=== PATIENT | female | born 1930 | race Caucasian/White ===

== ENCOUNTER 2017-09-22 14:09 | Inpatient (IN) | payer OTHER ==
[2017-09-22 15:11] LABS: Absolute Lymphocytes (CBC) 1.4 K/uL (0.7-4.9); Absolute Monocytes 0.8 K/uL (0.1-1.3); Absolute Neutrophil 6.7 K/uL (1.8-8.0); Basophils % 0.6 % (0-1.3); Hematocrit 28.8 % (36.0-45.0); Lymphocytes % 15.3 % (15.3-44.8); MCH 27.1 pg (27.0-35.0); MCV 87.8 fL (80-100); MPV 9.3 fL (7.6-11.3); Monocytes % 9.1 % (3.3-12.3); RBC Red Blood Cell Count 3.28 M/uL (3.86-4.86)
--- NOTE | 2017-09-22 15:12 | RAD REPORT ---
EXAM DESCRIPTION: [place] Single View4 2:46 pm CLINICAL HISTORY: Chest pain COMPARISON: August 31, 2017 FINDINGS: The lungs appear clear of acute infiltrate. The heart is mildly enlarged. Postsurgical changes involve the chest. IMPRESSION: No acute abnormalities displayed
[2017-09-22 15:35] LABS: Albumin 3.2 g/dL (3.2-5.5); Bilirubin Direct 0.1 mg/dL (0-0.2); Bilirubin Total 0.5 mg/dL (0.3-1.2); Magnesium 2.4 mg/dL (1.8-2.5); Protein, Total 6.3 g/dL (6.0-8.3)
[2017-09-22 15:41] LABS: Potassium 5.7 mEq/L (3.6-5.0)
--- NOTE | 2017-09-22 16:05 | EDPHYS ---
Physician Documentation [facility] Name: Lainey Johnson Age: 87 yrs Sex: Female : 1930 Arrival Date: 09/22/2017 Time: 14:12 Bed 3 Private MD: ED Physician Sergio Johnson HPI: 09/22 14:39 This 87 yrs old Female presents to ER via EMS with complaints of Fall Injury kdr \T\ near syncope. 14:39 The patient has experienced near-syncope, felt dizzy, felt faint, felt generally weak. kdr Onset: The symptoms/episode began/occurred suddenly, just prior to arrival. Duration: This was a single episode, that lasted an unknown period of time. Context: the episode(s) was witnessed, by family, son, occurred on a street or driveway, While walking, occurred while the patient was walking, Just prior to the episode the patient experienced dizziness, weakness. Associated injury: Other: There is blood around her mouth but no obvious injury to her lips or mouth. Associated signs and symptoms: Pertinent positives: dizziness, lightheadedness, weakness. Current symptoms: Still feels generally weak but no other c/o at this time. The patient has experienced similar episodes in the past, today's symptoms are similar, to previous The patient states that she has had similar problems before. The patient has been recently seen by a physician: The patient was recently discharged from [facility] for cellulitis of both feet. She spent a few days in [place] [facility] and was then discharged. Historical: - Allergies: 14:36 CHLORINE; jl7 14:36 Lyrica; jl7 14:36 metformin; jl7 14:36 Morphine; jl7 14:36 Sulfa (Sulfonamide Antibiotics); jl7 14:36 Tetanus Vaccines \T\ Toxoid; jl7 - Home Meds: 14:36 gabapentin 600 mg oral tab [Active]; Lasix 40 mg Oral tab 1 tab once daily [Active]; jl7 atorvastatin 10 mg Oral tab 1 tab nightly [Active]; tizanidine 4 mg oral cap [Active]; ropinirole 2 mg oral tab 1 tab [Active]; losartan 100 mg Oral tab 1 tab once daily [Active]; mirtazapine 15 mg Oral tab 1 tab once daily [Active]; Januvia 50 mg oral tab [Active]; metoprolol succinate 100 mg Oral Tb24 1 tab once daily [Active]; meclizine 25 mg Oral tab 1 tab 3 times per day [Active]; omeprazole 40 mg Oral cpDR once daily [Active]; Plavix 75 mg Oral tab 1 tab once daily [Active]; acetaminophen-codeine 300-15 mg Oral tab 1 tab every 6 hours [Active]; tramadol 50 mg Oral tab [Active]; promethazine 12.5 mg Oral tab [Active]; Flomax 0.4 mg Oral cp24 1 cap once daily [Active]; duloxetine 20 mg Oral cpDR 2 times per day [Active]; allopurinol 100 mg Oral tab 1 tab once daily [Active]; aspirin 81 mg Oral TbEC 1 tab once daily [Active]; Levemir 100 unit/mL subcutaneous soln [Active]; Novolin R Sub-Q per sliding scale [Active]; - PMHx: 14:36 Anemia; CAD; Depression; Diabetes - IDDM; GERD; Gout; High Cholesterol; Hypertension; jl7 Myocardial infarction; restless leg syndrome; - PSHx: 14:36 double bypass; Hysterectomy; jl7 15:35 leg surgery; Lumpectomy; throat expansion surgery; hiatal hernia; Hernia repair; back ae1 surgery; liver bypass; - Immunization history: Last tetanus immunization: unknown. - Social history:: Smoking status: Patient/guardian denies using tobacco. ROS: 14:39 Constitutional: Negative for fever, chills, and weight loss, Eyes: Negative for injury, kdr pain, redness, and discharge, Neck: Negative for injury, pain, and swelling, Cardiovascular: Negative for chest pain, palpitations, and edema, Respiratory: Negative for shortness of breath, cough, wheezing, and pleuritic chest pain, Abdomen/GI: Negative for abdominal pain, nausea, vomiting, diarrhea, and constipation, Back: Negative for injury and pain, : Negative for injury, bleeding, discharge, and swelling, MS/Extremity: Negative for injury and deformity, Skin: Negative for injury, rash, and discoloration, Psych: Negative for depression, anxiety, suicide ideation, homicidal ideation, and hallucinations, Allergy/Immunology: Negative for hives, rash, and allergies, Endocrine: Negative for neck swelling, polydipsia, polyuria, polyphagia, and marked weight changes, Hematologic/Lymphatic: Negative for swollen nodes, abnormal bleeding, and unusual bruising. 14:39 Neuro: Positive for dizziness, near syncope, tremor, weakness, Negative for altered mental status, headache, hearing loss, loss of consciousness, numbness, seizure activity, speech changes, syncope, tingling, tinnitus, visual changes. Exam: 15:41 Constitutional: This is a well developed, well nourished patient who is awake, alert, kdr and in no acute distress. Head/Face: Normocephalic, atraumatic. Eyes: Pupils equal round and reactive to light, extra-ocular motions intact. Lids and lashes normal. Conjunctiva and sclera are non-icteric and not injected. Cornea within normal limits. Periorbital areas with no swelling, redness, or edema. Neck: Trachea midline, no thyromegaly or masses palpated, and no cervical lymphadenopathy. Supple, full range of motion without nuchal rigidity, or vertebral point tenderness. No Meningismus. Chest/axilla: Normal chest wall appearance and motion. Nontender with no deformity. No lesions are appreciated. Respiratory: Lungs have equal breath sounds bilaterally, clear to auscultation and percussion. No rales, rhonchi or wheezes noted. No increased work of breathing, no retractions or nasal flaring. Abdomen/GI: Soft, non-tender, with normal bowel sounds. No distension or tympany. No guarding or rebound. No evidence of tenderness throughout. Back: No spinal tenderness. No costovertebral tenderness. Full range of motion. Skin: Warm, dry with normal turgor. Normal color with no rashes, no lesions, and no evidence of cellulitis. MS/ Extremity: Pulses equal, no cyanosis. Neurovascular intact. Full, normal range of motion. Psych: Awake, alert, with orientation to person, place and time. Behavior, mood, and affect are within normal limits. 15:41 Chest/axilla: Inspection: normal, Palpation: is normal, Axilla: are normal, Breasts: 15:41 Cardiovascular: Rate: bradycardic, Rhythm: irregular, Pulses: no pulse deficits are appreciated, Heart sounds: normal, Edema: is not appreciated, JVD: is not appreciated. Vital Signs: 14:12 BP 109 / 42; Pulse 48; Resp 14 S; Temp 97.6(O); Pulse Ox 93% on R/A; Weight 77.56 kg jl7 (R); Height 5 ft. 4 in. (162.56 cm) (R); Pain 6/10; 15:08 BP 106 / 48; Pulse 47; Resp 16 S; Pulse Ox 99% on 2 lpm NC; jl7 15:53 BP 105 / 46; Pulse 49; Resp 14 S; Pulse Ox 99% on 2 lpm NC; jl7 14:12 Body Mass Index 29.35 (77.56 kg, 162.56 cm) jl7 Moffat Coma Score: 14:12 Eye Response: spontaneous(4). Verbal Response: oriented(5). Motor Response: obeys jl7 commands(6). Total: 15. Trauma Score (Adult): 14:12 Eye Response: spontaneous(1); Verbal Response: oriented(1); Motor Response: obeys jl7 commands(2); Systolic BP: > 89 mm Hg(4); Respiratory Rate: 10 to 29 per min(4); Edward Score: 15; Trauma Score: 12 MDM: 14:13 Patient medically screened. [facility] 09/22 14:17 Order name: Basic Metabolic Panel; Complete Time: 15:57 kdr 09/22 14:17 Order name: BNP; Complete Time: 15:38 kdr 09/22 14:17 Order name: CBC with Diff; Complete Time: 15:38 kdr 09/22 14:17 Order name: LFT's; Complete Time: 15:57 kdr 09/22 14:17 Order name: Magnesium; Complete Time: 15:57 kdr 09/22 14:17 Order name: PT-INR; Complete Time: 15:38 kdr 09/22 14:17 Order name: Ptt, Activated; Complete Time: 15:38 kdr 09/22 14:17 Order name: Troponin (emerg Dept Use Only); Complete Time: 15:38 kdr 09/22 14:17 Order name: XRAY Chest (1 view); Complete Time: 15:38 kdr 09/22 14:17 Order name: EKG; Complete Time: 14:18 kdr 09/22 14:17 Order name: Cardiac monitoring; Complete Time: 14:27 kdr 09/22 14:17 Order name: EKG - Nurse/Tech; Complete Time: 14:27 kdr 09/22 14:17 Order name: IV Saline Lock; Complete Time: 15:00 kdr 09/22 14:17 Order name: Labs collected and sent; Complete Time: 15: kdr 09/22 14:17 Order name: O2 Per Protocol; Complete Time: kdr 09/22 14:17 Order name: O2 Sat Monitoring; Complete Time: : kdr Administered Medications: 16:05 Drug: Albuterol 2.5 mg Route: Inhalation; jl7 16:08 Drug: D50W 50 ml Route: IVP; Site: left upper arm; [facility] 16:52 Follow up: Response: No adverse reaction [facility] 16:11 Drug: Insulin Regular Human 10 units {Co-Signature: ae1 (Brad Kwok RN).} Route: jl7 IVP; Site: left upper arm; 16:52 Follow up: Response: No adverse reaction [facility] 16:22 Drug: Calcium Gluconate 1 grams Route: IVPB; Infused Over: 60 mins; Site: left upper [facility] arm; 17:22 Follow up: Response: No adverse reaction; IV Status: Completed infusion [facility] 16:23 Drug: Albuterol 2.5 mg Route: Inhalation; [facility] 16:52 Drug: Albuterol 2.5 mg Route: Inhalation; [facility] Disposition: 09/22/17 16:05 Hospitalization ordered by Kenton Olmedo for Inpatient Admission. Preliminary diagnosis is Acute renal failure, hyperkalemia, altered mental status. - Bed requested for Telemetry/MedSurg (Inpatient). - Status is Inpatient Admission. jl7 - Condition is Fair. - Problem is new. - Symptoms are unchanged. UTI on Admission? No Signatures: Dispatcher [employer] EDSergio Walter MD MD kdr Williams, Irene, RN RN iw Elliott, Andrea, RN RN ae1 Holger Luna RN RN jl7 Brad Kwok RN ae1
--- NOTE | 2017-09-22 16:05 | ER ---
Nurse's Notes [facility] Name: Lainey Johnson Age: 87 yrs Sex: Female : 1930 Arrival Date: 09/22/2017 Time: 14:12 Bed 3 Private MD: Diagnosis: Acute renal failure, hyperkalemia, altered mental status Presentation: 09/22 14:12 Presenting complaint: EMS states: Pt got dizzy and fell to the ground, denies LOC. Son tavo eased her to the ground. Her HR was 45 upon arrival, BP was 100 systolic. Care prior to arrival: Medication(s) given: Atropine .5 mg, IVP IV initiated. 22 GA, in the left antecubital area. Mechanism of Injury: Fall from standing position. Trauma event details: Injury occurred in the [facility]. 14:12 Acuity: BRIANA 3 jl7 14:12 Method Of Arrival: EMS: [facility] jl7 15:10 Transition of care: patient was not received from another setting of care. Onset of tavo symptoms was September 22, 2017. Trauma Activation: Not Applicable Physician: ED Physician; Name: ; Notified At: ; Arrived At: Physician: General Surgeon; Name: ; Notified At: ; Arrived At: Physician: Radiology; Name: ; Notified At: ; Arrived At: Physician: Respiratory; Name: ; Notified At: ; Arrived At: Physician: Lab; Name: ; Notified At: ; Arrived At: Historical: - Allergies: 14:36 CHLORINE; jl7 14:36 Lyrica; jl7 14:36 metformin; jl7 14:36 Morphine; jl7 14:36 Sulfa (Sulfonamide Antibiotics); jl7 14:36 Tetanus Vaccines \T\ Toxoid; jl7 - Home Meds: 14:36 gabapentin 600 mg oral tab [Active]; Lasix 40 mg Oral tab 1 tab once daily [Active]; jl7 atorvastatin 10 mg Oral tab 1 tab nightly [Active]; tizanidine 4 mg oral cap [Active]; ropinirole 2 mg oral tab 1 tab [Active]; losartan 100 mg Oral tab 1 tab once daily [Active]; mirtazapine 15 mg Oral tab 1 tab once daily [Active]; Januvia 50 mg oral tab [Active]; metoprolol succinate 100 mg Oral Tb24 1 tab once daily [Active]; meclizine 25 mg Oral tab 1 tab 3 times per day [Active]; omeprazole 40 mg Oral cpDR once daily [Active]; Plavix 75 mg Oral tab 1 tab once daily [Active]; acetaminophen-codeine 300-15 mg Oral tab 1 tab every 6 hours [Active]; tramadol 50 mg Oral tab [Active]; promethazine 12.5 mg Oral tab [Active]; Flomax 0.4 mg Oral cp24 1 cap once daily [Active]; duloxetine 20 mg Oral cpDR 2 times per day [Active]; allopurinol 100 mg Oral tab 1 tab once daily [Active]; aspirin 81 mg Oral TbEC 1 tab once daily [Active]; Levemir 100 unit/mL subcutaneous soln [Active]; Novolin R Sub-Q per sliding scale [Active]; - PMHx: 14:36 Anemia; CAD; Depression; Diabetes - IDDM; GERD; Gout; High Cholesterol; Hypertension; jl7 Myocardial infarction; restless leg syndrome; - PSHx: 14:36 double bypass; Hysterectomy; jl7 15:35 leg surgery; Lumpectomy; throat expansion surgery; hiatal hernia; Hernia repair; back ae1 surgery; liver bypass; - Immunization history: Last tetanus immunization: unknown. - Social history:: Smoking status: Patient/guardian denies using tobacco. Screenin:12 Abuse screen: Denies threats or abuse. Denies injuries from another. Nutritional jl7 screening: No deficits noted. Tuberculosis screening: No symptoms or risk factors identified. 15:09 Fall Risk Fall in past 12 months (25 points). IV access (20 points). Gait- Weak (10 jl7 pts.). Total Marrero Fall Scale indicates High Risk Score (45 or more points). Fall prevention measures have been instituted. Side Rails Up X 2 Placed Close to Nursing Station Frequent Obs/Assessments Occuring Family Present and informed to notify staff if the need to leave the bedside As available patient and family educated on Fall Prevention Program and Strategies. Primary Survey: 14:12 A: Airway: patent. Breathing/Chest: Respiratory pattern: regular, Respiratory effort: jl7 spontaneous, Chest inspection: symmetrical rise and fall of the chest. Circulation: Skin color: pink. Disability Alert. 15:10 Reassessment Breathing/Chest Respiratory pattern Regular Respiratory effort Spontaneous jl7 Unlabored Breath sounds Clear Chest inspection Symmetrical. Assessment: 14:30 General: Appears in no apparent distress. uncomfortable, Behavior is calm, cooperative, jl7 appropriate for age. Pain: Complains of pain in headache Pain currently is 6 out of 10 on a pain scale. Neuro: Level of Consciousness is awake, alert, obeys commands, Oriented to person, place, time, situation. EENT: Dentures present. dried blood noted around lips. Small abrasion noted to middle of bottom lip.. Cardiovascular: Patient's skin is warm and dry. Respiratory: Airway is patent Respiratory effort is even, unlabored, Respiratory pattern is regular, symmetrical, Breath sounds are clear bilaterally. GI: No signs and/or symptoms were reported involving the gastrointestinal system. : No signs and/or symptoms were reported regarding the genitourinary system. Derm: Skin is pink, warm \T\ dry. Musculoskeletal: No signs and/or symptoms reported regarding the musculoskeletal system. 15:55 Reassessment: Patient and/or family updated on plan of care and expected duration. Pain jl7 level reassessed. Patient is alert, oriented x 3, equal unlabored respirations, skin warm/dry/pink. family remains at the bedside. 16:45 Reassessment: Dr. Olmedo at bedside discussing plan of care. jl7 Vital Signs: 14:12 BP 109 / 42; Pulse 48; Resp 14 S; Temp 97.6(O); Pulse Ox 93% on R/A; Weight 77.56 kg jl7 (R); Height 5 ft. 4 in. (162.56 cm) (R); Pain 6/10; 15:08 BP 106 / 48; Pulse 47; Resp 16 S; Pulse Ox 99% on 2 lpm NC; jl7 15:53 BP 105 / 46; Pulse 49; Resp 14 S; Pulse Ox 99% on 2 lpm NC; jl7 14:12 Body Mass Index 29.35 (77.56 kg, 162.56 cm) jl7 Kinsman Coma Score: 14:12 Eye Response: spontaneous(4). Verbal Response: oriented(5). Motor Response: obeys jl7 commands(6). Total: 15. Trauma Score (Adult): 14:12 Eye Response: spontaneous(1); Verbal Response: oriented(1); Motor Response: obeys jl7 commands(2); Systolic BP: > 89 mm Hg(4); Respiratory Rate: 10 to 29 per min(4); Kinsman Score: 15; Trauma Score: 12 ED Course: 14:12 Patient arrived in ED. jl7 14:12 Sergio Johnson MD is Attending Physician. kdr 14:12 Patient has correct armband on for positive identification. Placed in gown. Bed in low jl7 position. Call light in reach. Side rails up X2. 14:12 Oxygen administration via nasal cannula \T\ 2L/min. Thermoregulation: warm blanket given jl7 to patient. 14:15 Triage completed. jl7 14:26 EKG done, by ED staff, reviewed by Sergio Johnson MD. jb1 14:41 X-ray completed. Portable x-ray completed in exam room. Patient tolerated procedure la2 well. 14:44 XRAY Chest (1 view) In Process Unspecified. EDMS 14:59 Accessed peripheral vein via ultrasound, utilizing dynamic ultrasound technique using la1 18G Nexia IV Catheter Clean \T\ dry. Good blood return. Flushes easily. 15:08 Arm band placed on right wrist. jl7 15:30 Holger Luna, IRIS is Primary Nurse. jl7 15:41 Notified ED physician of a critical lab result(s). K-5.7. la1 16:03 Kenton Olmedo MD is Hospitalizing Provider. kdr 17:24 No provider procedures requiring assistance completed. Patient admitted, IV remains in jl7 place. intact, No redness/swelling at site. Administered Medications: 16:05 Drug: Albuterol 2.5 mg Route: Inhalation; jl7 16:08 Drug: D50W 50 ml Route: IVP; Site: left upper arm; jl7 16:52 Follow up: Response: No adverse reaction jl7 16:11 Drug: Insulin Regular Human 10 units {Co-Signature: ae1 (Brad Kwok RN).} Route: jl7 IVP; Site: left upper arm; 16:52 Follow up: Response: No adverse reaction jl7 16:22 Drug: Calcium Gluconate 1 grams Route: IVPB; Infused Over: 60 mins; Site: left upper jl7 arm; 17:22 Follow up: Response: No adverse reaction; IV Status: Completed infusion jl7 16:23 Drug: Albuterol 2.5 mg Route: Inhalation; jl7 16:52 Drug: Albuterol 2.5 mg Route: Inhalation; jl7 Outcome: 16:05 Decision to Hospitalize by Provider. kdr 17:24 Admitted to Med/surg accompanied by tech, family with patient, via stretcher, room 408, jl7 Report called to Nurse Charity 17:24 Condition: stable 17:24 Discharge instructions given to patient, Instructed on the need for admit, Demonstrated understanding of instructions. 17:25 Patient left the ED. jl7 Signatures: Dispatcher [employer] EDPranav Mohamud jbSergio Parekh MD MD kdr Flaco Espitia RN RN la1 Brad Kwok RN RN ae1 Holger Luna RN RN jl7 Kavita Cleary2 Brad Kwok RN ae1
[2017-09-22] MEDS ORDERED: ONDANSETRON 4 MG/2 ML VIAL IV PRN (16:20)
[2017-09-22] MEDS ORDERED: INSULIN -REGULAR HUMAN 50 UNIT/0.5 ML ML ONE (16:22)
[2017-09-22] MEDS ORDERED: ALBUTEROL 2.5 MG/3 ML NEB SOL ONE (16:22)
[2017-09-22] MEDS ORDERED: D50W 25 GM/50 ML SYRINGE IV ONE (16:22)
[2017-09-22] MEDS: INSULIN -REGULAR HUMAN 50 UNIT/0.5 ML ML SQ SCH ×2 (16:30→21:00)
[2017-09-22] MEDS ORDERED: CALCIUM GLUCONATE 1gm/100 ML NS (4.65 mEq/100mL) IV ONE ×2 (17:00)
[2017-09-22] MEDS: ENOXAPARIN 30 MG/0.3 ML SQ SCH ×2 (17:00→20:53)
[2017-09-22] MEDS: NA CHLORIDE 0.9% 1,000 ML IV SCH ×2 (17:00→20:51)
[2017-09-22] MEDS: ACETAMINOPHEN 500 MG TAB PO PRN (20:54)
--- NOTE | 2017-09-23 02:05 | HP ---
Date of Admission: 09/22/2017 Code Status: DNR. Chief Complaint: Near syncopal episode. History Of Present Illness: The patient is an 87-year-old female with past medical history of diabetes, heart disease, hyperlipidemia, hypertension, restless legs syndrome, coronary artery disease, anemia, who was recently discharged from the hospital with urinary tract infection. The patient had been discharged to rehab where she received 2 weeks of IV antibiotics and was then discharged home. Since being home, the patient has noticed some difficulty keeping her posture and reports some pain in her back and neck, which is chronic. The patient does use a walker and was walking with her son. When she had a near syncopal episode, the patient states that she was unable to keep herself upright. She did not lose consciousness. She fell towards the wall, but her son was able to catch her. She did hit and ended up hiting her lip with some bleeding. No head trauma or fall. No seizure-type activity. The patient's symptoms are constant, moderate, and progressively worsening. The patient denies any urinary or fecal incontinence. No fevers or chills. The patient was then brought into the ER. Upon arrival, her workup revealed a potassium of 5.7. Creatinine was 2.96 upon discharge. Previous admission was normal. Troponin level was 0.05. WBC was normal. Of note, the patient was recently started on gabapentin 600 mg 2 pills at bedtime. The patient did take her medications today. Chest x-ray was done, which did not show any acute changes. The patient was then referred for admission. The patient was also given some treatment for her hyperkalemia. When seen in the ER, the patient was awake, alert, oriented x3, in some mild distress. Past Medical History: Diabetes, anemia, coronary artery disease status post CABG, depression, GERD, gout, hyperlipidemia, hypertension, history of MA, and restless legs syndrome. Surgical History: Hysterectomy, hiatal hernia repair, CABG, cardiac stents, right leg surgery. Allergies: SULFA, WHICH CAUSES ITCHING, HIVES AND RASH. METFORMIN, MORPHINE WHICH CAUSES RASH. PREGABALIN ALSO CAUSES RASH. CHLORINE CAUSES ANAPHYLAXIS. TETANUS VACCINE ALSO CAUSES RASH. Medications: Reviewed. Social History: The patient denies any illicit drug use, alcohol use, or tobacco use. She uses a walker for ambulation. The patient was recently to be discharged from rehab, has good social support. Family History: Both parents had heart disease. Review of Systems: An 11-point system reviewed, negative except as per HPI. Physical Examination: VITAL SIGNS: Blood pressure 109/42, pulse 48, respirations 14, temperature 97.6 , pulse ox 93% on room air. General: Awake, alert, oriented x3. Some mild distress. Elderly female, somewhat ill-appearing. HEENT: Normocephalic, atraumatic. PERRLA. EOMI. Dry mucous membranes. Some dried blood in the mouth around the lips. Oropharynx is clear. No exudate. Poor dentition. Conjunctivae anicteric. Neck: Supple. No JVD. Trachea midline. CV: S1 and S2. Sinus bradycardia. Peripheral pulses are weak bilaterally. Respiratory: Clear to auscultation bilaterally. No wheezing. No stridor. No use of accessory muscles. Gastrointestinal: Abdomen is soft, nontender, nondistended. Positive bowel sounds. No guarding or rigidity. Extremities: No clubbing, cyanosis. The patient does have chronic venous stasis edema. No calf tenderness. Skin: Chronic venous stasis changes of the bilateral lower extremities. Neuro: Cranial nerves 2 through 12 intact grossly. No focal neurological deficit. Strength is 5/5 bilateral upper and lower extremities. Sensation is decreased to light touch in the lower extremities. Speech is normal. Psych: Mood is okay. Affect is full. Insight and judgment are fair. Laboratory Data: WBCs 9.1, H and H 8.9 and 28.8, platelets 212, neutrophils 74% . INR 1. Sodium 139, potassium 5.7, chloride 104, CO2 27, BUN 75, creatinine 2.96, glucose 151, calcium 8, magnesium 2.4. Troponin 0.05. BNP 837. Chest x- ray shows no acute abnormality. Assessment And Plan: An 87-year-old female with. 1. Acute dehydration. We will continue with IV fluids. 2. Near syncopal episode. Unclear etiology may be related to medication side effect. Recently started on gabapentin 1200 mg versus dehydration or neurocardiac etiology. We will place on cardiac telemetry and monitor. The patient is slightly bradycardic. We will place on fall precautions and obtain PT evaluation. 3. Hyperkalemia. The patient has received treatment including calcium, albuterol, insulin, and dextrose. We will repeat potassium level. 4. Diabetes mellitus type 2 with hyperglycemia with long-term use of insulin. We will continue sliding scale insulin and resume home medications. 5. Anemia of chronic disease. Monitor H and H. 6. Coronary artery disease status post coronary artery bypass graft, [place] artery, [place] heart without angina. 7. Mildly elevated troponin level. 8. Major depressive disorder. 9. Gastroesophageal reflux disease. Continue PPI. 10. Gout. 11. Hyperlipidemia mixed. 12. Essential hypertension. 13. Restless legs syndrome. The patient's Requip dose has been doubled. 14. Gastrointestinal and deep venous thrombosis prophylaxis with PPI and Lovenox. Plan: Admit the patient to med surgical inpatient. Reconcile home medications once available. Patient does have medical power of practice consultant and living will MATTHEW Voice ID: [id number] BRENDA
[2017-09-23] MEDS: NA CHLORIDE 0.9% 1,000 ML IV SCH ×2 (03:00→13:38)
[2017-09-23 04:32] LABS: Absolute Lymphocytes (CBC) 1.7 K/uL (0.7-4.9); Absolute Monocytes 1.2 K/uL (0.1-1.3); Absolute Neutrophil 6.4 K/uL (1.8-8.0); Basophils % 0.8 % (0-1.3); Eosinophils % 1.2 % (0-4.4); Hematocrit 29.7 % (36.0-45.0); Lymphocytes % 18.2 % (15.3-44.8); MCH 27.1 pg (27.0-35.0); MPV 9.9 fL (7.6-11.3); Monocytes % 12.4 % (3.3-12.3); RBC Red Blood Cell Count 3.38 M/uL (3.86-4.86)
[2017-09-23 04:33] LABS: Albumin 3.2 g/dL (3.2-5.5); Bilirubin Total 0.6 mg/dL (0.3-1.2); Protein, Total 6.5 g/dL (6.0-8.3)
[2017-09-23 04:52] LABS: Potassium 5.5 mEq/L (3.6-5.0)
--- NOTE | 2017-09-23 07:10 | EKG ---
Test Date: 2017-09-22 Test Time: 14:20:24 [employer]ber Roller [employer]inder: FORREST MEASUREMENT RESULTS: Intervals: Rate: 54 SC: 170 QRSD: 94 QT: 524 QTc: 496 [place]: P: 27 SC: 170 QRS: 61 T: 83 INTERPRETIVE STATEMENTS: Sinus bradycardia with premature atrial complexes in bigeminy T wave abnormality, consider anterior ischemia Prolonged QT Abnormal ECG Compared to ECG 08/29/2017 16:27:23 Premature atrial complexes are now present Prolonged QT interval now present Sinus rhythm no longer present T-wave abnormality still present Electronically Signed On 09-23-17 07:09:31 CDT by Damion Ramsey
[2017-09-23] MEDS: INSULIN -REGULAR HUMAN 50 UNIT/0.5 ML ML SQ SCH ×4 (07:30→21:00)
[2017-09-23] MEDS ORDERED: TRAMADOL HCL 50 MG TAB PO SCH (09:00)
[2017-09-23] MEDS ORDERED: METOPROLOL XL 100 MG TAB PO SCH (09:00)
[2017-09-23] MEDS: INSULIN DETEMIR 100 UNIT/1 ML INSULIN SQ SCH ×2 (09:00→21:00)
[2017-09-23] MEDS: ASPIRIN 81 MG CHEWABLE TABLET PO SCH (09:37)
[2017-09-23] MEDS: TAMSULOSIN 0.4 MG SR CAP PO SCH (09:37)
[2017-09-23] MEDS: DULOXETINE 20 MG CAP PO SCH (09:37)
[2017-09-23] MEDS: ROPINIROLE HCL 1 MG TAB PO SCH ×2 (09:38→22:38)
[2017-09-23] MEDS: CLOPIDOGREL 75 MG TABLET PO SCH (09:38)
[2017-09-23] MEDS: CODEINE 30MG/APAP 300MG TAB PO SCH ×3 (09:39→21:00)
[2017-09-23] MEDS ORDERED: SOD POLYSTYREN SUL 15 GM/60 ML UCUP PO ONE (13:04)
--- NOTE | 2017-09-23 14:26 | P.CNS ---
Date of Consult: 09/23/17 Reason for Consult: Hyperkalemia. AUNG Requesting Physician: Kenton Olmedo Chief Complaint: Near-syncope History of Present Illness: 87 yo WF presented to the ER following an episode of near-syncope. Limited HPI / ROS due to confusion. The patient is an 87-year-old female with past medical history of diabetes, heart disease, hyperlipidemia, hypertension, restless legs syndrome, coronary artery disease, anemia, who was recently discharged from the hospital with urinary tract infection. The patient had been discharged to rehab where she received 2 weeks of IV antibiotics and was then discharged home. Since being home, the patient has noticed some difficulty keeping her posture and reports some pain in her back and neck, which is chronic. The patient does use a walker and was walking with her son. When she had a near syncopal episode, the patient states that she was unable to keep herself upright. She did not lose consciousness. She fell towards the wall, but her son was able to catch her. She did hit and ended up biting her lip with some bleeding. No head trauma or fall. No seizure-type activity. The patient's symptoms are constant, moderate , and progressively worsening. The patient denies any urinary or fecal incontinence. No fevers or chills. The patient was then brought into the ER. Upon arrival, her workup revealed a potassium of 5.7. Creatinine was 2.96 upon discharge. Previous admission was normal. Troponin level was 0.05. WBC was normal. Of note, the patient was recently started on gabapentin 600 mg 2 pills at bedtime. The patient did take her medications today. Chest x-ray was done, which did not show any acute changes. The patient was then referred for admission. The patient was also given some treatment for her hyperkalemia. When seen in the ER, the patient was awake, alert, oriented x3, in some mild distress. 14:39 This 87 yrs old Female presents to ER via EMS with complaints of Fall Injury kdr \T\ near syncope. 14:39 The patient has experienced near-syncope, felt dizzy, felt faint, felt generally weak. kdr Onset: The symptoms/episode began/occurred suddenly, just prior to arrival. Duration: This was a single episode, that lasted an unknown period of time. Context : the episode(s) was witnessed, by family, son, occurred on a street or driveway , While walking, occurred while the patient was walking, Just prior to the episode the patient experienced dizziness, weakness. Associated injury: Other: There is blood around her mouth but no obvious injury to her lips or mouth. Associated signs and symptoms: Pertinent positives: dizziness, lightheadedness, weakness. Current symptoms: Still feels generally weak but no other c/o at this time. The patient has experienced similar episodes in the past, today's symptoms are similar, to previous The patient states that she has had similar problems before. The patient has been recently seen by a physician: The patient was recently discharged from [facility] for cellulitis of both feet. She spent a few days in rehab/[facility]ci and was then discharged. Allergies Sulfa (Sulfonamide Antibiotics) Allergy (Mild, Verified 08/29/17 21:12) Itching/Hives/Rash metformin Allergy (Verified 08/29/17 21:12) Itching/Hives/Rash morphine Allergy (Verified 08/29/17 21:12) Rash pregabalin [From Lyrica] Allergy (Verified 08/29/17 21:12) Rash Tetanus Vaccines and Toxoid Allergy (Verified 08/29/17 21:12) Itching/Hives/Rash CHLORINE Allergy (Severe, Uncoded 08/29/17 21:12) Anaphylaxis Home Medications: Allopurinol [Zyloprim*] 100 mg PO DAILY 10/03/16 Atorvastatin Calcium [Lipitor*] 10 mg PO BEDTIME 10/03/16 Furosemide [Lasix*] 40 mg PO DAILY 10/03/16 Gabapentin 1,200 mg PO BEDTIME 10/03/16 Insulin -Regular Human [Novolin -R*] 0 unit SQ SEECOM 10/03/16 Insulin Detemir [Levemir*] 18 unit SQ BEDTIME 10/03/16 Insulin Detemir [Levemir*] 25 unit SQ DAILY 10/03/16 Ropinirole HCl [Requip*] 2 mg PO BID 10/03/16 Acetaminophen with Codeine [Acetaminophen-Cod #3 Tablet] 1 tab PO Q6H 08/29/17 Aspirin 81 mg PO DAILY 08/29/17 Clopidogrel Bisulfate [Plavix*] 75 mg PO DAILY 08/29/17 Duloxetine HCl 40 mg PO DAILY 08/29/17 Losartan Potassium 100 mg PO DAILY 08/29/17 Meclizine HCl [Antivert*] 12.5 mg PO TID PRN 08/29/17 Metoprolol Succinate [Toprol Xl] 100 mg PO DAILY 08/29/17 Mirtazapine [Remeron*] 15 mg PO DAILY 08/29/17 Omeprazole [Prilosec] 40 mg PO DAILY 08/29/17 Promethazine HCl 12.5 mg PO Q6H PRN 08/29/17 Tamsulosin [Flomax] 0.4 mg PO DAILY #30 cap 09/03/17 Mirtazapine [Remeron] 15 mg PO BEDTIME 09/22/17 Nitrofurantoin Monohyd/M-Cryst [Nitrofurantoin [place]-Mcr 100 mg] 1 tab PO Q12H Sitagliptin Phosphate [Januvia] 50 mg PO DAILY 09/22/17 Tramadol HCl [Ultram] 1 tab PO Q8H 09/22/17 - Past Medical/Surgical History Diabetic: Yes -: Anemia -: CAD -: Depression -: IDDM -: GERD -: Gout -: HLD -: HTN -: DE -: Restless leg syndrome -: Hysterectomy -: Hernia repair -: CABG -: Cardiac stents -: Right leg sx -: Appendectomy -: Cholecystectomy - Family History Mother Medical History: Heart disease Father Medical History: Heart disease Brother Medical History: Heart disease Sister History Unknown: Yes Medical History: Heart disease - Social History Alcohol use: No CD- Drugs: No Caffeine use: Yes Place of Residence: Home Review of Systems 10-point ROS is otherwise unremarkable General: Weakness, Malaise Respiratory: Cough Neurological: Weakness, Confusion Physical Examination Temp Pulse Resp BP Pulse Ox 97.8 F 53 18 114/61 94 09/23/17 08:00 09/23/17 09:00 09/23/17 08:00 09/23/17 09:00 09/23/17 08:00 General: Cooperative, Confused HEENT: Atraumatic, Mucous membr. moist/pink Neck: Supple Respiratory: Clear to auscultation bilaterally Cardiovascular: Regular rate/rhythm, Edema Gastrointestinal: Soft and benign, Non-distended, No guarding Musculoskeletal: No clubbing, No contractures Integumentary: No rashes, No cyanosis Neurological: Abnormal speech Laboratory Data (last 24 hrs) 09/22/17 15:00: PT 11.8, INR 1.00, APTT 26.5 09/22/17 15:00: WBC 9.1 D, Hgb 8.9 L, Hct 28.8 L, Plt Count 212 09/22/17 15:00: B-Natriuretic Peptide 837 H 09/22/17 15:00: Sodium 139, Potassium 5.7 H*, BUN 75 H D, Creatinine 2.96 H D, Glucose 151 H, Magnesium 2.4 D, Total Bilirubin 0.5, AST 33, ALT 25, Alkaline Phosphatase 160 H Imagings Data: EXAM DESCRIPTION: [place]anga Single View09/22/2017 2:46 pm CLINICAL HISTORY: Chest pain COMPARISON: August 31, 2017 FINDINGS: The lungs appear clear of acute infiltrate. The heart is mildly enlarged. Postsurgical changes involve the chest. IMPRESSION: No acute abnormalities displayed Conclusions/Impression: A/ AUNG in the setting of hypotension/ bradycardia. Hyperkalemia DM II, controlled. Anemia in chronic illness. Iron Deficiency. Diastolic CHF, chronic. P. HTN with moderate TR. Hypocalcemia. Gout. Near-syncope complicated by hypotension/ bradycardia & gabapentin. Delirium. P/ Continue current POC and Medications. Agree with kayexalte. Adjust IVF. Reduce Metoprolol XL 50mg daily. Start Vitamin D. Send for a renal ultrasound. Place a wong catheter. Send UA. No NSAIDs. AM labs. Daily weight. Thank you kindly for the consultation. Case discussed with Dr. Olmedo.
--- NOTE | 2017-09-23 14:33 | PN ---
Date of Progress Note: 09/23/2017 Subjective: The patient is seen and examined. Chart reviewed and case discussed with RN. The patie nt is slightly more confused this morning. States she feels tired. Review of Systems: Negative except as above. Medications: Reviewed. Physical Examination: Vital Signs: Temperature 97.8, heart rate 53, blood pressure 114/61, respirations 18, O2 94% on 1 L via nasal cannula. General: Awake, alert, oriented x2, in some mild distress. Somewhat confused. CV: S1, S2. No murmurs. Regular rate and rhythm. Peripheral pulses present. Respiratory: Diminished breath sounds at the bases. Otherwise, no wheezing or stridor. Gastrointestinal: Abdomen is soft, nontender, nondistended. Positive bowel sounds. Extremities: No clubbing or cyanosis. The patient does have lower extremity edema. Skin: Chronic venous stasis changes, bilateral lower extremities. Neurologic: Nonfocal. Laboratory Data: Sodium 139, potassium 5.5, chloride 104, CO2 24, BUN 79, creatinine 3.14, glucose 1 38, calcium 8.2. WBC 9.5, H and H 9.2 and 29.7, platelets 207. Assessment And Plan: An 87-year-old female with: 1.Acute dehydration. The patient is on IV fluids. 2.Near syncopal episode, may be related to medication side effect. The patient was recently started on gabapentin. We will hold sedative medications for now. Fall precautions. PT eval. 3.Hyperkalemia. We will repeat Kayexalate secondary to acute kidney injury. 4.Acute kidney injury. Creatinine trending up. We will continue IV fluids. Follow up with Nephrol ogy recommendations. Avoid NSAIDs and nephrotoxins. 5.Diabetes mellitus type 2 with hyperglycemia with long-term use of insulin. Continue sliding scale insulin and resume home dose. 6.Anemia of chronic disease. We will monitor H and H. 7.Coronary artery disease status post coronary artery bypass graft, three affiliated artery and three affiliated heart w ithout angina. 8.Mildly elevated troponin level, likely secondary to acute kidney injury. No chest pain. 9.Major depressive disorder. Continue SSRI. 10.Gastroesophageal reflux disease. Continue PPI. 11.Gout. We will hold allopurinol given elevated creatinine. 12.Mixed hyperlipidemia, on statin. 13.Essential hypertension. Resume home medications. We will hold beta-boaz if the patient tereza nues to be bradycardic. 14.Restless legs syndrome. Continue Requip. 15.Gastrointestinal and deep venous thrombosis prophylaxis. 16.with PPI and Lovenox. Plan: Reconcile home medications. We will repeat potassium level. /MARYJO Voice ID: [id number] Report ID: [id number]
[2017-09-23] MEDS: NACHLORIDE 0.45% 1,000 ML IV SCH (18:14)
[2017-09-23] MEDS: METOPROLOL XL 50 MG TAB PO SCH (18:18)
[2017-09-23] MEDS: ENOXAPARIN 30 MG/0.3 ML SQ SCH (18:20)
--- NOTE | 2017-09-23 18:36 | RAD REPORT ---
EXAM DESCRIPTION: US - Renal Ultrasound-Complete - 09/23/2017 6:07 pm CLINICAL HISTORY: Acute renal insufficiency. AUNG. COMPARISON: None. FINDINGS: Both kidneys are normal in size, shape and echotexture. The right kidney measures 9.0 x 4.7 x 3.9 cm. No hydronephrosis, focal mass or perinephric fluid. The left kidney measures 9.5 x 5.3 x 5.1 cm. No hydronephrosis, focal mass or perinephric fluid. IMPRESSION: Unremarkable renal sonogram.
[2017-09-23] MEDS ORDERED: MIRTAZAPINE 15 MG TAB PO SCH (21:00)
[2017-09-23] MEDS: ACETAMINOPHEN 500 MG TAB PO PRN (22:36)
[2017-09-23] MEDS: ATORVASTATIN 10 MG TAB PO SCH (22:38)
[2017-09-24] MEDS: NACHLORIDE 0.45% 1,000 ML IV SCH ×4 (01:00→16:13)
[2017-09-24] MEDS: CODEINE 30MG/APAP 300MG TAB PO SCH ×5 (04:09→21:00)
[2017-09-24] MEDS: PANTOPRAZOLE 40MG TABLET PO SCH (05:44)
[2017-09-24 05:53] LABS: Absolute Monocytes 0.9 K/uL (0.1-1.3); Absolute Neutrophil 5.8 K/uL (1.8-8.0); Basophils % 0.3 % (0-1.3); Eosinophils % 1.1 % (0-4.4); Hematocrit 28.5 % (36.0-45.0); Lymphocytes % 13.2 % (15.3-44.8); MCH 27.5 pg (27.0-35.0); MCV 86.6 fL (80-100); MPV 9.2 fL (7.6-11.3); Monocytes % 11.3 % (3.3-12.3); RBC Red Blood Cell Count 3.29 M/uL (3.86-4.86)
[2017-09-24 06:42] LABS: Bilirubin Total 0.5 mg/dL (0.3-1.2); Phosphorus 5.3 mg/dL (2.5-4.3); Potassium 4.4 mEq/L (3.6-5.0); Protein, Total 5.9 g/dL (6.0-8.3); Uric Acid 6.7 mg/dL (2.6-8.0)
[2017-09-24] MEDS: INSULIN -REGULAR HUMAN 50 UNIT/0.5 ML ML SQ SCH ×4 (07:30→21:00)
[2017-09-24] MEDS: INSULIN DETEMIR 100 UNIT/1 ML INSULIN SQ SCH ×2 (08:49→21:00)
[2017-09-24] MEDS: VITAMIN D 5,000 UNIT CAP PO SCH (08:51)
[2017-09-24] MEDS: ROPINIROLE HCL 1 MG TAB PO SCH ×2 (08:51→19:53)
[2017-09-24] MEDS: ASPIRIN 81 MG CHEWABLE TABLET PO SCH (08:51)
[2017-09-24] MEDS: TAMSULOSIN 0.4 MG SR CAP PO SCH (08:51)
[2017-09-24] MEDS: METOPROLOL XL 50 MG TAB PO SCH (08:51)
[2017-09-24] MEDS: DULOXETINE 20 MG CAP PO SCH (08:51)
[2017-09-24] MEDS: CLOPIDOGREL 75 MG TABLET PO SCH (08:51)
[2017-09-24] MEDS: ENOXAPARIN 30 MG/0.3 ML SQ SCH (16:13)
--- NOTE | 2017-09-24 16:43 | PN ---
Date of Progress Note: 09/24/2017 Subjective: The patient seen and examined. Chart reviewed and case discussed with RN. The patient is much more alert and oriented, however, still feels very weak and appears lethargic. Review of Systems: Negative except as above. Medications: Reviewed. Physical Examination: Vital Signs: Temperature 97.6, heart rate 52, blood pressure 164/60, respirations 20, and O2 94% on 3 L via nasal cannula. General: Awake, alert, and oriented x3, in mild distress. Elderly female, obese, BMI 31.8. CV: S1, S2. No murmurs. Regular rate and rhythm. Peripheral pulses present. Respiratory: Moving air well bilaterally. No wheezing. Abdomen: Soft, nontender, nondistended. Positive bowel sounds. Extremities: No clubbing, cyanosis. The patient does have peripheral edema. Skin: Chronic venous stasis changes of the lower extremities. Neurologic: Nonfocal. Laboratory Data: Sodium 143, potassium 4.4, chloride 109, CO2 of 27, BUN 74, creatinine 1.86, glucos e 59, calcium 8.1, phosphorus 9.3. WBC 7.8, H and H 9.1 and 28.5, neutrophils 74%. Renal ultrasound shows unremarkable renal sonogram. Assessment And Plan: An 87-year-old female with; 1.Acute dehydration. Continue IV fluids, improving. 2.Near syncopal episode, may be related to medication side effect. Gabapentin has been held now orly ng with her other sedating medication. The patient refused to work with physical therapist today. W e will continue fall precautions. 3.Hyperkalemia, treated with Kayexalate, improved, secondary to acute kidney injury. 4.Acute kidney injury. Creatinine improving. Avoidance of nephrotoxins. Continue IV fluids. 5.Diabetes mellitus type 2 with hyperglycemia with long-term use of insulin. Continue sliding scale and long-acting insulin. 6.Anemia of chronic disease. Monitor H and H, stable. 7.Coronary artery disease, status post coronary artery bypass graft, eyak artery and eyak heart without angina. 8.Mildly elevated troponin level, likely secondary to acute kidney injury. No chest pain. 9.Major depressive disorder. SSRI. 10.Gastroesophageal reflux disease, PPI. 11.Gout. Hold allopurinol given elevated creatinine. Uric acid level is normal. 12.Hyperlipidemia, statin. 13.Essential hypertension. Beta boaz held due to bradycardia. 14.Restless legs syndrome. Continue Requip. 15.Gastrointestinal and deep venous thrombosis prophylaxis with PPI and Lovenox. Plan: The patient may need SNF placement or outpatient PT. The patient has a poor appetite and gene rally feels lethargic. /MARYJO Voice ID: [id number] Report ID: [id number]
[2017-09-24] MEDS: TRAMADOL HCL 50 MG TAB PO PRN (19:53)
[2017-09-24] MEDS: ATORVASTATIN 10 MG TAB PO SCH (19:53)
--- NOTE | 2017-09-24 20:19 | P.PN ---
Date of Service: 09/24/17 Vital Signs Temp Pulse Resp BP Pulse Ox 97.9 F 53 20 168/50 H 96 09/24/17 16:00 09/24/17 16:00 09/24/17 16:00 09/24/17 16:00 09/24/17 16:00 Medications Acetaminophen (Tylenol -Extra Strength) 500 mg PO Q4HP PRN PRN Reason: [id number] Stop: 10/22/17 16:21 Last Admin: 09/23/17 22:36 Dose: 500 mg Acetaminophen/Codeine Phosphate (Tylenol W/Codeine #3 Tab) 1 tab PO Q6H BAUDILIO Stop: 10/23/17 09:01 Last Admin: 09/24/17 17:57 Dose: 1 tab Aspirin (Aspirin Chewable) 81 mg PO DAILY BAUDILIO Stop: 10/23/17 09:01 Last Admin: 09/24/17 08:51 Dose: 81 mg Atorvastatin Calcium (Lipitor) 10 mg PO BEDTIME BAUDILIO Stop: 10/23/17 21:01 Last Admin: 09/24/17 19:53 Dose: 10 mg Cholecalciferol (Vitamin D 5,000 Iu Cap) 5,000 unit PO DAILY BAUDILIO Stop: 10/24/17 09:01 Last Admin: 09/24/17 08:51 Dose: 5,000 unit Clopidogrel Bisulfate (Plavix) 75 mg PO DAILY BAUDILIO Stop: 10/23/17 09:01 Last Admin: 09/24/17 08:51 Dose: 75 mg Duloxetine HCl (Cymbalta Delayed Release Pellets) 40 mg PO DAILY BAUDILIO Stop: 10/23/17 09:01 Last Admin: 09/24/17 08:51 Dose: 40 mg Enoxaparin Sodium (Lovenox 30 Mg Inj) 30 mg SQ DAILY 5 PM BAUDILIO Stop: 10/22/17 17:01 Last Admin: 09/24/17 16:13 Dose: 30 mg Home Med (Gabapentin [Gabapentin]) 1,200 mg PO BEDTIME BAUDILIO Stop: 10/24/17 21:01 Sodium Chloride (Sodium Chloride 0.45%) 1,000 mls @ 75 mls/hr IV .[id number] BAUDILIO Stop: 10/24/17 07:45 Last Admin: 09/24/17 16:13 Dose: 1,000 mls Insulin Detemir (Levemir) 18 units SQ BEDTIME BAUDILIO Stop: 10/23/17 21:01 Last Admin: 09/23/17 21:00 Dose: Not Given Insulin Detemir (Levemir) 25 units SQ DAILY BAUDILIO Stop: 10/23/17 09:01 Last Admin: 09/24/17 08:49 Dose: Not Given Insulin Human Regular (Novolin -R) 0 unit SQ ACHS BAUDILIO PRN Reason: Protocol Stop: 10/22/17 16:31 Last Admin: 09/24/17 16:11 Dose: Not Given Metoprolol Succinate (Toprol Xl) 50 mg PO DAILY BAUDILIO Stop: 10/23/17 15:01 Last Admin: 09/24/17 08:51 Dose: 50 mg Ondansetron HCl (Zofran) 4 mg IV Q4H PRN PRN Reason: NAUSEA / VOMITING Stop: 10/22/17 16:21 Pantoprazole Sodium (Protonix Tab) 40 mg PO DAILYAC BAUDILIO Stop: 10/24/17 06:31 Last Admin: 09/24/17 05:44 Dose: 40 mg Ropinirole HCl (Requip) 2 mg PO BID BAUDILIO Stop: 10/23/17 09:01 Last Admin: 09/24/17 19:53 Dose: 2 mg Tamsulosin HCl (Flomax) 0.4 mg PO DAILY BAUDILIO Stop: 10/23/17 09:01 Last Admin: 09/24/17 08:51 Dose: 0.4 mg Tramadol HCl (Ultram) 50 mg PO Q8H PRN PRN Reason: PAIN Stop: 10/23/17 09:01 Last Admin: 09/24/17 19:53 Dose: 50 mg Assessment/ Plan: Nephrology. Poor historian. "I don't know" CPS stable without CP or SOB. No acute events overnight. Vitals, medications, blood work and imaging reviewed in the chart. General: Cooperative, Confused HEENT: Atraumatic, Mucous membr. moist/pink Neck: Supple Respiratory: Clear to auscultation bilaterally Cardiovascular: Regular rate/rhythm, Edema Gastrointestinal: Soft and benign, Non-distended, No guarding Musculoskeletal: No clubbing, No contractures Integumentary: No rashes, No cyanosis Neurological: Abnormal speech Laboratory Data (last 24 hrs) 09/22/17 15:00: PT 11.8, INR 1.00, APTT 26.5 09/22/17 15:00: WBC 9.1 D, Hgb 8.9 L, Hct 28.8 L, Plt Count 212 09/22/17 15:00: B-Natriuretic Peptide 837 H 09/22/17 15:00: Sodium 139, Potassium 5.7 H*, BUN 75 H D, Creatinine 2.96 H D, Glucose 151 H, Magnesium 2.4 D, Total Bilirubin 0.5, AST 33, ALT 25, Alkaline Phosphatase 160 H Imagings Data: EXAM DESCRIPTION: [place] Single View09/22/2017 2:46 pm CLINICAL HISTORY: Chest pain COMPARISON: August 31, 2017 FINDINGS: The lungs appear clear of acute infiltrate. The heart is mildly enlarged. Postsurgical changes involve the chest. IMPRESSION: No acute abnormalities displayed Conclusions/Impression: A/ AUNG in the setting of hypotension/ bradycardia. Hyperkalemia DM II, controlled. Anemia in chronic illness. Iron Deficiency. Diastolic CHF, chronic. P. HTN with moderate TR. Hypocalcemia. Gout. Near-syncope complicated by hypotension/ bradycardia & gabapentin. Delirium. P/ Continue current POC and Medications. Reduce IVF. No NSAIDs. AM labs. Daily weight. Case discussed with Dr. Olmedo.
[2017-09-24] MEDS ORDERED: GABAPENTIN 1200 MG PO SCH (21:00)
[2017-09-24] MEDS ORDERED: GABAPENTIN 300 MG CAP PO SCH (21:00)
[2017-09-25 02:12] LABS: Urine Appearance CLOUDY; Urine Bilirubin NEGATIVE (NEG); Urine Blood 2+ (NEG); Urine Color YELLOW; Urine Glucose NEGATIVE (NEG); Urine Protein TRACE (NEG); Urine Urobilinogen 0.2 mg/dL (0.2-1.0)
[2017-09-25 02:24] LABS: Urine Bacteria >50 /HPF (<20); Urine Culture Reflex Order REFLEXED; Urine RBC >50 /HPF (NONE SEEN)
[2017-09-25] MEDS: CODEINE 30MG/APAP 300MG TAB PO SCH ×4 (04:08→20:31)
[2017-09-25] MEDS: NACHLORIDE 0.45% 1,000 ML IV SCH ×3 (05:08→23:44)
[2017-09-25] MEDS: PANTOPRAZOLE 40MG TABLET PO SCH (05:09)
[2017-09-25 05:27] LABS: Absolute Lymphocytes (CBC) 1.1 K/uL (0.7-4.9); Absolute Monocytes 0.7 K/uL (0.1-1.3); Basophils % 0.5 % (0-1.3); Eosinophils % 0.3 % (0-4.4); Lymphocytes % 14.1 % (15.3-44.8); MCH 26.6 pg (27.0-35.0); MCV 87.3 fL (80-100); MPV 9.6 fL (7.6-11.3); Monocytes % 8.7 % (3.3-12.3); RBC Red Blood Cell Count 3.56 M/uL (3.86-4.86)
[2017-09-25 05:30] LABS: Albumin 3.2 g/dL (3.2-5.5); Bilirubin Total 0.8 mg/dL (0.3-1.2); Potassium 4.9 mEq/L (3.6-5.0); Protein, Total 6.5 g/dL (6.0-8.3); Uric Acid 6.3 mg/dL (2.6-8.0)
[2017-09-25] MEDS: INSULIN -REGULAR HUMAN 50 UNIT/0.5 ML ML SQ SCH ×4 (07:30→20:31)
[2017-09-25] MEDS: INSULIN DETEMIR 100 UNIT/1 ML INSULIN SQ SCH ×2 (09:00→20:32)
[2017-09-25] MEDS: CLOPIDOGREL 75 MG TABLET PO SCH (09:19)
[2017-09-25] MEDS: TAMSULOSIN 0.4 MG SR CAP PO SCH (09:19)
[2017-09-25] MEDS: ASPIRIN 81 MG CHEWABLE TABLET PO SCH (09:19)
[2017-09-25] MEDS: DULOXETINE 20 MG CAP PO SCH (09:19)
[2017-09-25] MEDS: METOPROLOL XL 50 MG TAB PO SCH (09:19)
[2017-09-25] MEDS: VITAMIN D 5,000 UNIT CAP PO SCH (09:19)
[2017-09-25] MEDS: ROPINIROLE HCL 1 MG TAB PO SCH ×2 (09:19→20:30)
[2017-09-25] MEDS: CEFTRIAXONE/SWI 1gm 1 GM/10 ML SYR IV SCH (10:32)
[2017-09-25] MEDS: ENOXAPARIN 30 MG/0.3 ML SQ SCH (17:33)
--- NOTE | 2017-09-25 18:10 | PN ---
Date of Progress Note: 09/25/2017 Subjective: The patient is seen, examined, chart reviewed, and case discussed with RN. The patient feels significantly better. More awake and alert, willing to work with PT. Case also discuss with Teja Baron. Review of Systems: Negative except as above. Medications: Reviewed. Physical Examination: Vital Signs: Temperature 97, heart rate 56, blood pressure 132/58, respirations 16, and O2 saturatio n 93% on 2 L via nasal cannula. General: Awake, alert, oriented x3. No acute distress. Elderly female, obese, BMI 31.8. CV: S1 and S2. Regular rate and rhythm. No murmurs. Peripheral pulses present. Respiratory: Moving air well bilaterally. No wheezing. Gastrointestinal: Abdomen is soft, nontend er, nondistended. Positive bowel sounds. Extremities: No clubbing, cyanosis, or edema. Neurologic: Nonfocal. Laboratory Data: Sodium 143, potassium 4.9, chloride 109, CO2 24, BUN 51, creatinine 1.3, glucose 15 2, uric acid 6.3, and calcium 8.7. WBC 7.8, H and H 9.4, 31, and platelets 194. UA shows negative n itrite, 2+ leukocyte esterase, greater than 50 rbc's, greater than 50 wbc's, greater than 50 urine ba cteria. Urine culture pending. Assessment: An 87-year-old female with; 1.Acute dehydration, improved with IV fluids. 2.Acute kidney injury, creatinine improving, avoid NSAIDs and nephrotoxins. 3.Hyperkalemia, improved. We will continue to monitor. 4.Near syncopal episode, likely related to medication side effect. No further episodes. We will co ntinue physical therapy. 5.Anemia of chronic disease. Monitor H and H. 6.Diabetes mellitus type 2 with hyperglycemia with long-term use of insulin. Continue sliding scale . 7.Mildly elevated troponin level secondary to acute kidney injury. No chest pain. 8.Major depressive disorder. SSRI. 9.Gastroesophageal reflux disease. PPI. 10.Gout. Uric acid level is normal. We will hold allopurinol due to acute kidney injury. 11.Hyperlipidemia, statin. 12.Essential hypertension, stable. The patient is still bradycardic. 13.Restless legs syndrome. Continue Requip. 14.Hypoxia, improved with supplemental oxygenation. 15.Gastrointestinal and deep venous thrombosis prophylaxis with PPI and Lovenox. 16.Acute cystitis, urinary tract infection with hematuria. We will start on IV antibiotics. Follow up on cultures. Plan: Refer to SNF. Discharge once accepted. /MARYJO Voice ID: [id number] Report ID: [id number]
[2017-09-25] MEDS: ATORVASTATIN 10 MG TAB PO SCH (20:30)
[2017-09-25] MEDS ORDERED: GABAPENTIN 400 MG CAP PO SCH (21:00)
--- NOTE | 2017-09-25 21:31 | P.PN ---
Date of Service: 09/25/17 Vital Signs Temp Pulse Resp BP Pulse Ox 97.8 F 62 16 149/66 H 93 09/25/17 16:00 09/25/17 16:00 09/25/17 16:00 09/25/17 16:00 09/25/17 16:00 Medications Acetaminophen (Tylenol -Extra Strength) 500 mg PO Q4HP PRN PRN Reason: [id number] Stop: 10/22/17 16:21 Last Admin: 09/23/17 22:36 Dose: 500 mg Acetaminophen/Codeine Phosphate (Tylenol W/Codeine #3 Tab) 1 tab PO Q6H BAUDILIO Stop: 10/23/17 09:01 Last Admin: 09/25/17 20:31 Dose: 1 tab Aspirin (Aspirin Chewable) 81 mg PO DAILY BAUDILIO Stop: 10/23/17 09:01 Last Admin: 09/25/17 09:19 Dose: 81 mg Atorvastatin Calcium (Lipitor) 10 mg PO BEDTIME BAUDILIO Stop: 10/23/17 21:01 Last Admin: 09/25/17 20:30 Dose: 10 mg Cholecalciferol (Vitamin D 5,000 Iu Cap) 5,000 unit PO DAILY BAUDILIO Stop: 10/24/17 09:01 Last Admin: 09/25/17 09:19 Dose: 5,000 unit Clopidogrel Bisulfate (Plavix) 75 mg PO DAILY BAUDILIO Stop: 10/23/17 09:01 Last Admin: 09/25/17 09:19 Dose: 75 mg Duloxetine HCl (Cymbalta Delayed Release Pellets) 40 mg PO DAILY BAUDILIO Stop: 10/23/17 09:01 Last Admin: 09/25/17 09:19 Dose: 40 mg Enoxaparin Sodium (Lovenox 30 Mg Inj) 30 mg SQ DAILY 5 PM BAUDILIO Stop: 10/22/17 17:01 Last Admin: 09/25/17 17:33 Dose: 30 mg Gabapentin (Neurontin) 1,200 mg PO BEDTIME BAUDILIO Stop: 10/25/17 21:01 Last Admin: 09/25/17 20:30 Dose: 1,200 mg Sodium Chloride (Sodium Chloride 0.45%) 1,000 mls @ 75 mls/hr IV .[id number] BAUDILIO Stop: 10/24/17 07:45 Last Admin: 09/25/17 09:22 Dose: 1,000 mls Ceftriaxone Sodium/Sodium Chloride (Rocephin 1 Gm/10 Ml Swi Ivp) 1 gm in 10 mls @ 600 mls/hr IV DAILY BAUDILIO Stop: 10/25/17 10:01 Last Admin: 09/25/17 10:32 Dose: 10 mls Insulin Detemir (Levemir) 18 units SQ BEDTIME BAUDILIO Stop: 10/23/17 21:01 Last Admin: 09/25/17 20:32 Dose: 18 units Insulin Detemir (Levemir) 25 units SQ DAILY BAUDILIO Stop: 10/23/17 09:01 Last Admin: 09/25/17 09:00 Dose: Not Given Insulin Human Regular (Novolin -R) 0 unit SQ ACHS BAUDILIO PRN Reason: Protocol Stop: 10/22/17 16:31 Last Admin: 09/25/17 20:31 Dose: 2 unit Metoprolol Succinate (Toprol Xl) 50 mg PO DAILY BAUDILIO Stop: 10/23/17 15:01 Last Admin: 09/25/17 09:19 Dose: 50 mg Ondansetron HCl (Zofran) 4 mg IV Q4H PRN PRN Reason: NAUSEA / VOMITING Stop: 10/22/17 16:21 Pantoprazole Sodium (Protonix Tab) 40 mg PO DAILYAC BAUDILIO Stop: 10/24/17 06:31 Last Admin: 09/25/17 05:09 Dose: 40 mg Ropinirole HCl (Requip) 2 mg PO BID BAUDILIO Stop: 10/23/17 09:01 Last Admin: 09/25/17 20:30 Dose: 2 mg Tamsulosin HCl (Flomax) 0.4 mg PO DAILY BAUDILIO Stop: 10/23/17 09:01 Last Admin: 09/25/17 09:19 Dose: 0.4 mg Tramadol HCl (Ultram) 50 mg PO Q8H PRN PRN Reason: PAIN Stop: 10/23/17 09:01 Last Admin: 09/24/17 19:53 Dose: 50 mg Assessment/ Plan: Nephrology. CPS stable without CP or SOB. No acute events overnight. Fatigue and weakness. Vitals, medications, blood work and imaging reviewed in the chart. General: Obesity. NAD. HEENT: Atraumatic, Mucous membr. moist/pink Neck: Supple Respiratory: Clear to auscultation bilaterally Cardiovascular: Regular rate/rhythm, Edema Gastrointestinal: Soft and benign, Non-distended, No guarding Musculoskeletal: No clubbing, No contractures Integumentary: No rashes, No cyanosis Neurological: Abnormal speech Laboratory Data (last 24 hrs) 09/22/17 15:00: PT 11.8, INR 1.00, APTT 26.5 09/22/17 15:00: WBC 9.1 D, Hgb 8.9 L, Hct 28.8 L, Plt Count 212 09/22/17 15:00: B-Natriuretic Peptide 837 H 09/22/17 15:00: Sodium 139, Potassium 5.7 H*, BUN 75 H D, Creatinine 2.96 H D, Glucose 151 H, Magnesium 2.4 D, Total Bilirubin 0.5, AST 33, ALT 25, Alkaline Phosphatase 160 H Imagings Data: EXAM DESCRIPTION: [place] Single View09/22/2017 2:46 pm CLINICAL HISTORY: Chest pain COMPARISON: August 31, 2017 FINDINGS: The lungs appear clear of acute infiltrate. The heart is mildly enlarged. Postsurgical changes involve the chest. IMPRESSION: No acute abnormalities displayed Conclusions/Impression: A/ AUNG in the setting of hypotension/ bradycardia. Hyperkalemia DM II, controlled. Anemia in chronic illness. Iron Deficiency. Diastolic CHF, chronic. P. HTN with moderate TR. Hypocalcemia. Gout. Near-syncope complicated by hypotension/ bradycardia & gabapentin. Delirium. P/ Continue current POC and Medications. Follow up UA due to possible cystitis. No NSAIDs. AM labs. Daily weight. Case discussed with Dr. Olmedo.
[2017-09-26] MEDS: CODEINE 30MG/APAP 300MG TAB PO SCH ×4 (02:03→20:25)
[2017-09-26] MEDS: PANTOPRAZOLE 40MG TABLET PO SCH (05:49)
[2017-09-26] MEDS: INSULIN -REGULAR HUMAN 50 UNIT/0.5 ML ML SQ SCH ×4 (07:30→20:13)
[2017-09-26 07:31] LABS: Potassium 4.6 mEq/L (3.6-5.0)
[2017-09-26] MEDS: VITAMIN D 5,000 UNIT CAP PO SCH (08:56)
[2017-09-26] MEDS: METOPROLOL XL 50 MG TAB PO SCH (08:56)
[2017-09-26] MEDS: CLOPIDOGREL 75 MG TABLET PO SCH (08:57)
[2017-09-26] MEDS: ASPIRIN 81 MG CHEWABLE TABLET PO SCH (08:57)
[2017-09-26] MEDS: ROPINIROLE HCL 1 MG TAB PO SCH ×2 (08:57→20:25)
[2017-09-26] MEDS: TAMSULOSIN 0.4 MG SR CAP PO SCH (08:57)
[2017-09-26] MEDS: DULOXETINE 20 MG CAP PO SCH (08:57)
[2017-09-26] MEDS: CEFTRIAXONE/SWI 1gm 1 GM/10 ML SYR IV SCH (08:58)
[2017-09-26] MEDS: INSULIN DETEMIR 100 UNIT/1 ML INSULIN SQ SCH ×2 (08:59→20:24)
[2017-09-26] MEDS: CRANBERRY FRUIT EXTRACT 200 MG CAP PO SCH ×3 (10:35→20:25)
[2017-09-26] MEDS: NACHLORIDE 0.45% 1,000 ML IV SCH (10:37)
[2017-09-26] MEDS: TRAMADOL HCL 50 MG TAB PO PRN (11:37)
--- NOTE | 2017-09-26 14:03 | PN ---
Subjective: The patient seen, examined, chart reviewed, and case discussed with RN. The patient is doing better with physical therapy. She walked approximately 10 feet yesterday. The patient is much more awake and alert. Pain is controlled. Review of Systems: Negative except as above. Medications: Reviewed. Physical Examination: Vital Signs: Temperature 97, heart rate 62, blood pressure 157/68, respirations 18, and O2 98% on 2 L via nasal cannula. General: Awake, alert, oriented x3, in no acute distress. Elderly female, obese, BMI 31.8. CV: S1, S2. No murmurs. Peripheral pulses present. Respiratory: Moving air well bilaterally. No wheezing. Gastrointestinal: Soft abdomen, nontender, nondistended. Positive bowel sounds. Extremities: No clubbing, cyanosis, or edema. Neurologic: Nonfocal. Laboratory Data: Sodium 137, potassium 4.6, chloride 108, CO2 26, BUN 49, creatinine 1.23, glucose 1 43, and calcium 8.8. WBC 7.8, H and H 9.4, 31, platelets 194, and neutrophils 76.4%. Urine culture shows mixed pio. Assessment: An 87-year-old female with; 1.Acute dehydration, improved with IV fluids. 2.Acute kidney injury. Creatinine has improved. 3.Hyperkalemia, corrected. We will continue to monitor. 4.Near syncopal episode related to medication side effect, stable. Continue physical therapy. No n ew episodes. 5.Anemia of chronic disease. Continue to monitor H and H, stable. 6.Diabetes mellitus type 2 with hyperglycemia with long-term use of insulin. Continue sliding scale . 7.Elevated troponin level secondary to acute kidney injury. No chest pain. 8.Major depressive disorder. Continue SSRI. 9.Gastroesophageal reflux disease without esophagitis. PPI. 10.Gout. Allopurinol on hold due to acute kidney injury. 11.Hyperlipidemia. 12.Continue statin. 13.Essential hypertension, stable. Beta-boaz held due to bradycardia. Heart rate in the low 60s to 50s. 14.Restless legs syndrome. Continue Requip. 15.Hypoxia. The patient requiring 2 L via nasal cannula. Continue to wean as tolerated. 16.Acute cystitis with hematuria. Continue IV antibiotics. Urine culture shows mixed pio. 17.Gastrointestinal and deep venous thrombosis prophylaxis with PPI and Lovenox. Plan: Discharge once accepted to SNF. SA/MODL Voice ID: [id number] Report ID: [id number]
[2017-09-26] MEDS: ENOXAPARIN 30 MG/0.3 ML SQ SCH (16:41)
[2017-09-26] MEDS: GABAPENTIN 300 MG CAP PO SCH (20:25)
[2017-09-26] MEDS: ATORVASTATIN 10 MG TAB PO SCH (20:25)
--- NOTE | 2017-09-26 21:33 | P.PN ---
Date of Service: 09/26/17 Vital Signs Temp Pulse Resp BP Pulse Ox 98.5 F 18 L 18 153/67 H 91 09/26/17 20:00 09/26/17 20:00 09/26/17 20:00 09/26/17 20:00 09/26/17 20:00 Medications Acetaminophen (Tylenol -Extra Strength) 500 mg PO Q4HP PRN PRN Reason: HTFT-dy-SBOP Stop: 10/22/17 16:21 Last Admin: 09/23/17 22:36 Dose: 500 mg Acetaminophen/Codeine Phosphate (Tylenol W/Codeine #3 Tab) 1 tab PO Q6H BAUDILIO Stop: 10/23/17 09:01 Last Admin: 09/26/17 20:25 Dose: 1 tab Aspirin (Aspirin Chewable) 81 mg PO DAILY BAUDILIO Stop: 10/23/17 09:01 Last Admin: 09/26/17 08:57 Dose: 81 mg Atorvastatin Calcium (Lipitor) 10 mg PO BEDTIME BAUDILIO Stop: 10/23/17 21:01 Last Admin: 09/26/17 20:25 Dose: 10 mg Cholecalciferol (Vitamin D 5,000 Iu Cap) 5,000 unit PO DAILY BAUDILIO Stop: 10/24/17 09:01 Last Admin: 09/26/17 08:56 Dose: 5,000 unit Clopidogrel Bisulfate (Plavix) 75 mg PO DAILY BAUDILIO Stop: 10/23/17 09:01 Last Admin: 09/26/17 08:57 Dose: 75 mg Duloxetine HCl (Cymbalta Delayed Release Pellets) 40 mg PO DAILY BAUDILIO Stop: 10/23/17 09:01 Last Admin: 09/26/17 08:57 Dose: 40 mg Enoxaparin Sodium (Lovenox 30 Mg Inj) 30 mg SQ DAILY 5 PM BAUDILIO Stop: 10/22/17 17:01 Last Admin: 09/26/17 16:41 Dose: 30 mg Gabapentin (Neurontin) 300 mg PO TID BAUDILIO Stop: 10/26/17 21:01 Last Admin: 09/26/17 20:25 Dose: 300 mg Sodium Chloride (Sodium Chloride 0.45%) 1,000 mls @ 75 mls/hr IV .[id number] BAUDILIO Stop: 10/24/17 07:45 Last Admin: 09/26/17 10:37 Dose: 1,000 mls Ceftriaxone Sodium/Sodium Chloride (Rocephin 1 Gm/10 Ml Swi Ivp) 1 gm in 10 mls @ 600 mls/hr IV DAILY BAUDILIO Stop: 10/25/17 10:01 Last Admin: 09/26/17 08:58 Dose: 10 mls Insulin Detemir (Levemir) 18 units SQ BEDTIME BAUDILIO Stop: 10/23/17 21:01 Last Admin: 09/26/17 20:24 Dose: 18 units Insulin Detemir (Levemir) 25 units SQ DAILY BAUDILIO Stop: 10/23/17 09:01 Last Admin: 09/26/17 08:59 Dose: 25 units Insulin Human Regular (Novolin -R) 0 unit SQ ACHS BAUDILIO PRN Reason: Protocol Stop: 10/22/17 16:31 Last Admin: 09/26/17 20:13 Dose: Not Given Metoprolol Succinate (Toprol Xl) 50 mg PO DAILY BAUDILIO Stop: 10/23/17 15:01 Last Admin: 09/26/17 08:56 Dose: 50 mg Ondansetron HCl (Zofran) 4 mg IV Q4H PRN PRN Reason: NAUSEA / VOMITING Stop: 10/22/17 16:21 Pantoprazole Sodium (Protonix Tab) 40 mg PO DAILYAC BAUDILIO Stop: 10/24/17 06:31 Last Admin: 09/26/17 05:49 Dose: 40 mg Ropinirole HCl (Requip) 2 mg PO BID BAUDILIO Stop: 10/23/17 09:01 Last Admin: 09/26/17 20:25 Dose: 2 mg Tamsulosin HCl (Flomax) 0.4 mg PO DAILY BAUDILIO Stop: 10/23/17 09:01 Last Admin: 09/26/17 08:57 Dose: 0.4 mg Tramadol HCl (Ultram) 50 mg PO Q8H PRN PRN Reason: PAIN Stop: 10/23/17 09:01 Last Admin: 09/26/17 11:37 Dose: 50 mg Assessment/ Plan: Nephrology. CPS stable without CP or SOB. No acute events overnight. Feeling much better today. Vitals, medications, blood work and imaging reviewed in the chart. General: Obesity. NAD. HEENT: Atraumatic, Mucous membr. moist/pink Neck: Supple Respiratory: Clear to auscultation bilaterally Cardiovascular: Regular rate/rhythm, Edema Gastrointestinal: Soft and benign, Non-distended, No guarding Musculoskeletal: No clubbing, No contractures Integumentary: No rashes, No cyanosis Neurological: Abnormal speech Laboratory Data (last 24 hrs) 09/22/17 15:00: PT 11.8, INR 1.00, APTT 26.5 09/22/17 15:00: WBC 9.1 D, Hgb 8.9 L, Hct 28.8 L, Plt Count 212 09/22/17 15:00: B-Natriuretic Peptide 837 H 09/22/17 15:00: Sodium 139, Potassium 5.7 H*, BUN 75 H D, Creatinine 2.96 H D, Glucose 151 H, Magnesium 2.4 D, Total Bilirubin 0.5, AST 33, ALT 25, Alkaline Phosphatase 160 H Imagings Data: EXAM DESCRIPTION: [place] Single View09/22/2017 2:46 pm CLINICAL HISTORY: Chest pain COMPARISON: August 31, 2017 FINDINGS: The lungs appear clear of acute infiltrate. The heart is mildly enlarged. Postsurgical changes involve the chest. IMPRESSION: No acute abnormalities displayed Conclusions/Impression: A/ AUNG in the setting of hypotension/ bradycardia. Hyperkalemia DM II, controlled. Anemia in chronic illness. Iron Deficiency. Diastolic CHF, chronic. P. HTN with moderate TR. Hypocalcemia. Gout. Near-syncope complicated by hypotension/ bradycardia & gabapentin. Delirium. P/ Continue current POC and Medications. Follow up UA due to possible cystitis. Start Cranberry tabs for chronic cystitis. No NSAIDs. AM labs. Daily weight. Case discussed with Dr. Olmedo.
[2017-09-27] MEDS: CODEINE 30MG/APAP 300MG TAB PO SCH ×3 (03:52→15:25)
[2017-09-27] MEDS: NACHLORIDE 0.45% 1,000 ML IV SCH (03:54)
[2017-09-27] MEDS: PANTOPRAZOLE 40MG TABLET PO SCH (05:33)
[2017-09-27 06:03] VITALS: BMI 31.8
[2017-09-27 06:05] LABS: Absolute Lymphocytes (CBC) 1.1 K/uL (0.7-4.9); Absolute Monocytes 0.7 K/uL (0.1-1.3); Absolute Neutrophil 3.1 K/uL (1.8-8.0); Basophils % 0.5 % (0-1.3); Hematocrit 30.1 % (36.0-45.0); Lymphocytes % 21.4 % (15.3-44.8); MCH 27.3 pg (27.0-35.0); MCV 86.2 fL (80-100); MPV 8.9 fL (7.6-11.3); Monocytes % 13.9 % (3.3-12.3)
[2017-09-27 06:12] LABS: Potassium 4.3 mEq/L (3.6-5.0)
[2017-09-27] MEDS: INSULIN -REGULAR HUMAN 50 UNIT/0.5 ML ML SQ SCH ×3 (07:30→17:12)
[2017-09-27] MEDS: CRANBERRY FRUIT EXTRACT 200 MG CAP PO SCH ×2 (08:49→13:48)
[2017-09-27] MEDS: ROPINIROLE HCL 1 MG TAB PO SCH (08:50)
[2017-09-27] MEDS: GABAPENTIN 300 MG CAP PO SCH ×2 (08:51→13:48)
[2017-09-27] MEDS: METOPROLOL XL 50 MG TAB PO SCH (08:52)
[2017-09-27] MEDS: TAMSULOSIN 0.4 MG SR CAP PO SCH (08:53)
[2017-09-27] MEDS: CLOPIDOGREL 75 MG TABLET PO SCH (08:53)
[2017-09-27] MEDS: VITAMIN D 5,000 UNIT CAP PO SCH (08:53)
[2017-09-27] MEDS: CEFTRIAXONE/SWI 1gm 1 GM/10 ML SYR IV SCH (08:54)
[2017-09-27] MEDS: ASPIRIN 81 MG CHEWABLE TABLET PO SCH (08:54)
[2017-09-27] MEDS ORDERED: FLUCONAZOLE 100 MG TAB PO ONE (10:06)
[2017-09-27] MEDS ORDERED: Meropenem 500 MG VIAL IV SCH (10:06)
[2017-09-27] MEDS: DULOXETINE 20 MG CAP PO SCH (10:50)
[2017-09-27] MEDS: INSULIN DETEMIR 100 UNIT/1 ML INSULIN SQ SCH (10:51)
--- NOTE | 2017-09-27 12:59 | RAD REPORT ---
EXAM DESCRIPTION: RAD - Chest Single View - 09/27/2017 12:44 pm CLINICAL HISTORY: Device placement PICC line placement COMPARISON: September 22, 2017 FINDINGS: A PICC line has been inserted with its tip at the junction of the superior vena cava and right atrium. Mild interstitial opacities are present within the lungs. Small pleural effusions are suspected. The heart is mildly enlarged. IMPRESSION: PICC line with its tip at the junction of the superior vena cava and right atrium
[2017-09-27] MEDS: Meropenem 500 MG in NA CHLORIDE 0.9% 100 ML IV SCH ×2 (13:46→14:53)
[2017-09-27 15:48] VITALS: BP 176/62; TEMP 98.4
[2017-09-27] MEDS: ENOXAPARIN 30 MG/0.3 ML SQ SCH (17:12)
[2017-09-27 18:02] VITALS: O2SAT 91
--- NOTE | 2017-09-27 20:21 | P.PN ---
Date of Service: 09/27/17 Vital Signs Temp Pulse Resp BP Pulse Ox 98.4 F 66 18 176/62 H 97 09/27/17 15:47 09/27/17 15:47 09/27/17 15:47 09/27/17 15:47 09/27/17 15:47 Assessment/ Plan: Nephrology. CPS stable without CP or SOB. No acute events overnight. Doing well. Vitals, medications, blood work and imaging reviewed in the chart. General: Obesity. NAD. HEENT: Atraumatic, Mucous membr. moist/pink Neck: Supple Respiratory: Clear to auscultation bilaterally Cardiovascular: Regular rate/rhythm, Edema Gastrointestinal: Soft and benign, Non-distended, No guarding Musculoskeletal: No clubbing, No contractures Integumentary: No rashes, No cyanosis Neurological: Abnormal speech Laboratory Data (last 24 hrs) 09/22/17 15:00: PT 11.8, INR 1.00, APTT 26.5 09/22/17 15:00: WBC 9.1 D, Hgb 8.9 L, Hct 28.8 L, Plt Count 212 09/22/17 15:00: B-Natriuretic Peptide 837 H 09/22/17 15:00: Sodium 139, Potassium 5.7 H*, BUN 75 H D, Creatinine 2.96 H D, Glucose 151 H, Magnesium 2.4 D, Total Bilirubin 0.5, AST 33, ALT 25, Alkaline Phosphatase 160 H Imagings Data: EXAM DESCRIPTION: [place] Single View09/22/2017 2:46 pm CLINICAL HISTORY: Chest pain COMPARISON: August 31, 2017 FINDINGS: The lungs appear clear of acute infiltrate. The heart is mildly enlarged. Postsurgical changes involve the chest. IMPRESSION: No acute abnormalities displayed Conclusions/Impression: A/ AUNG in the setting of hypotension/ bradycardia. Hyperkalemia DM II, controlled. Anemia in chronic illness. Iron Deficiency. Diastolic CHF, chronic. P. HTN with moderate TR. Hypocalcemia. Gout. Near-syncope complicated by hypotension/ bradycardia & gabapentin. Delirium. E.coli Cystitis. P/ Continue current POC and Medications. Follow up with attending for abx. No NSAIDs. AM labs. Daily weight. Case discussed with Dr. Olmedo. Plan for discharge to SNF.
--- NOTE | 2017-09-28 00:55 | DS ---
Date of Discharge: 09/27/2017 Admitting Diagnoses: 1.Acute dehydration. 2.Near syncopal episode. 3.Hyperkalemia. 4.Diabetes mellitus type 2 with hyperglycemia with long-term use of insulin. 5.Diabetes mellitus type 2 with anemia of chronic disease. 6.Coronary artery disease, status post coronary artery bypass graft. [place] artery and [place] heart without angina. 7.Mildly elevated troponin level. 8.Major depressive disorder. 9.Gastroesophageal reflux disease. 10.Gout. 11.Hyperlipidemia. 12.Essential hypertension. 13.Restless legs syndrome. Discharge Diagnoses: 1.Acute dehydration, improved. 2.Acute kidney injury, creatinine normalized. 3.Hyperkalemia, corrected. 4.Near syncopal episode, likely related to medication effect. 5.Anemia of chronic disease. H and H stable. 6.Diabetes mellitus type 2 with hyperglycemia with long-term use of insulin. 7.Elevated troponin level. 8.Major depressive disorder. SSRI. 9.Gastroesophageal reflux disease without esophagitis. 10.Gout. 11.Mixed hyperlipidemia. 12.Essential hypertension. 13.Restless legs syndrome. 14.Hypoxia, resolved. 15.Acute cystitis with hematuria secondary to Escherichia coli with multi-drug resistant strain. Hospital Course: The patient is an 87-year-old female who comes in with near syncopal episode. The patient was recently started on a high dose of gabapentin 600 mg 2 pills at bedtime. The patient had a near syncopal episode, was caught by her son, did not have a fall but did hit part of her face aga inst a wall. No loss of consciousness. The patient was found to be dehydrated. She was started on IV fluids. Her gabapentin was held. The patient did improve initially. She also had some electroly te abnormalities including hypokalemia which was corrected. She did have some elevated creatinine, w hich improved significantly with IV fluid hydration. Nephrology was also consulted. Overall, the pa cresencio did well. She was found to have a UTI and has a history of multi-drug resistant and ESBL produ cing strains. Urine culture showed E. coli, which was sensitive to meropenem. IV antibiotics were a djusted. The patient did require a PICC line for long-term IV antibiotics with meropenem. The patie nt was then debilitated and not able to get up and move around on her own. Physical therapy evaluati on was completed, and the patient was recommended to go to a long term facility for round the c lock rehab. The patient was then referred to [facility]. The patient overall did well. Her sy mptoms improved. Her condition improved, and she was then cleared for discharge from [facility]. The patient was then discharged home in a stable condition. Activity: Fall precautions as per rehab. Followup: Follow up with PCP in 1 week. Follow up with glassware maker demonstrator, Dr. Covarrubias, in 2 weeks. Retu rn to ER for worsening condition. Discharge Medications: As per medication reconciliation list. Time Spent: Total time spent discharging the patient was 37 minutes. Discharge Physical Examination: General: Awake, alert, oriented, in no acute distress. Elderly fem marta, obese. CV: S1, S2. No murmurs. Peripheral pulses present. Respiratory: Moving air well bilaterally. Abdomen: Soft, nontender, nondistended. Positive bowel sounds. Extremities: No clubbing, cyanosis, or edema. Neurologic: Nonfocal. SA/MODL Voice ID: [id number] Report ID: [id number]
== END 2017-09-27 18:10 | DRG 683 ==
LOC: ER 14:09 → ERHOLD 15:52 → 4TH 17:04
PROVIDERS: ADMIT Family Medicine; ATTEND Family Medicine
PROC: 02HV33Z Insertion of Infusion Device into Superior Vena Cava, Percutaneous Approach (ICD-10-PCS; principal; 2017-09-27)
DX: N17.9 Acute kidney failure, unspecified (principal); I50.32 Chronic diastolic (congestive) heart failure; N30.01 Acute cystitis with hematuria; E87.5 Hyperkalemia; E86.0 Dehydration; I10 Essential (primary) hypertension; R55 Syncope and collapse; R00.1 Bradycardia, unspecified; E11.65 Type 2 diabetes mellitus with hyperglycemia; E78.2 Mixed hyperlipidemia; R41.0 Disorientation, unspecified; R09.02 Hypoxemia; B96.20 Unspecified Escherichia coli [E. coli] as the cause of diseases classified elsewhere; D63.8 Anemia in other chronic diseases classified elsewhere; E78.5 Hyperlipidemia, unspecified; I25.10 Atherosclerotic heart disease of native coronary artery without angina pectoris; K21.9 Gastro-esophageal reflux disease without esophagitis; G25.81 Restless legs syndrome; M10.9 Gout, unspecified; F32.9 Major depressive disorder, single episode, unspecified; Z95.1 Presence of aortocoronary bypass graft
CPT/HCPCS: 36415; 71045; 76770; 80048; 80053; 80076; 81001; 82962; 83735; 83880; 84100; 84132; 84484; 84550; 85025; 85610; 85730; 87077; 87086; 87088; 87186; 93005; 94760; 96365; 96375; 97163; 99285; J0610; J0696; J1650; J7030

== ENCOUNTER 2017-10-28 02:17 | Inpatient (IN) | payer OTHER ==
[2017-10-28] MEDS ORDERED: NITROGLYCERIN 1 GM PKT TD ONE (02:49)
[2017-10-28] MEDS ORDERED: FUROSEMIDE 20 MG/ 2ML VIAL ONE ×2 (02:49→04:14)
[2017-10-28] MEDS ORDERED: predniSONE 20 MG TAB ONE (02:50)
[2017-10-28] MEDS ORDERED: METOPROLOL TARTRATE 5 MG/5 ML INJ IV ONE ×2 (02:50→03:35)
[2017-10-28] MEDS ORDERED: Levofloxacin 750mg IV 750 MG/150 ML BAG IV ONE (02:51)
[2017-10-28 03:44] LABS: Absolute Lymphocytes (CBC) 1.3 K/uL (0.7-4.9); Absolute Monocytes 0.8 K/uL (0.1-1.3); Absolute Neutrophil 7.9 K/uL (1.8-8.0); Basophils % 0.4 % (0-1.3); Eosinophils % 0.6 % (0-4.4); Hematocrit 36.3 % (36.0-45.0); Lymphocytes % 13.1 % (15.3-44.8); MCH 26.4 pg (27.0-35.0); MCV 86.1 fL (80-100); MPV 9.3 fL (7.6-11.3); Monocytes % 8.3 % (3.3-12.3); RBC Red Blood Cell Count 4.21 M/uL (3.86-4.86)
[2017-10-28 03:45] LABS: Protime INR 1.08
[2017-10-28 03:50] LABS: Bicarbonate 27 mEq/L (21-31); Glucose Level 295 mg/dL (65-120); Potassium 3.3 mEq/L (3.6-5.0); Sodium Level 142 mEq/L (135-145)
[2017-10-28 03:56] LABS: ALT/SGPT 18 IU/L (10-60); AST/SGOT 30 IU/L (10-42); Albumin 3.1 g/dL (3.2-5.5); Alkaline Phosphatase 118 IU/L (42-121); BUN Blood Urea Nitrogen 9 mg/dL (6-20); Bilirubin Direct < 0.1 mg/dL (0-0.2); Bilirubin Total 0.6 mg/dL (0.3-1.2); CKMB Creatine Kinase MB 3.6 ng/ml (0.3-4.0); Creatine Phosphokinase 70 IU/L (22-269); Magnesium 1.5 mg/dL (1.8-2.5); Protein, Total 6.8 g/dL (6.0-8.3)
[2017-10-28] MEDS ORDERED: ASPIRIN 325 MG TAB ONE (04:25)
[2017-10-28] MEDS ORDERED: ENOXAPARIN 60 MG/0.6 ML SQ ONE (04:26)
--- NOTE | 2017-10-28 04:50 | EDPHYS ---
Physician Documentation [facility] Name: Lainey Johnson Age: 87 yrs Sex: Female : 1930 Arrival Date: 10/28/2017 Time: 02:19 Bed 18 Private MD: ED Physician Sisi Villa HPI: 10/28 03:00 This 87 yrs old Female presents to ER via EMS with complaints of Shortness Of ma2 Breath. 03:00 The patient has shortness of breath at rest. Onset: The symptoms/episode began/occurred ma2 gradually, 2 hour(s) ago. Duration: The symptoms are continuous. Associated signs and symptoms: Pertinent positives: chest pain. Severity of symptoms: At their worst the symptoms were severe. The patient has not experienced similar symptoms in the past. hx of CABG here with chest pain and SOB x 2 hours that is substernal constant, she states she has had chest pain in past. however never associated with sob like this one, no LE edema never needed O2 has hx of CHF but no swelling or edema . Historical: - Allergies: 02:59 CHLORINE; aa1 02:59 metformin; aa1 02:59 Morphine; aa1 02:59 Lyrica; aa1 02:59 Sulfa (Sulfonamide Antibiotics); aa1 02:59 Tetanus Vaccines \T\ Toxoid; aa1 - Home Meds: 02:59 calcitriol 0.5 mcg oral cap 1 cap once daily [Active]; Flagyl 500 mg Oral tab 1 tab 3 aa1 times per day [Active]; metoprolol tartrate 50 mg Oral tab 1 tab 2 times per day [Active]; acetaminophen 325 mg Oral tab 2 tabs every 6 hours [Active]; - PMHx: 02:59 Anemia; CAD; Depression; Diabetes - IDDM; GERD; Gout; High Cholesterol; Hypertension; aa1 Myocardial infarction; restless leg syndrome; c-diff; - PSHx: 02:59 Hysterectomy; liver bypass; Hernia repair; back surgery; leg surgery; Lumpectomy; aa1 throat expansion surgery; CABG; - Immunization history:: Pneumococcal vaccine is up to date, Flu vaccine is up to date. - Social history:: Smoking status: Patient/guardian denies using tobacco. - Family history:: not pertinent. ROS: 03:00 Constitutional: Negative for fever, chills, and weight loss. ma2 03:00 Cardiovascular: Positive for chest pain. 03:00 Respiratory: Positive for shortness of breath. 03:00 All other systems are negative. Exam: 03:00 Eyes: Pupils equal round and reactive to light, extra-ocular motions intact. Lids and ma2 lashes normal. Conjunctiva and sclera are non-icteric and not injected. Cornea within normal limits. Periorbital areas with no swelling, redness, or edema. ENT: Nares patent. No nasal discharge, no septal abnormalities noted. Tympanic membranes are normal and external auditory canals are clear. Oropharynx with no redness, swelling, or masses, exudates, or evidence of obstruction, uvula midline. Mucous membranes moist. Abdomen/GI: Soft, non-tender, with normal bowel sounds. No distension or tympany. No guarding or rebound. No evidence of tenderness throughout. Back: No spinal tenderness. No costovertebral tenderness. Full range of motion. Skin: Warm, dry with normal turgor. Normal color with no rashes, no lesions, and no evidence of cellulitis. MS/ Extremity: Pulses equal, no cyanosis. Neurovascular intact. Full, normal range of motion. Neuro: Awake and alert, GCS 15, oriented to person, place, time, and situation. Cranial nerves II-XII grossly intact. Motor strength 5/5 in all extremities. Sensory grossly intact. Cerebellar exam normal. Normal gait. Psych: Awake, alert, with orientation to person, place and time. Behavior, mood, and affect are within normal limits. 03:00 Constitutional: The patient appears alert, awake, in obvious distress, moderately distressed. 03:00 ENT: TM's: are normal. 03:00 Chest/axilla: Inspection: 03:00 Cardiovascular: Rate: tachycardic, Rhythm: irregularly irregular, Pulses: no pulse deficits are appreciated, Edema: is not appreciated, JVD: is not appreciated. 03:00 Respiratory: moderate respiratory distress is noted, Respirations: Breath sounds: rales, that are moderate, wheezing: Vital Signs: 02:20 BP 174 / 94; Pulse 93; Resp 26; Temp 98.4; Pulse Ox 97% on R/A; Weight 83.46 kg; Height aa1 5 ft. 4 in. (162.56 cm); Pain 6/10; 03:17 BP 149 / 88; Pulse 97; Resp 24; Pulse Ox 95% on 2 lpm NC; aa1 03:32 BP 148 / 93; Pulse 114; Resp 20; Pulse Ox 98% on 2 lpm NC; Pain 4/10; mg2 04:18 BP 137 / 73; Pulse 108; Resp 22; Pulse Ox 97% on 2 lpm NC; aa1 05:48 BP 140 / 84; Pulse 117; Resp 20; Pulse Ox 98% on 2 lpm NC; Pain 0/10; mg2 08:06 BP 158 / 77; Pulse 106; Resp 20; Pulse Ox 99% on 2 lpm NC; ae1 02:20 Body Mass Index 31.58 (83.46 kg, 162.56 cm) aa1 MDM: 02:35 Patient medically screened. ma2 03:00 Differential diagnosis: Anxiety Reaction CHF exacerbation, Myocardial Infarction ma2 pneumonia, pulmonary edema, reactive airway disease, Unstable Angina Likely CHF exacerbation and Afib w RVR, likely d/t stopping her spironolactone and Lasix by her doctor 2 weeks ago. 04:46 Antibiotic administration: Data reviewed: vital signs, nurses notes, lab test ma2 result(s), EKG, radiologic studies. Data interpreted: conveyor monitor: Pulse oximetry:. Counseling: I had a detailed discussion with the patient and/or guardian regarding: the historical points, exam findings, and any diagnostic results supporting the discharge/admit diagnosis, the presence of at least one elevated blood pressure reading (>120/80) during this emergency department visit, the need for further work-up and treatment in the hospital. Response to treatment: the patient's symptoms have markedly improved after treatment. ED course: discussed with dr. Sarkar, accepted for admission elevated trop, to 0.07, CHF exacerbation. 10/28 02:38 Order name: Basic Metabolic Panel 10/28 02:38 Order name: BNP 10/28 02:38 Order name: CBC with Diff 10/28 02:38 Order name: Ckmb 10/28 02:38 Order name: CPK 10/28 02:38 Order name: LFT's; Complete Time: 04:08 10/28 02:38 Order name: Magnesium; Complete Time: 04:08 10/28 02:38 Order name: PT-INR; Complete Time: 04:08 10/28 02:38 Order name: Ptt, Activated; Complete Time: 04:08 ma2 10/28 02:38 Order name: Troponin (emerg Dept Use Only); Complete Time: 04:08 ma2 10/28 02:38 Order name: Basic Metabolic Panel; Complete Time: 04:08 EDMS 10/28 02:38 Order name: BNP B-Type Natriuretic Peptide; Complete Time: 04:08 EDMS 10/28 02:39 Order name: CKMB Creatine Kinase MB; Complete Time: 04:08 EDMS 10/28 02:39 Order name: Creatine Phosphokinase; Complete Time: 04:08 EDMS 10/28 02:38 Order name: EKG; Complete Time: 02:39 ma2 10/28 02:38 Order name: Cardiac monitoring; Complete Time: 03:16 ma2 10/28 03:24 Order name: CXR XRAY ma2 10/28 03:49 Order name: Manual Differential EDMS 10/28 06:22 Order name: Urine Dipstick--Ancillary (enter results) 1 10/28 06:29 Order name: Urine Dipstick-Ancillary [facility] 10/28 02:38 Order name: EKG - Nurse/Tech; Complete Time: 02:45 ma2 10/28 02:38 Order name: IV Saline Lock; Complete Time: 03:16 ma2 10/28 02:38 Order name: Labs collected and sent; Complete Time: 03:16 ma2 10/28 02:38 Order name: O2 Per Protocol; Complete Time: 03:16 ma2 10/28 02:38 Order name: O2 Sat Monitoring; Complete Time: 03:16 ma2 10/28 02:38 Order name: Urine Dipstick-Ancillary (obtain specimen); Complete Time: 06:19 ma2 Administered Medications: 03:16 Not Given (received BOX TRUCK OWNER OPERATOR): DuoNeb (3:1) (2.5 mg - 0.5 mg) 3 ml Nebulizer once aa1 03:21 Drug: predniSONE 60 mg Route: PO; mg2 05:02 Follow up: Response: No adverse reaction; Wheezing diminished mg2 03:22 Drug: Nitroglycerin Ointment 2 % 1 inches Route: Transdermal; Site: affected area; mg2 03:22 Drug: Lasix 40 mg Route: IVP; Site: right hand; mg2 05:02 Follow up: Response: No adverse reaction; Other; patient urinated mg2 03:22 Drug: LevaQUIN 750 mg Volume: 150 ml; Route: IVPB; Infused Over: 90 mins; Site: right mg2 hand; 05:01 Follow up: Response: No adverse reaction; IV Status: Completed infusion mg2 03:30 Drug: Metoprolol 5 mg Route: IVP; Site: right hand; mg2 03:51 Drug: Metoprolol 5 mg Route: IVP; Site: right wrist; mg2 04:21 Drug: Metoprolol 5 mg Route: IVP; Site: right wrist; mg2 05:00 Follow up: Response: No adverse reaction; Other; heart rate mildly controlled mg2 04:22 Drug: Lasix 40 mg Route: IVP; Site: right wrist; mg2 04:59 Follow up: Response: No adverse reaction; Other; congestion relieved, patient urinated mg2 04:22 CANCELLED (Duplicate Order): Lasix 40 mg IVP once mg2 04:37 Drug: Aspirin 325 mg Route: PO; mg2 04:59 Follow up: Response: No adverse reaction mg2 04:37 Drug: Lovenox 60 mg Route: Sub-Q; Site: right lower abdomen; mg2 04:59 Follow up: Response: No adverse reaction mg2 Disposition: 10/28/17 04:49 Hospitalization ordered by Andrew Sarkar for Inpatient Admission. Preliminary diagnosis are Acute systolic (congestive) heart failure, Non-ST elevation (NSTEMI) myocardial infarction. - Bed requested for Telemetry/MedSurg (Inpatient). - Status is Inpatient Admission. ae1 - Condition is Stable. - Problem is new. - Symptoms have improved. UTI on Admission? No Signatures: Dispatcher [employer] EDMS Milagros Manuel RN RN kl Tania Gonzalez RN RN aa1 Brad Kwok RN RN ae1 Sisi Villa MD MD ma2 Ortega Garrett RN RN mg2 Corrections: (The following items were deleted from the chart) 04:22 04:22 Lasix 40 mg IVP once ordered. mg2 mg2 06:22 04:49 Hospitalization Ordered by Andrew Sarkar MD for Inpatient Admission. Preliminary kl diagnosis is Acute systolic (congestive) heart failure; Non-ST elevation (NSTEMI) myocardial infarction. Bed requested for Telemetry/MedSurg (Inpatient). Status is Inpatient Admission. Condition is Stable. Problem is new. Symptoms have improved. UTI on Admission? No. ma2 08:27 06:22 10/28/2017 04:49 Hospitalization Ordered by Andrew Sarkar MD for Inpatient ae1 Admission. Preliminary diagnosis is Acute systolic (congestive) heart failure; Non-ST elevation (NSTEMI) myocardial infarction. Bed requested for Telemetry/MedSurg (Inpatient). Status is Inpatient Admission. Condition is Stable. Problem is new. Symptoms have improved. UTI on Admission? No. kl
--- NOTE | 2017-10-28 04:50 | ER ---
Nurse's Notes [facility] Name: Lainey Johnson Age: 87 yrs Sex: Female : 1930 Arrival Date: 10/28/2017 Time: 02:19 Bed 18 Private MD: Diagnosis: Acute systolic (congestive) heart failure;Non-ST elevation (NSTEMI) myocardial infarction Presentation: 10/28 02:20 Presenting complaint: EMS states: pt woke up around 0100 c/o SOB. NH staff gave 1 A\T\A aa1 tx with no improvement. EMS reports giving additional A\T\A tx en route with some relief. Upon arrival to ED pt A\T\Ox4, NAD noted. C/O tightness in chest which began after breathing tx. Transition of care: patient was received from another setting of care ([facility]. Onset of symptoms was October 28, 2017 at 01:00. Initial Sepsis Screen: Does the patient meet any 2 criteria? No. Patient's initial sepsis screen is negative. Does the patient have a suspected source of infection? No. Patient's initial sepsis screen is negative. Care prior to arrival: Medication(s) given: Albuterol Neb x 1, Atrovent Neb x 1, Oxygen administered. via nasal cannula. 02:20 Method Of Arrival: EMS: [facility] aa1 02:20 Acuity: BRIANA 3 aa1 Historical: - Allergies: 02:59 CHLORINE; aa1 02:59 metformin; aa1 02:59 Morphine; aa1 02:59 Lyrica; aa1 02:59 Sulfa (Sulfonamide Antibiotics); aa1 02:59 Tetanus Vaccines \T\ Toxoid; aa1 - Home Meds: 02:59 calcitriol 0.5 mcg oral cap 1 cap once daily [Active]; Flagyl 500 mg Oral tab 1 tab 3 aa1 times per day [Active]; metoprolol tartrate 50 mg Oral tab 1 tab 2 times per day [Active]; acetaminophen 325 mg Oral tab 2 tabs every 6 hours [Active]; - PMHx: 02:59 Anemia; CAD; Depression; Diabetes - IDDM; GERD; Gout; High Cholesterol; Hypertension; aa1 Myocardial infarction; restless leg syndrome; c-diff; - PSHx: 02:59 Hysterectomy; liver bypass; Hernia repair; back surgery; leg surgery; Lumpectomy; aa1 throat expansion surgery; CABG; - Immunization history:: Pneumococcal vaccine is up to date, Flu vaccine is up to date. - Social history:: Smoking status: Patient/guardian denies using tobacco. - Family history:: not pertinent. Screenin:25 Abuse screen: Denies threats or abuse. Denies injuries from another. Nutritional aa1 screening: No deficits noted. Tuberculosis screening: No symptoms or risk factors identified. Fall Risk None identified. Assessment: 02:25 General: Appears in no apparent distress. comfortable, Behavior is calm, cooperative, aa1 appropriate for age. Pain: Complains of pain in chest Pain currently is 6 out of 10 on a pain scale. Quality of pain is described as tightness Pain began 1 hour ago. Is continuous. Neuro: Level of Consciousness is awake, alert, obeys commands, Oriented to person, place, time, situation, Moves all extremities. Speech is normal. Cardiovascular: Reports chest pain, shortness of breath, Heart tones S1 S2 present Capillary refill < 3 seconds Clubbing of nail beds is absent JVD is absent Patient's skin is warm and dry. Rhythm is irregular. Respiratory: Reports shortness of breath at rest Airway is patent Respiratory effort is even, unlabored, Respiratory pattern is tachypnea Breath sounds with crackles bilaterally. the patient has moderate shortness of breath. GI: No signs and/or symptoms were reported involving the gastrointestinal system. : No signs and/or symptoms were reported regarding the genitourinary system. EENT: No signs and/or symptoms were reported regarding the EENT system. Derm: Skin is intact, is healthy with good turgor, Skin is pink, warm \T\ dry. Musculoskeletal: Circulation, motion, and sensation intact. Capillary refill < 3 seconds. 03:17 Reassessment: Patient appears in no apparent distress at this time. Patient and/or aa1 family updated on plan of care and expected duration. Pain level reassessed. Patient is alert, oriented x 3, equal unlabored respirations, skin warm/dry/pink. Awaiting lab results. 04:12 Reassessment: Patient appears in no apparent distress at this time. Patient and/or aa1 family updated on plan of care and expected duration. Pain level reassessed. Patient is alert, oriented x 3, equal unlabored respirations, skin warm/dry/pink. Awaiting lab results. Family at bedside. 05:15 Reassessment: Patient appears in no apparent distress at this time. Patient and/or aa1 family updated on plan of care and expected duration. Pain level reassessed. Patient is alert, oriented x 3, equal unlabored respirations, skin warm/dry/pink. Awaiting admission orders. 06:13 Reassessment: Patient appears in no apparent distress at this time. Patient and/or aa1 family updated on plan of care and expected duration. Pain level reassessed. Patient is alert, oriented x 3, equal unlabored respirations, skin warm/dry/pink. Awaiting bed assignment. 07:48 Reassessment: Called 2nd floor to give report, windows desktop engineer states receiving nurse will ae1 return call. 08:05 Reassessment: Report called to Vandana receiving nurse, via telephone. registration ae1 notified report has been called. Vital Signs: 02:20 BP 174 / 94; Pulse 93; Resp 26; Temp 98.4; Pulse Ox 97% on R/A; Weight 83.46 kg; Height aa1 5 ft. 4 in. (162.56 cm); Pain 6/10; 03:17 BP 149 / 88; Pulse 97; Resp 24; Pulse Ox 95% on 2 lpm NC; aa1 03:32 BP 148 / 93; Pulse 114; Resp 20; Pulse Ox 98% on 2 lpm NC; Pain 4/10; mg2 04:18 BP 137 / 73; Pulse 108; Resp 22; Pulse Ox 97% on 2 lpm NC; aa1 05:48 BP 140 / 84; Pulse 117; Resp 20; Pulse Ox 98% on 2 lpm NC; Pain 0/10; mg2 08:06 BP 158 / 77; Pulse 106; Resp 20; Pulse Ox 99% on 2 lpm NC; ae1 02:20 Body Mass Index 31.58 (83.46 kg, 162.56 cm) aa1 ED Course: 02:19 Patient arrived in ED. aa1 02:20 Arm band placed on right wrist. Patient placed in an exam room, on a stretcher, on aa1 oxygen. 02:25 Patient has correct armband on for positive identification. Placed in gown. Bed in low aa1 position. Call light in reach. athletic monitor on. Pulse ox on. NIBP on. Warm blanket given. 02:25 EKG done, by ED staff, reviewed by Sisi Villa MD. Oxygen administration via nasal aa1 cannula \T\ 2L/min O2 via Pt placed on O2 for comfort; RA O2 sat prior to O2 97%. 02:27 Triage completed. aa1 02:35 Sisi Villa MD is Attending Physician. ma2 02:46 Tania Gonzalez RN is Primary Nurse. aa1 03:23 Inserted saline lock: 22 gauge wrist, using aseptic technique. mg2 03:40 X-ray completed. Portable x-ray completed in exam room. Patient tolerated procedure kw well. 03:41 CXR XRAY In Process Unspecified. EDMS 04:47 Sisi Villa MD is Hospitalizing Provider. ma2 04:48 Hospitalizing Provider role handed off by Sisi Villa MD ma2 04:48 Andrew Sarkar MD is Hospitalizing Provider. ma2 04:58 Martinez cath inserted, using sterile technique, 18 Fr., by wy, balloon inflated, to mg2 gravity drainage. 05:06 No provider procedures requiring assistance completed. mg2 07:03 Report given to Dayna Kwok RN. aa1 07:04 Patient admitted, IV remains in place. aa1 Administered Medications: 03:16 Not Given (received TRAILER TRUCK DRIVER): DuoNeb (3:1) (2.5 mg - 0.5 mg) 3 ml Nebulizer once aa1 03:21 Drug: predniSONE 60 mg Route: PO; mg2 05:02 Follow up: Response: No adverse reaction; Wheezing diminished mg2 03:22 Drug: Nitroglycerin Ointment 2 % 1 inches Route: Transdermal; Site: affected area; mg2 03:22 Drug: Lasix 40 mg Route: IVP; Site: right hand; mg2 05:02 Follow up: Response: No adverse reaction; Other; patient urinated mg2 03:22 Drug: LevaQUIN 750 mg Volume: 150 ml; Route: IVPB; Infused Over: 90 mins; Site: right mg2 hand; 05:01 Follow up: Response: No adverse reaction; IV Status: Completed infusion mg2 03:30 Drug: Metoprolol 5 mg Route: IVP; Site: right hand; mg2 03:51 Drug: Metoprolol 5 mg Route: IVP; Site: right wrist; mg2 04:21 Drug: Metoprolol 5 mg Route: IVP; Site: right wrist; mg2 05:00 Follow up: Response: No adverse reaction; Other; heart rate mildly controlled mg2 04:22 Drug: Lasix 40 mg Route: IVP; Site: right wrist; mg2 04:59 Follow up: Response: No adverse reaction; Other; congestion relieved, patient urinated mg2 04:22 CANCELLED (Duplicate Order): Lasix 40 mg IVP once mg2 04:37 Drug: Aspirin 325 mg Route: PO; mg2 04:59 Follow up: Response: No adverse reaction mg2 04:37 Drug: Lovenox 60 mg Route: Sub-Q; Site: right lower abdomen; mg2 04:59 Follow up: Response: No adverse reaction mg2 Intake: Outcome: 04:49 Decision to Hospitalize by Provider. ma2 08:26 Admitted to Med/surg accompanied by tech, family with patient, via stretcher, room 222, ae1 with oxygen, with chart, Report called to Vandana, receiving nurse. 08:26 Condition: stable 08:26 Instructed on the need for admit, Demonstrated understanding of instructions. 08:27 Patient left the ED. ae1 Signatures: Dispatcher [employer] EDMS Tania Gonzalez RN RN aa1 Iwona Redd Andrea, RN RN ae1 Sisi Villa MD MD ma2 Ortega Garrett RN RN mg2 Corrections: (The following items were deleted from the chart) 05:05 03:23 Inserted saline lock: 22 gauge 24 gauge wrist, using aseptic technique. mg2 mg2
--- NOTE | 2017-10-28 05:05 | P.HP ---
Certification for Inpatient Patient admitted to: Inpatient With expected LOS: >2 Midnights Practitioner: I am a practitioner with admitting privileges, knowledge of patient current condition, hospital course, and medical plan of care. Services: Services provided to patient in accordance with Admission requirements found in Title 42 Section 412.3 of the Code of Federal Regulations Patient History Date of Service: 10/28/17 Reason for admission: pulmonary edema History of Present Illness: Ms Johnson is an 87 years old woman with multiple medical problems, including moderate pulmonary hypertension, DM II, HTN, CAD s/p CABG who started last night complaining of chest tightness associated with SOB. The chest tightness last for 2 hours, substernal, 4-5/10 of intensity. She denied nausea or vomiting, no diaphoresis. In ER the patient was found on A.Fib, no previous history on our records, HR about 120's, BP 174/94, O2 sat 94% or RA. EKG afib 140's without ST abnormalities. She was recently diagnosed with C.Diff and is on ongoing treatment with Flagyl PO. No history of cough or fever. Allergies Sulfa (Sulfonamide Antibiotics) Allergy (Mild, Verified 08/29/17 21:12) Itching/Hives/Rash metformin Allergy (Verified 08/29/17 21:12) Itching/Hives/Rash morphine Allergy (Verified 08/29/17 21:12) Rash pregabalin [From Lyrica] Allergy (Verified 08/29/17 21:12) Rash Tetanus Vaccines and Toxoid Allergy (Verified 08/29/17 21:12) Itching/Hives/Rash CHLORINE Allergy (Severe, Uncoded 08/29/17 21:12) Anaphylaxis Home Medications: Allopurinol [Zyloprim*] 100 mg PO DAILY 10/03/16 Atorvastatin Calcium [Lipitor*] 10 mg PO BEDTIME 10/03/16 Furosemide [Lasix*] 40 mg PO DAILY 10/03/16 Insulin -Regular Human [Novolin -R*] 0 unit SQ SEECOM 10/03/16 Insulin Detemir [Levemir*] 18 unit SQ BEDTIME 10/03/16 Insulin Detemir [Levemir*] 25 unit SQ DAILY 10/03/16 Ropinirole HCl [Requip*] 2 mg PO BID 10/03/16 Acetaminophen with Codeine [Acetaminophen-Cod #3 Tablet] 1 tab PO Q6H 08/29/17 Aspirin 81 mg PO DAILY 08/29/17 Clopidogrel Bisulfate [Plavix*] 75 mg PO DAILY 08/29/17 Duloxetine HCl 40 mg PO DAILY 08/29/17 Losartan Potassium 100 mg PO DAILY 08/29/17 Meclizine HCl [Antivert*] 12.5 mg PO TID PRN 08/29/17 Metoprolol Succinate [Toprol Xl] 100 mg PO DAILY 08/29/17 Omeprazole [Prilosec] 40 mg PO DAILY 08/29/17 Tamsulosin [Flomax*] 0.4 mg PO DAILY #30 cap 09/03/17 Mirtazapine [Remeron*] 15 mg PO BEDTIME 09/22/17 Nitrofurantoin Monohyd/M-Cryst [Nitrofurantoin Rock-Mcr 100 mg] 1 tab PO Q12H Sitagliptin Phosphate [Januvia*] 50 mg PO DAILY 09/22/17 Tramadol HCl [Ultram] 1 tab PO Q8H 09/22/17 Cranberry Fruit Extract 200 mg PO TID cap 09/27/17 Gabapentin [Gralise] 300 mg PO TID #90 tab.er.24h 09/27/17 Meropenem [Merrem 500 MG/100 ML NS IVPB] 500 mg IV Q8HR #1 bag 09/27/17 - Past Medical/Surgical History Diabetic: Yes -: Anemia -: CAD -: Depression -: IDDM -: GERD -: Gout -: HLD -: HTN -: MS -: Restless leg syndrome -: Hysterectomy -: Hernia repair -: CABG -: Cardiac stents -: Right leg sx -: Appendectomy -: Cholecystectomy - Family History Mother -: Heart disease Father -: Heart disease Brother -: Heart disease Sister -: Heart disease - Social History Alcohol use: No CD- Drugs: No Caffeine use: Yes Place of Residence: Residential Review of Systems 10-point ROS is otherwise unremarkable Physical Examination - Physical Exam General: Alert, In no apparent distress HEENT: Atraumatic, PERRLA, Mucous membr. moist/pink, EOMI, Sclerae nonicteric Neck: Supple, 2+ carotid pulse no bruit, No LAD, Without JVD or thyroid abnormality Respiratory: Normal air movement, Crackles/rales (bibasilar rales) Cardiovascular: Normal S1 S2, Irregular heart rate/rhythm Gastrointestinal: Normal bowel sounds, No tenderness Musculoskeletal: No tenderness Integumentary: No rashes Neurological: Normal speech, Normal strength at 5/5 x4 extr, Normal tone, Normal affect Lymphatics: No axilla or inguinal lymphadenopathy - Studies Laboratory Data (last 24 hrs) 10/28/17 03:11: PT 12.8 H, INR 1.08, APTT 26.1 10/28/17 03:11: WBC 10.2, Hgb 11.1 L, Hct 36.3, Plt Count 174 10/28/17 03:11: B-Natriuretic Peptide 3008 H 10/28/17 03:11: Sodium 142, Potassium 3.3 L, BUN 9, Creatinine 0.88, Glucose 295 H, Magnesium 1.5 L D, Total Bilirubin 0.6, AST 30, ALT 18, Alkaline Phosphatase 118 Assessment and Plan - Problems (Diagnosis) (1) Pulmonary edema Current Visit: Yes Status: Acute (2) C. difficile diarrhea Current Visit: Yes Status: Acute (3) Elevated troponin Onset Date: 09/27/17 Current Visit: No Status: Acute (4) Coronary artery disease Onset Date: 09/27/17 Current Visit: No Status: Chronic Qualifiers: Coronary Disease-Associated Artery/Lesion type: [place] artery [place] vs. transplanted heart: [place] heart Associated angina: without angina Qualified Code(s): I25.10 - Atherosclerotic heart disease of [place] coronary artery without angina pectoris (5) Diabetes Current Visit: No Status: Chronic Qualifiers: Diabetes mellitus type: type 2 Diabetes mellitus intermodal customer service insulin use: without [facility]ent[facility] use Diabetes mellitus complication status: without complication Qualified Code(s): E11.9 - Type 2 diabetes mellitus without complications (6) Atrial fibrillation with RVR Current Visit: Yes Status: Acute - Plan The patient will be admitted to the hospital due to pulmonary edema. She has also new onset of atrial fibrillation with RVR. Her rate is better after receive treatement with Lasix, Metoprolol and Nitro paste. Trop I is elevated 0.07, she has been coplaining of typical chest pain. Will order serial cardiac enzymes, consult cardiology, continue diuretic and nitro paste treatment. - Advance Directives Does patient have a Living Will: No Does patient have a Durable POA for Healthcare: No - Code Status/Comfort Care Code Status Assessed: Yes Code Status: Do Not Intubate
[2017-10-28 05:30] LABS: Anisocytosis 1+; Blood Morphology Comment NOTED (NOT SEEN); Platelet Estimate ADEQ
[2017-10-28 06:29] LABS: Urine Blood NEGATIVE (NEG); Urine Glucose 1+ (NEG); Urine Protein NEGATIVE (NEG); Urine pH 5.5 (5.0-7.0)
--- NOTE | 2017-10-28 06:54 | EKG ---
Test Date: 2017-10-28 Test Time: 02:22:13 Joint Setter: MEASUREMENT RESULTS: Intervals: Rate: 127 [place]: QRSD: 80 QT: 272 QTc: 395 [place]: P: [place]: QRS: 46 T: -57 INTERPRETIVE STATEMENTS: Atrial fibrillation with rapid ventricular response Nonspecific T wave abnormality, probably digitalis effect Abnormal ECG Compared to ECG 09/22/2017 14:20:24 Sinus bradycardia no longer present Atrial premature complex(es) no longer present Possible ischemia no longer present Prolonged QT interval no longer present T-wave abnormality still present Electronically Signed On 10-28-17 06:53:32 CDT by Ray See
--- NOTE | 2017-10-28 08:31 | RAD REPORT ---
EXAM DESCRIPTION: [place] Single View10/28/2017 3:41 am CLINICAL HISTORY: Shortness of breath COMPARISON: September 2017 FINDINGS: Moderate bilateral pulmonary opacities are present. The heart is mildly to moderately enl arged. Postsurgical changes involve the chest. IMPRESSION: Bilateral pulmonary opacities probably represent pulmonary edema. Pneumonia could also h ave this appearance
[2017-10-28] MEDS ORDERED: D50W 25 GM/50 ML SYRINGE IV PRN (08:42)
[2017-10-28] MEDS ORDERED: ONDANSETRON 4 MG/2 ML VIAL IV PRN (08:42)
[2017-10-28] MEDS ORDERED: ACETAMINOPHEN 500 MG TAB PO PRN (08:42)
[2017-10-28] MEDS ORDERED: GLUCAGON 1 MG/VIAL IM PRN (08:42)
[2017-10-28] MEDS ORDERED: ASPIRIN 81 MG CHEWABLE TABLET PO SCH (09:00)
[2017-10-28] MEDS: INSULIN -REGULAR HUMAN 50 UNIT/0.5 ML ML SQ SCH ×4 (09:05→21:43)
[2017-10-28] MEDS: NITROGLYCERIN 1 GM PKT TD SCH ×3 (09:06→17:02)
[2017-10-28] MEDS: metroNIDAZOLE 500 MG TABLET PO SCH ×3 (09:07→21:45)
[2017-10-28] MEDS: FUROSEMIDE 40 MG/4 ML VIAL IV SCH ×2 (09:08→17:01)
--- NOTE | 2017-10-28 11:06 | EKG ---
Test Date: 2017-10-28 Test Time: 02:23:28 Master Merchandiser: MEASUREMENT RESULTS: Intervals: Rate: 137 [place]: QRSD: 80 QT: 262 QTc: 395 [place]: P: [place]: QRS: 49 T: -57 INTERPRETIVE STATEMENTS: Atrial fibrillation with rapid ventricular response Nonspecific T wave abnormality, probably digitalis effect Abnormal ECG Compared to ECG 10/28/2017 02:22:53 no significant change from previous ECG Electronically Signed On 10-28-17 11:05:48 CDT by Damion Ramsey
--- NOTE | 2017-10-28 11:07 | EKG ---
Test Date: 2017-10-28 Test Time: 02:22:53 Ict Customer Support Officer: MEASUREMENT RESULTS: Intervals: Rate: 137 [place]: QRSD: 78 QT: 260 QTc: 392 [place]: P: [place]: QRS: 51 T: 266 INTERPRETIVE STATEMENTS: Atrial fibrillation with rapid ventricular response T wave abnormality, consider inferior ischemia or digitalis effect Abnormal ECG Compared to ECG 10/28/2017 02:22:13 ventricular response rate has increased Electronically Signed On 10-28-17 11:06:56 CDT by Damion Ramsey
[2017-10-28] MEDS ORDERED: MECLIZINE HCL 12.5 MG TAB PO PRN (11:35)
[2017-10-28] MEDS ORDERED: TRAMADOL HCL 50 MG TAB PO PRN (12:00)
[2017-10-28] MEDS: GABAPENTIN 300 MG CAP PO SCH ×2 (13:21→21:44)
[2017-10-28] MEDS ORDERED: Magnesium Sulfate 2gm IVPB 2 G/50 ML BAG IV ONE (13:28)
[2017-10-28] MEDS ORDERED: NA CHLORIDE 0.9% 0 ML ONE (13:39)
[2017-10-28 13:41] LABS: Urine Appearance CLEAR; Urine Bilirubin NEGATIVE (NEG); Urine Blood 1+ (NEG); Urine Color YELLOW; Urine Glucose 2+ (NEG); Urine Protein NEGATIVE (NEG); Urine Urobilinogen 0.2 mg/dL (0.2-1.0); Urine pH 5.5 (5.0-7.0)
[2017-10-28] MEDS ORDERED: NA CHLORIDE 0.9% 250 ML ONE (13:41)
[2017-10-28] MEDS: KCL 20 MEQ/100 mL IVPB 20 MEQ/100 ML BAG IV SCH ×2 (13:45→15:43)
[2017-10-28 13:57] LABS: Urine Bacteria NONE SEEN /HPF (<20); Urine Culture Reflex Order NOT NEEDED; Urine Microscopic Reflex ORDER UMIC; Urine RBC <5 /HPF (NONE SEEN)
[2017-10-28] MEDS ORDERED: ENOXAPARIN 80 MG/0.8 ML SQ SCH (18:00)
[2017-10-28] MEDS: ROPINIROLE HCL 1 MG TAB PO SCH (21:44)
[2017-10-28] MEDS: ATORVASTATIN 10 MG TAB PO SCH (21:44)
[2017-10-28] MEDS: MIRTAZAPINE 15 MG TAB PO SCH (21:44)
[2017-10-28 22:50] LABS: Magnesium 1.6 mg/dL (1.8-2.5)
[2017-10-29] MEDS: NITROGLYCERIN 1 GM PKT TD SCH ×4 (01:54→17:45)
[2017-10-29] MEDS ORDERED: MAGNESIUM SULFATE 1 gm IVPB 1 GM/100 ML BAG IV ONE ×2 (03:39→21:00)
[2017-10-29] MEDS ORDERED: NA CHLORIDE 0.9% 250 ML ONE (04:35)
[2017-10-29 06:15] VITALS: BMI 30.4
[2017-10-29 06:27] LABS: Potassium 3.7 mEq/L (3.6-5.0)
[2017-10-29 06:34] LABS: Absolute Monocytes 0.7 K/uL (0.1-1.3); Absolute Neutrophil 7.1 K/uL (1.8-8.0); Basophils % 0.2 % (0-1.3); Eosinophils % 0.1 % (0-4.4); Hematocrit 41.9 % (36.0-45.0); Lymphocytes % 11.5 % (15.3-44.8); MCH 25.8 pg (27.0-35.0); MCV 85.4 fL (80-100); MPV 10.2 fL (7.6-11.3); Monocytes % 7.8 % (3.3-12.3); RBC Red Blood Cell Count 4.91 M/uL (3.86-4.86)
[2017-10-29] MEDS ORDERED: POTASSIUM 25 MEQ EFFERV TAB PO ONE ×2 (06:35→21:00)
[2017-10-29] MEDS: INSULIN -REGULAR HUMAN 50 UNIT/0.5 ML ML SQ SCH ×4 (08:38→21:22)
[2017-10-29] MEDS: ROPINIROLE HCL 1 MG TAB PO SCH ×2 (08:40→21:22)
[2017-10-29] MEDS: DULOXETINE 20 MG CAP PO SCH (08:40)
[2017-10-29] MEDS: ASPIRIN 81 MG CHEWABLE TABLET PO SCH (08:41)
[2017-10-29] MEDS: GABAPENTIN 300 MG CAP PO SCH ×3 (08:41→21:23)
[2017-10-29] MEDS: METOPROLOL XL 100 MG TAB PO SCH (08:42)
[2017-10-29] MEDS: LOSARTAN POTASSIUM 50 MG TABLET PO SCH (08:42)
[2017-10-29] MEDS: CLOPIDOGREL 75 MG TABLET PO SCH (08:42)
[2017-10-29] MEDS: ALLOPURINOL 100 MG TAB PO SCH (08:42)
[2017-10-29] MEDS: metroNIDAZOLE 500 MG TABLET PO SCH (08:43)
[2017-10-29] MEDS: FUROSEMIDE 40 MG/4 ML VIAL IV SCH ×2 (08:43→16:24)
[2017-10-29] MEDS: TAMSULOSIN 0.4 MG SR CAP PO SCH (08:43)
[2017-10-29] MEDS ORDERED: VANCOMYCIN ORAL SOLN 250 MG/5 ML OSYR PO SCH (13:00)
--- NOTE | 2017-10-29 17:03 | P.PN ---
Subjective Date of Service: 10/29/17 Chief Complaint: pulmonary edema Patient seen and examined at bedside with RN. Case discussed with cardiology. Currently patient is doing well no complaints to offer. States that her shortness of breath is much better than before Review of Systems General: As per HPI Physical Examination - Vital Signs Temperature: 97.1 F Blood Pressure: 124/71 Pulse: 130 Respirations: 16 Pulse Ox (%): 97 - Physical Exam General: Alert, In no apparent distress, Oriented x3 HEENT: Atraumatic, PERRLA, EOMI Neck: Supple, JVD not distended Respiratory: Normal air movement, Crackles/rales Cardiovascular: Regular rate/rhythm, Normal S1 S2 Gastrointestinal: Normal bowel sounds, No tenderness Musculoskeletal: No tenderness Integumentary: No rashes Neurological: Normal speech, Normal tone, Normal affect Lymphatics: No axilla or inguinal lymphadenopathy - Studies Medications List Reviewed: Yes Assessment & Plan - Problems (Diagnosis) (1) Atrial fibrillation with RVR Onset Date: 10/28/17 Current Visit: Yes Status: Acute Plan: Now Rate controlled. -On Metoprolol and ASA for now -Cardiology Consulted. Awaiting Reccs (2) Pulmonary edema Onset Date: 10/28/17 Current Visit: Yes Status: Acute Plan: Acute Pulmonary Edema on Xray. -Lasix BID, now changed to Daily -Improved markedly -Echo in February 07 was WNL Qualifiers: Chronicity: acute Qualified Code(s): J81.0 - Acute pulmonary edema (3) Coronary artery disease Onset Date: 09/27/17 Current Visit: Yes Status: Chronic Qualifiers: Coronary Disease-Associated Artery/Lesion type: [place] artery [place] vs. transplanted heart: [place] heart Associated angina: without angina Qualified Code(s): I25.10 - Atherosclerotic heart disease of [place] coronary artery without angina pectoris (4) Diabetes Onset Date: 10/28/17 Current Visit: Yes Status: Chronic Qualifiers: Diabetes mellitus type: type 2 Diabetes mellitus exterminator insulin use: without [place] [facility] use Diabetes mellitus complication status: without complication Qualified Code(s): E11.9 - Type 2 diabetes mellitus without complications (5) Gastro-esophageal reflux disease without esophagitis Onset Date: 09/27/17 Current Visit: No Status: Chronic (6) Gout Onset Date: 09/27/17 Current Visit: No Status: Chronic Qualifiers: Gout site: unspecified site Gout etiology: unspecified cause Chronicity: unspecified Qualified Code(s): M10.9 - Gout, unspecified (7) Hyperlipidemia Onset Date: 09/27/17 Current Visit: No Status: Chronic Qualifiers: Hyperlipidemia type: mixed hyperlipidemia Qualified Code(s): E78.2 - Mixed hyperlipidemia (8) Type 2 diabetes mellitus without complications Onset Date: 09/27/17 Current Visit: No Status: Chronic Qualifiers: Diabetes mellitus exterminator insulin use: without [place] [facility] use Qualified Code(s): E11.9 - Type 2 diabetes mellitus without complications (9) HTN (hypertension) Onset Date: 02/21/17 Current Visit: No Status: Chronic Qualifiers: Hypertension type: essential hypertension Discharge Plan: Long Term Plan to discharge in: 24 Hours - Code Status/Comfort Care Code Status Assessed: Yes Critical Care: No
[2017-10-29 17:47] LABS: Magnesium 1.7 mg/dL (1.8-2.5); Potassium 3.2 mEq/L (3.6-5.0)
[2017-10-29] MEDS: MIRTAZAPINE 15 MG TAB PO SCH (21:23)
[2017-10-29] MEDS: ATORVASTATIN 10 MG TAB PO SCH (21:23)
[2017-10-30] MEDS: NITROGLYCERIN 1 GM PKT TD SCH ×2 (01:02→14:23)
[2017-10-30 06:29] LABS: Magnesium 1.8 mg/dL (1.8-2.5); Potassium 3.9 mEq/L (3.6-5.0)
[2017-10-30] MEDS ORDERED: MAGNESIUM SULFATE 1 gm IVPB 1 GM/100 ML BAG IV ONE (07:00)
[2017-10-30] MEDS ORDERED: POTASSIUM 25 MEQ EFFERV TAB PO ONE (07:00)
[2017-10-30 08:23] VITALS: O2SAT 95
[2017-10-30] MEDS: INSULIN -REGULAR HUMAN 50 UNIT/0.5 ML ML SQ SCH ×2 (08:39→12:46)
[2017-10-30] MEDS: LOSARTAN POTASSIUM 50 MG TABLET PO SCH (08:39)
[2017-10-30] MEDS: DULOXETINE 20 MG CAP PO SCH (08:39)
[2017-10-30] MEDS: METOPROLOL XL 100 MG TAB PO SCH (08:39)
[2017-10-30] MEDS: GABAPENTIN 300 MG CAP PO SCH ×2 (08:39→14:23)
[2017-10-30] MEDS: ALLOPURINOL 100 MG TAB PO SCH (08:40)
[2017-10-30] MEDS: TAMSULOSIN 0.4 MG SR CAP PO SCH (08:40)
[2017-10-30] MEDS: ASPIRIN 81 MG CHEWABLE TABLET PO SCH (08:40)
[2017-10-30] MEDS: CLOPIDOGREL 75 MG TABLET PO SCH (08:40)
[2017-10-30] MEDS: ROPINIROLE HCL 1 MG TAB PO SCH (08:40)
[2017-10-30] MEDS ORDERED: FUROSEMIDE 40 MG/4 ML VIAL IV SCH (09:00)
--- NOTE | 2017-10-30 12:07 | CON ---
Date of Consultation: 10/29/[address] Jalloh's service on 10/28/2017. I saw the patient on 10/29/2017. Reason For Consultation: Congestive heart failure. History Of Present Illness: The patient is an 87-year-old white woman. She has known congestive hea rt failure that is chronic, diastolic. She has a history of coronary artery disease, depression, parveen betes, gout, hypertension, and dyslipidemia. She came in with PND, pedal edema, and shortness of conner ath that has been treated already on IV Lasix. Denied chest pain. Denied nausea, vomiting, diaphore sis. Denied any palpitation or syncope. Past Medical History: As stated above. Allergies: GLUCOPHAGE, MORPHINE, AND SULFA. Medications: At home include losartan, metoprolol, aspirin, Plavix, Lipitor, Lasix, and insulin, Review of Systems: Negative. Social History: Negative. Family History: Negative. Physical Examination: General: She appears to be very pleasant and feeling much better, wanting to go home. Vital Signs: Her vital signs are stable, afebrile HEENT: Negative. Neck: Supple. No bruit or JVD. Chest: Clear on the right. She has some rales at the left base. Cardiac: Revealed a regular rhythm and rate with S4 gallops. Abdomen: Benign. Extremities: Revealed no clubbing, cyanosis. She had 1+ edema. Diagnostic Data: Chest x-ray showed mild failure. Glucose 308, creatinine 1.1. BNP is 3008, tropon in 0.07. EKG is nonspecific. Impression And Plan: 1.Acute exacerbation of chronic diastolic congestive heart failure. 2.Diabetes. 3.Elevated BNP and troponin secondary to congestive heart failure. 4.Coronary artery disease, on aspirin and Plavix. 5.Depression. 6.Gout. 7.Hypertension, well controlled. 8.Dyslipidemia, well controlled. Echocardiogram is pending. I would not change her medical therapy at this point. Continue diuresis. The patient can probably go home in the next day. The case was discussed with Dr. Jalloh. [facility] cardiac workup at this point. XI/MAGGIEL Voice ID: [id number] Report ID: [id number]
--- NOTE | 2017-10-30 14:19 | P.DS ---
Admission Date: 10/28/17 Discharge Date: 10/30/17 Disposition: ROUTINE DISCHARGE Discharge Condition: GOOD Reason for Admission: pulmonary edema Consultations: Cardiology - Problems (1) Atrial fibrillation with RVR Onset Date: 10/28/17 Current Visit: Yes Status: Resolved (2) Pulmonary edema Onset Date: 10/28/17 Current Visit: Yes Status: Resolved Qualifiers: Chronicity: acute Qualified Code(s): J81.0 - Acute pulmonary edema (3) Coronary artery disease Onset Date: 09/27/17 Current Visit: Yes Status: Chronic Qualifiers: Coronary Disease-Associated Artery/Lesion type: [place] artery [place] vs. transplanted heart: [place] heart Associated angina: without angina Qualified Code(s): I25.10 - Atherosclerotic heart disease of [place] coronary artery without angina pectoris (4) Diabetes Onset Date: 10/28/17 Current Visit: Yes Status: Chronic Qualifiers: Diabetes mellitus type: type 2 Diabetes mellitus halfway insulin use: without long term care phlebotomist use Diabetes mellitus complication status: without complication Qualified Code(s): E11.9 - Type 2 diabetes mellitus without complications (5) Gastro-esophageal reflux disease without esophagitis Onset Date: 09/27/17 Current Visit: No Status: Chronic (6) Gout Onset Date: 09/27/17 Current Visit: No Status: Chronic Qualifiers: Gout site: unspecified site Gout etiology: unspecified cause Chronicity: unspecified Qualified Code(s): M10.9 - Gout, unspecified (7) Hyperlipidemia Onset Date: 09/27/17 Current Visit: No Status: Chronic Qualifiers: Hyperlipidemia type: mixed hyperlipidemia Qualified Code(s): E78.2 - Mixed hyperlipidemia (8) Type 2 diabetes mellitus without complications Onset Date: 09/27/17 Current Visit: No Status: Chronic Qualifiers: Diabetes mellitus halfway insulin use: without long term care phlebotomist use Qualified Code(s): E11.9 - Type 2 diabetes mellitus without complications (9) HTN (hypertension) Onset Date: 02/21/17 Current Visit: No Status: Chronic Qualifiers: Hypertension type: essential hypertension Brief History of Present Illness: Ms Johnson is an 87 years old woman with multiple medical problems, including moderate pulmonary hypertension, DM II, HTN, CAD s/p CABG who started last night complaining of chest tightness associated with SOB. The chest tightness last for 2 hours, substernal, 4-5/10 of intensity. She denied nausea or vomiting, no diaphoresis. In ER the patient was found on A.Fib, no previous history on our records, HR about 120's, BP 174/94, O2 sat 94% or RA. EKG afib 140's without ST abnormalities. She was recently diagnosed with C.Diff and is on ongoing treatment with Flagyl PO. No history of cough or fever. Hospital Course: Overall during the hospital stay patient remained stable Patient was initially admitted to the hospital for acute CHF exacerbation along with AFib with RVR. For patient's acute CHF exacerbation patient was started on IV Lasix b.i.d. along with beta-boaz from home. Patient had marked improvement in her symptoms. Cardiology was consulted who agreed with the plan and thus patient was then switched over to p.o. Lasix once her acute exacerbation has resolved. Patient also had atrial fibrillation with RVR now in the hospital after her CHF exacerbation was resolved patient has AFib with RVR also resolved here in the hospital. Patient continued on Eliquis while here in the hospital for anti coagulation. Again cardiology agreed with the plan and recommended that no medication be changed at this time and patient can be discharged home with doing well. Patient ambulated and has tolerated her diet and thus was discharged home under stable condition. Patient was asked to be on a 2 g sodium diet and 1 L fluid restriction when she gets back to the detention. At the detention patient was kept on isolation due to see dismissal. C.difficile was done here in the hospital which was negative and patient was discontinued from isolation and medication. Patient will no longer need isolation at the detention as her C. difficile has resolved. Patient and detention or both notified of patient's discharge here from the hospital and patient was asked to follow up with cardiology in 1-2 days post discharge. Patient demonstrated understanding and thus was discharged home under stable condition Vital Signs/Physical Exam: Temp Pulse Resp BP Pulse Ox 97.9 F 97 H 16 121/74 96 10/30/17 08:00 10/30/17 08:40 10/30/17 08:00 10/30/17 08:40 10/30/17 08:00 General: Alert, In no apparent distress HEENT: Atraumatic, PERRLA, EOMI Neck: Supple, JVD not distended Respiratory: Clear to auscultation bilaterally, Normal air movement Cardiovascular: Regular rate/rhythm, Normal S1 S2 Gastrointestinal: Normal bowel sounds, No tenderness Musculoskeletal: No tenderness Integumentary: No rashes Neurological: Normal speech, Normal tone, Normal affect Lymphatics: No axilla or inguinal lymphadenopathy Laboratory Data at Discharge: WBC 8.8 K/uL (4.3-10.9) 10/29/17 05:38 Hgb 12.7 g/dL (12.0-15.0) 10/29/17 05:38 Hct 41.9 % (36.0-45.0) D 10/29/17 05:38 Plt Count 163 K/uL (152-406) 10/29/17 05:38 PT 12.8 SECONDS (9.5-12.5) H 10/28/17 03:11 INR 1.08 10/28/17 03:11 APTT 26.1 SECONDS (24.3-36.9) 10/28/17 03:11 Sodium 140 mEq/L (135-145) 10/30/17 05:22 Potassium 3.9 mEq/L (3.6-5.0) 10/30/17 05:22 BUN 15 mg/dL (6-20) 10/30/17 05:22 Creatinine 1.01 mg/dL (0.44-1.00) H 10/30/17 05:22 Glucose 229 mg/dL (65-120) H 10/30/17 05:22 Magnesium 1.8 mg/dL (1.8-2.5) 10/30/17 05:22 Total Bilirubin 0.6 mg/dL (0.3-1.2) 10/28/17 03:11 AST 30 IU/L (10-42) 10/28/17 03:11 ALT 18 IU/L (10-60) 10/28/17 03:11 Alkaline Phosphatase 118 IU/L (42-121) 10/28/17 03:11 Troponin I 0.06 ng/mL (<0.03) H 10/29/17 10:15 B-Natriuretic Peptide 3008 pg/ml (<=100) H 10/28/17 03:11 Home Medications: Allopurinol [Zyloprim*] 100 mg PO DAILY 10/03/16 Atorvastatin Calcium [Lipitor*] 10 mg PO BEDTIME 04/12/17 Furosemide [Lasix*] 40 mg PO DAILY 10/03/16 Insulin -Regular Human [Novolin -R*] 0 unit SQ SEECOM 10/03/16 Insulin Detemir [Levemir*] 18 unit SQ BEDTIME 10/03/16 Insulin Detemir [Levemir*] 25 unit SQ DAILY 10/03/16 Ropinirole HCl [Requip*] 2 mg PO BID 10/03/16 Acetaminophen with Codeine [Acetaminophen-Cod #3 Tablet] 1 tab PO Q6H PRN Aspirin 81 mg PO DAILY 08/29/17 Clopidogrel Bisulfate [Plavix*] 75 mg PO DAILY 08/29/17 Duloxetine HCl 40 mg PO DAILY 08/29/17 Losartan Potassium 100 mg PO DAILY 08/29/17 Meclizine HCl [Antivert*] 12.5 mg PO TID PRN 08/29/17 Metoprolol Succinate [Toprol Xl] 100 mg PO DAILY 08/29/17 Tamsulosin [Flomax*] 0.4 mg PO DAILY #30 cap 09/03/17 Mirtazapine [Remeron*] 15 mg PO BEDTIME 09/22/17 Tramadol HCl [Ultram] 1 tab PO Q8H 09/22/17 Cranberry Fruit Extract 200 mg PO TID cap 09/27/17 Gabapentin [Gralise] 300 mg PO TID #90 tab.er.24h 09/27/17 Insulin Detemir [Levemir] 18 unit SQ BEDTIME 10/28/17 Patient Discharge Instructions: Please f/u with Dr see on saturday at 8:30 AM in the clinic. No new medication Diet: Regular Activity: Ad courtney Followup: Ray See MD [ACTIVE - CAN ADMIT] - 1-2 Days
[2017-10-30 14:24] VITALS: BP 133/60
[2017-10-30 16:52] VITALS: TEMP 98.1
== END 2017-10-30 15:12 | disposition home or self-care (01) | DRG 293 ==
LOC: ER 02:17 → ERHOLD 04:49 → 2ND 08:18
PROVIDERS: ADMIT Internal Medicine; ATTEND Internal Medicine
DX: I11.0 Hypertensive heart disease with heart failure (principal); I50.33 Acute on chronic diastolic (congestive) heart failure; I48.91 Unspecified atrial fibrillation; E11.9 Type 2 diabetes mellitus without complications; I25.10 Atherosclerotic heart disease of native coronary artery without angina pectoris; F32.9 Major depressive disorder, single episode, unspecified; M10.9 Gout, unspecified; E78.5 Hyperlipidemia, unspecified; K21.9 Gastro-esophageal reflux disease without esophagitis; I27.20 Pulmonary hypertension, unspecified; Z95.1 Presence of aortocoronary bypass graft; Z88.2 Allergy status to sulfonamides; Z88.7 Allergy status to serum and vaccine; Z95.5 Presence of coronary angioplasty implant and graft; Z79.82 Long term (current) use of aspirin
CPT/HCPCS: 36415; 51702; 71045; 80048; 80076; 81003; 81015; 82550; 82553; 82962; 83735; 83880; 84132; 84484; 85025; 85610; 85730; 87493; 93005; 94760; 96372; 99285; J1650; J1940; J3475; J7512

== ENCOUNTER 2017-11-20 09:59 | Emergency (ER) | payer OTHER ==
[2017-11-20] MEDS ORDERED: NA CHLORIDE 0.9% 2,000 ML ONE (10:02)
[2017-11-20] MEDS ORDERED: DOPAMINE/D5W 400 MG/250 ML BAG IV ONE (10:15)
[2017-11-20] MEDS ORDERED: ONDANSETRON 4 MG/2 ML VIAL ONE (10:42)
[2017-11-20] MEDS ORDERED: FENTANYL CITR 100 MCG/2 ML ONE (10:42)
[2017-11-20] MEDS ORDERED: PANTOPRAZOLE 40 MG INJ ONE (10:52)
[2017-11-20 11:16] LABS: Absolute Lymphocytes (CBC) 1.9 K/uL (0.7-4.9); Absolute Monocytes 1.2 K/uL (0.1-1.3); Hematocrit 28.1 % (36.0-45.0); MCH 25.3 pg (27.0-35.0); MCV 82.9 fL (80-100); MPV 9.7 fL (7.6-11.3); Monocytes % 3.1 % (3.3-12.3); RBC Red Blood Cell Count 3.39 M/uL (3.86-4.86)
[2017-11-20 11:20] LABS: Protime INR 1.04
--- NOTE | 2017-11-20 11:27 | RAD REPORT ---
EXAM DESCRIPTION: RAD - Chest Single View - 11/20/2017 11:08 am CLINICAL HISTORY: Hypotension, rectal bleeding, history of pulmonary edema, declining state COMPARISON: October 28, September 27 TECHNIQUE: AP portable chest image was obtained 1103 hours . FINDINGS: No peripheral mass, consolidation or significant failure finding. Lung markings are promin ent believed to be baseline for the patient. Heart size is upper normal to slightly enlarged. This is stable. No vascular engorgement. Sternotomy wires are in place. Trachea is midline. No measurable pl eural effusion and no pneumothorax. No gross bony abnormality seen. No acute aortic findings suspecte d. IMPRESSION: Mild baseline prominence of the interstitial markings. No acute lung parenchymal process . Borderline to mild cardiomegaly, stable from prior imaging, with no significant failure or volume ove rload finding.
[2017-11-20 11:49] LABS: Albumin 1.6 g/dL (3.2-5.5); Bilirubin Direct 0.1 mg/dL (0-0.2); Bilirubin Total 0.5 mg/dL (0.3-1.2); CKMB Creatine Kinase MB 6.1 ng/ml (0.3-4.0); Magnesium 1.6 mg/dL (1.8-2.5); Potassium 3.6 mEq/L (3.6-5.0); Protein, Total 4.2 g/dL (6.0-8.3)
[2017-11-20 12:05] LABS: Urine Blood NEGATIVE (NEG); Urine Glucose NEGATIVE (NEG); Urine Protein NEGATIVE (NEG)
[2017-11-20] MEDS ORDERED: NOREPINEPHRINE 4mg/D5W 250mL 0 MG/0 ML BAG IV ONE (12:05)
--- NOTE | 2017-11-20 12:05 | EKG ---
Test Date: 2017-11-20 Test Time: 11:04:45 Instrument Mechanic: JABIER MEASUREMENT RESULTS: Intervals: Rate: 101 RI: 138 QRSD: 92 QT: 370 QTc: 479 [place]: P: 39 RI: 138 QRS: 72 T: -75 INTERPRETIVE STATEMENTS: Sinus tachycardia Nonspecific T wave abnormality Abnormal ECG Compared to ECG 10/28/2017 02:23:28 Atrial fibrillation no longer present T-wave abnormality still present Electronically Signed On 11-20-17 12:04:52 CDT by Damion Ramsey
[2017-11-20] MEDS ORDERED: NOREPINEPHRINE 4 MG in D5W 250 ML IV PRN ×2 (12:08→13:24)
[2017-11-20 12:17] LABS: Anisocytosis 2+; Blood Morphology Comment NOTED (NOT SEEN); Burr Cells 1+; Platelet Estimate ADEQ; Toxic Granulation 1+
[2017-11-20] MEDS ORDERED: CEFTRIAXONE/SWI 1gm 1 GM/10 ML SYR ONE (12:46)
[2017-11-20] MEDS ORDERED: VANCOMYCIN 1 GM/250 ML BAG ONE (12:46)
--- NOTE | 2017-11-20 13:22 | EDPHYS ---
Physician Documentation [facility] Name: Lainey Johnson Age: 87 yrs Sex: Female : 1930 Arrival Date: 11/20/2017 Time: 10:01 Bed 2 Private MD: ED Physician Sergio Johnson HPI: 11/20 10:41 This 87 yrs old Female presents to ER via Unassigned with complaints of GI kdr Bleeding - Low Blood Pressure. 10:45 The patient presents to the emergency department with rectal bleeding, a moderate kdr amount, melena, with incontinence, with multiple such episodes. Onset: The symptoms/episode began/occurred gradually, 2 day(s) ago. Abdominal pain: described as achy, crampy, steady, vague,\E\ located in the right upper quadrant and right lower quadrant. Modifying factors: The symptoms are alleviated by nothing, the symptoms are aggravated by movement. Associated signs and symptoms: Pertinent positives: diarrhea, Abdominal pain and dark tar like stools. Severity of symptoms: At their worst the symptoms were. It is unknown whether or not the patient has had similar symptoms in the past. The patient has been recently seen by a physician: Historical: - Allergies: 10:29 metformin; aj1 10:29 Morphine; aj1 10:29 Lyrica; aj1 10:29 Sulfa (Sulfonamide Antibiotics); aj1 10:29 Tetanus Vaccines \T\ Toxoid; aj1 10:29 CHLORINE; aj1 - PMHx: 10:29 C-diff; Hypertension; Atrial Fib; pulmonary edema; dysphagia; Diabetes - IDDM; aj1 Depression; atherosclerosis; GERD; Anemia; CAD; Gout; High Cholesterol; Myocardial infarction; restless leg syndrome; - Immunization history:: Adult Immunizations up to date. - Social history:: Smoking status: Patient/guardian denies using tobacco. - Ebola Screening: : No symptoms or risks identified at this time. ROS: 10:45 Constitutional: Negative for fever, chills, and weight loss, Eyes: Negative for injury, kdr pain, redness, and discharge, ENT: Negative for injury, pain, and discharge, Neck: Negative for injury, pain, and swelling, Cardiovascular: Negative for chest pain, palpitations, and edema, Respiratory: Negative for shortness of breath, cough, wheezing, and pleuritic chest pain, Back: Negative for injury and pain, : Negative for injury, bleeding, discharge, and swelling, MS/Extremity: Negative for injury and deformity, Skin: Negative for injury, rash, and discoloration, Psych: Negative for depression, anxiety, suicide ideation, homicidal ideation, and hallucinations, Allergy/Immunology: Negative for hives, rash, and allergies, Endocrine: Negative for neck swelling, polydipsia, polyuria, polyphagia, and marked weight changes, Hematologic/Lymphatic: Negative for swollen nodes, abnormal bleeding, and unusual bruising. 10:45 Neuro: Positive for weakness. Exam: 10:48 Constitutional: This is a well developed, well nourished patient who is awake, alert, kdr and in no acute distress. Head/Face: Normocephalic, atraumatic. Eyes: Pupils equal round and reactive to light, extra-ocular motions intact. Lids and lashes normal. Conjunctiva and sclera are non-icteric and not injected. Cornea within normal limits. Periorbital areas with no swelling, redness, or edema. Neck: Trachea midline, no thyromegaly or masses palpated, and no cervical lymphadenopathy. Supple, full range of motion without nuchal rigidity, or vertebral point tenderness. No Meningismus. Chest/axilla: Normal chest wall appearance and motion. Nontender with no deformity. No lesions are appreciated. Respiratory: Lungs have equal breath sounds bilaterally, clear to auscultation and percussion. No rales, rhonchi or wheezes noted. No increased work of breathing, no retractions or nasal flaring. Back: No spinal tenderness. No costovertebral tenderness. Full range of motion. Skin: Warm, dry with normal turgor. Normal color with no rashes, no lesions, and no evidence of cellulitis. MS/ Extremity: Pulses equal, no cyanosis. Neurovascular intact. Full, normal range of motion. Neuro: Awake and alert, GCS 15, oriented to person, place, time, and situation. Cranial nerves II-XII grossly intact. Motor strength 5/5 in all extremities. Sensory grossly intact. Cerebellar exam normal. Normal gait. Psych: Awake, alert, with orientation to person, place and time. Behavior, mood, and affect are within normal limits. 10:48 Cardiovascular: Rate: normal, tachycardic, Rhythm: regular, Pulses: Pulses are 1+ in right femoral artery. weak, Heart sounds: normal, Edema: is not appreciated. Vital Signs: 10:00 BP 69 / 47; Pulse 107; Resp 24; Temp 98.9(A); Pulse Ox 100% on Non-rebreather mask; aj1 10:10 BP 65 / 39; Pulse 97; Resp 28; Pulse Ox 100% on Non-rebreather mask; aj1 10:30 BP 58 / 33; Pulse 114; Resp 27; Pulse Ox 98% on Non-rebreather mask; aj1 10:41 BP 89 / 32; Pulse 112; Resp 24; Pulse Ox 100% on Non-rebreather mask; aj1 10:55 BP 91 / 50; Pulse 104; Resp 18; Pulse Ox 100% on Non-rebreather mask; aj1 11:03 BP 84 / 46; Pulse 103; Resp 28; Temp 96.6(wong); Pulse Ox 100% on Non-rebreather mask; aj1 11:10 BP 90 / 47; Pulse 97; Resp 19; Pulse Ox 100% on NC; aj1 11:23 BP 64 / 45; Pulse 101; Resp 20; Pulse Ox 96% on NC; aj1 11:29 Weight 85.28 kg (R); iw 11:37 BP 88 / 59; Pulse 103; Resp 22 S; Pulse Ox 100% on 4 lpm NC; iw 11:51 BP 80 / 59; Pulse 110; Resp 16; Pulse Ox 98% on NC; aj1 12:00 BP 80 / 71; Pulse 110; Resp 18; Pulse Ox 100% on R/A; aj1 12:15 BP 81 / 39; Pulse 105; Resp 18; Temp 96.8; Pulse Ox 100% ; aj1 12:30 BP 93 / 36; Pulse 102; Resp 16; Pulse Ox 100% on NC; aj1 12:45 BP 74 / 36; Pulse 94; Resp 14; Pulse Ox 100% on NC; aj1 13:00 BP 89 / 58; Pulse 96; Resp 13; Pulse Ox 100% on NC; aj1 13:15 BP 103 / 49; Pulse 96; Resp 14; Temp 97.1; Pulse Ox 100% on NC; aj1 13:28 BP 120 / 51; Pulse 101; Resp 16 S; Pulse Ox 100% on 4 lpm NC; iw 13:33 BP 111 / 51; Pulse 104; Resp 23; Temp 97.1(C); Pulse Ox 98% on 4 lpm NC; iw 13:50 BP 107 / 54; Pulse 94; Resp 12; Temp 97.1; Pulse Ox 100% on NC; aj1 14:00 BP 117 / 54; Pulse 95; Resp 13; Temp 97.1; Pulse Ox 100% on NC; aj1 14:21 BP 107 / 38; Pulse 100; Resp 12; Temp 97.3; Pulse Ox 100% on NC; aj1 14:38 BP 114 / 70; Pulse 102; Resp 12; Temp 97.5; Pulse Ox 100% on R/A; aj1 15:18 BP 91 / 72; Pulse 99; Resp 12; Temp 97.9; Pulse Ox 100% ; aj1 15:27 BP 85 / 47; Pulse 101; Resp 22; Temp 98.1; Pulse Ox 100% on NC; aj1 15:40 BP 94 / 48; Pulse 107; Resp 14; Temp 98.1; Pulse Ox 100% on 2 lpm NC; aj1 16:10 BP 91 / 52; Pulse 109; Resp 18; Pulse Ox 100% ; jl7 16:30 BP 97 / 82; Pulse 112; Resp 12; Temp 98.8; Pulse Ox 100% on R/A; aj1 16:45 BP 103 / 45; Pulse 93; Resp 16; Pulse Ox 100% ; aj1 16:57 BP 100 / 43; Pulse 112; Resp 14; Pulse Ox 98% ; aj1 Procedures: 10:48 Central Line: the site was prepped with Betadine, in sterile fashion, a triple lumen kdr catheter was inserted, in the right femoral vein, in 3 attempts. placement was verified, by blood return, the site was dressed with Tegaderm, using sterile technique, the patient tolerated the procedure, well. MDM: 10:48 Data reviewed: vital signs, nurses notes, lab test result(s), radiologic studies. kdr Counseling: I had a detailed discussion with the patient and/or guardian regarding: the historical points, exam findings, and any diagnostic results supporting the discharge/admit diagnosis, lab results, radiology results, the need for further work-up and treatment in the hospital. 13:22 Patient medically screened. kdr 11/20 10:32 Order name: Basic Metabolic Panel aj1 11/20 10:32 Order name: BNP [facility] 11/20 10:32 Order name: CBC with Diff [facility] 11/20 10:32 Order name: Ckmb; Complete Time: 12:48 [facility] 11/20 10:32 Order name: CPK; Complete Time: 12:48 [facility] 11/20 10:32 Order name: LFT's; Complete Time: 12:48 [facility] 11/20 10:32 Order name: Magnesium; Complete Time: 12:48 [facility] 11/20 10:32 Order name: PT-INR; Complete Time: 11:45 [facility] 11/20 10:32 Order name: Ptt, Activated; Complete Time: 11:45 [facility] 11/20 10:32 Order name: Troponin (emerg Dept Use Only); Complete Time: 11:45 [facility] 11/20 10:32 Order name: Type And Screen; Complete Time: 12:48 [facility] 11/20 10:32 Order name: Basic Metabolic Panel; Complete Time: 12:48 [facility] 11/20 10:32 Order name: BNP B-Type Natriuretic Peptide; Complete Time: 11:45 [facility] 11/20 10:32 Order name: CBC with Automated Diff; Complete Time: 12:48 [facility] 11/20 10:32 Order name: XRAY Chest (1 view); Complete Time: 11:45 [facility] 11/20 10:48 Order name: Blood Culture Adult (2) [facility] 11/20 11:20 Order name: Manual Differential; Complete Time: 12:48 [facility] 11/20 11:24 Order name: Urine Culture 3 11/20 11:53 Order name: Urine Dipstick--Ancillary (enter results); Complete Time: 12:48 ag 11/20 12:46 Order name: CRP; Complete Time: 14:41 kdr 11/20 12:46 Order name: ESR; Complete Time: 14:41 kdr 11/20 12:46 Order name: Procalcitonin; Complete Time: 14:41 kdr 11/20 12:46 Order name: Lactate; Complete Time: 14:41 kdr 11/20 12:50 Order name: CT Abd/Pelvis - Without Cont kdr 11/20 13:27 Order name: Basic Metabolic Panel [facility] 11/20 13:27 Order name: CBC with Automated Diff [facility] 11/20 16:37 Order name: Guiac iw 11/20 16:38 Order name: Occult Blood--Ancillary; Complete Time: 17:31 [facility] 11/20 10:32 Order name: EKG; Complete Time: 10:32 11/20 10:32 Order name: Cardiac monitoring; Complete Time: 10:49 11/20 10:32 Order name: EKG - Nurse/Tech; Complete Time: 11:36 11/20 10:32 Order name: IV Saline Lock; Complete Time: 10:49 11/20 10:32 Order name: Labs collected and sent; Complete Time: 10:49 11/20 10:32 Order name: O2 Per Protocol; Complete Time: 10:49 11/20 10:32 Order name: O2 Sat Monitoring; Complete Time: 10:49 11/20 10:32 Order name: Urine Dipstick-Ancillary (obtain specimen); Complete Time: 11:36 11/20 10:43 Order name: Wong; Complete Time: 11:01 kdr 11/20 13:27 Order name: NPO; Complete Time: 13:32 [facility] 11/20 14:36 Order name: CT; Complete Time: 14:41 [facility] 11/20 14:54 Order name: CT Head Brain wo Cont; Complete Time: 17:31 kdr Administered Medications: Discontinued: Dopamine drip 5 mcg/kg/min - (DOPamine 400 mg, D5W 250 ml) IV at calculated rate continuous; Titrate to keep systolic blood pressure greater than 90mmHg Discontinued: NS 0.9% 1000 ml IV at 1 bolus Per protocol; 1000 mL bolus 10:35 Drug: Dopamine drip 5 mcg/kg/min - (DOPamine 400 mg, D5W 250 ml) Route: IV; Rate: aj1 calculated rate; Site: right femoral; 11:35 Follow up: Rate change 15 mcg/kg/min iw 13:30 Follow up: IV Status: Order to discontinue infusion 10:35 Drug: NS 0.9% 500 ml Route: IV; Rate: bolus; Site: right femoral; aj1 11:30 Follow up: IV Status: Completed infusion; IV Intake: 500ml aj 10:38 Drug: NS 0.9% 1000 ml Route: IV; Rate: 1 bolus; Site: right femoral; aj1 13:30 Follow up: IV Status: Order to discontinue infusion aj 10:48 Drug: fentaNYL (PF) 25 mcg Route: IVP; Site: right femoral; aj1 17:05 Follow up: Response: No adverse reaction 10:48 Drug: Zofran 4 mg Route: IVP; Site: right femoral; aj1 11:30 Follow up: Response: No adverse reaction aj1 11:13 Drug: ProTONIX 40 mg Route: IVP; Site: right femoral; aj1 11:30 Follow up: Response: No adverse reaction 11:23 CANCELLED (Physician Discretion): NS 0.45 % 1000 ml IV at 125 ml/hr continuous 11:23 Drug: NS 0.9% 1000 ml Route: IV; Rate: 125 ml/hr; Site: right femoral; aj1 17:07 Follow up: IV Status: Infusion continued upon transfer; IV Intake: 700ml aj1 12:30 Drug: Levophed (4 mg/250 mL D5W 4 mcg/min Route: IV; Rate: calculated rate; Site: right aj1 femoral; 12:53 Follow up: Rate change 8 mcg/min iw 17:07 Follow up: IV Status: Infusion continued upon transfer; IV Intake: 203ml aj1 12:53 Not Given (Duplicate Order): Levophed (4 mg/250 mL D5W 4 mcg/min IV at calculated rate iw Per protocol; (final conc is 16 microgram/mL) - Titrate to SBP >=90 13:00 Drug: Rocephin - (cefTRIAXone) 1 grams Route: IVPB; Infused Over: 30 mins; Site: right aj femoral; 17:08 Follow up: IV Status: Completed infusion aj 13:05 Drug: vancoMYCIN 1 grams Route: IVPB; Infused Over: 2 hrs; Site: right femoral; aj1 17:08 Follow up: IV Status: Completed infusion; IV Intake: 250ml aj1 13:25 Drug: NS 0.9% 1000 ml Route: IV; Rate: 1 bolus; Site: right femoral; iw 17:08 Follow up: IV Status: Completed infusion; IV Intake: 1000ml aj 13:45 Drug: ProTONIX 8 mg/hr Route: IV; Rate: 25 ml/hr; Site: right femoral; iw 17:09 Follow up: IV Status: Completed infusion; IV Intake: 76.62ml aj 15:27 Drug: Flagyl 500 mg Volume: 100 ml; Route: IVPB; Rate: 200 ml/hr; Infused Over: 30 aj1 mins; Site: right femoral; 17:09 Follow up: IV Status: Completed infusion; IV Intake: 100ml aj1 Disposition: 11/20/17 14:53 Transfer ordered to [facility]. Diagnosis is Abdominal pain, jones colitis, pervorated viscous, anemia,. - Reason for transfer: Higher level of care. - Accepting physician is [facility]. - Condition is Critical. - Problem is new. - Symptoms have improved. Critical care time excluding procedures: 10:48 Critical care time: Bedside Care: 35 minutes, Consultation: 10 minutes, Family kdr Intervention: 5 minutes. Total time: 50 minutes Signatures: Dispatcher [employer] EDAnika Ricci RN RN aj1 Sergio Johnson MD MD kdr Kylah Portillo RN RN iw Paty Ledzema Corrections: (The following items were deleted from the chart) 11:23 10:43 NS 0.45 % 1000 ml IV at 125 ml/hr continuous ordered. kdr aj1 14:46 13:22 Hospitalization Ordered by Pasquale Ross MD for Inpatient Admission. Preliminary ag diagnosis is GI BLeed, anemia, weakness. Bed requested for Intensive Care Unit. Status is Inpatient Admission. Condition is Serious. Problem is new. Symptoms have improved. UTI on Admission? No. kdr 14:51 14:46 11/20/2017 13:22 Hospitalization Ordered by Pasquale Ross MD for Inpatient kdr Admission. Preliminary diagnosis is GI BLeed, anemia, weakness. Bed requested for Intensive Care Unit. Status is Inpatient Admission. Condition is Serious. Problem is new. Symptoms have improved. UTI on Admission? No. ag 17:12 14:53 11/20/2017 14:53 Transfer ordered to [facility]. Diagnosis is aj1 Abdominal pain, jones colitis, pervorated viscous, anemia,. Reason for transfer: Higher level of care. Accepting physician is [facility]. Condition is Critical. Problem is new. Symptoms have improved. kdr
--- NOTE | 2017-11-20 13:22 | ER ---
Nurse's Notes [facility] Name: Lainey Johnson Age: 87 yrs Sex: Female : 1930 Arrival Date: 11/20/2017 Time: 10:01 Bed 2 Private MD: Diagnosis: Abdominal pain, jones colitis, pervorated viscous, anemia, Presentation: 11/20 10:00 Presenting complaint: EMS states: She has been having black, foul smelling diarrhea for aj1 the past 2 to 3 days. [facility] staff noticed that she looked pale and was acting sleepy, when they checked her blood pressure it was 82/34. Patient complains of abdominal pain to the right upper quadrant. Denies nausea/vomiting. Denies fever. O2 sat upon EMS arrival was 70-84% on 4L nc. Patient was placed on non-rebreather by EMS. 10:00 Transition of care: patient was received from another setting of care (long-term care [facility]. Onset of symptoms was November 17, 2017. Risk Assessment: Do you want to hurt yourself or someone else? Patient reports no desire to harm self or others. Initial Sepsis Screen: Does the patient meet any 2 criteria? RR > 20 per min. Systolic BP < 90 mmHg. Mean Arterial Pressure (MAP) < 65. HR > 90 bpm. Does the patient have a suspected source of infection? Yes: Other: diarrhea If YES to both, name of provider notified: Sergio Johnson MD. Care prior to arrival: Glucose check: 253. 10:00 Method Of Arrival: EMS: [facility] aj1 10:30 Acuity: BRIANA 1 aj Historical: - Allergies: 10:29 metformin; 10:29 Morphine; 10:29 Lyrica; aj 10:29 Sulfa (Sulfonamide Antibiotics); aj 10:29 Tetanus Vaccines \T\ Toxoid; 10:29 CHLORINE; aj - PMHx: 10:29 C-diff; Hypertension; Atrial Fib; pulmonary edema; dysphagia; Diabetes - IDDM; aj1 Depression; atherosclerosis; GERD; Anemia; CAD; Gout; High Cholesterol; Myocardial infarction; restless leg syndrome; - Immunization history:: Adult Immunizations up to date. - Social history:: Smoking status: Patient/guardian denies using tobacco. - Ebola Screening: : No symptoms or risks identified at this time. Screenin:00 Tuberculosis screening: No symptoms or risk factors identified. aj1 11:37 Abuse screen: Denies threats or abuse. Denies injuries from another. Nutritional iw screening: No deficits noted. 17:03 Fall Risk No fall in past 12 months (0 pts). Secondary diagnosis (15 points) impaired aj1 mobility, IV access (20 points). Ambulatory Aid- None/Bed Rest/Nurse Assist (0 pts). Gait- Weak (10 pts.). Mental Status- Oriented to own ability (0 pts). Total Marrero Fall Scale indicates Low Risk Score (25-44 pts). As available Patient and Family Educated on Fall Prevention Program and strategies. Assessment: 10:00 General: Appears uncomfortable, ill, Behavior is listless. Pain: Complains of pain in aj1 right upper quadrant Pain does not radiate. Pain currently is 7 out of 10 on a pain scale. Quality of pain is described as aching, crampy, Is continuous, Alleviated by nothing. Aggravated by repositioning. Neuro: Level of Consciousness is awake, listless, Oriented to person, place, situation, [employer] are weak bilaterally Speech soft and slow. Facial symmetry appears normal. Cardiovascular: Heart tones S1 S2 present Capillary refill < 3 seconds in bilateral fingers Rhythm is sinus tachycardia Chest pain is denied. Respiratory: Reports shortness of breath Airway is patent Respiratory effort is even, unlabored, Respiratory pattern is regular, symmetrical, Breath sounds are clear bilaterally. the patient has mild shortness of breath. GI: Abdomen is round distended, Bowel sounds present X 4 quads. Abd is soft X 4 quads Abdomen is tender to palpation in right upper quadrant and right lower quadrant Reports diarrhea, Patient currently denies nausea, vomiting. : No signs and/or symptoms were reported regarding the genitourinary system. EENT: No signs and/or symptoms were reported regarding the EENT system. Derm: Skin is pale. Musculoskeletal: Circulation, motion, and sensation intact. 11:00 Reassessment: pt incontinent of stool, pt cleaned, brief applied, pt had moderate iw amount of black tarry stool, pt still c/o nausea and abd pain, Wong in place. 11:05 Reassessment: Tai hugger placed on patient. aj1 11:05 Reassessment: Patient appears in no apparent distress at this time. No changes from aj1 previously documented assessment. Patient and/or family updated on plan of care and expected duration. Pain level reassessed. 11:35 Reassessment: Dopamine drip increased to 15 mcg/kg/min for BP 64/45. iw 12:00 Reassessment: Notified Dr. Johnson that patient's SBP is still in the 80's, and her aj1 heart rate is in the 110's. Order reiceved to change drip to Levophed. Order for Levophed faxed to pharmacy. 12:00 Reassessment: No changes from previously documented assessment. Patient and/or family aj1 updated on plan of care and expected duration. Pain level reassessed. General: Appears uncomfortable, ill, Behavior is listless. Pain: Denies pain. Neuro: Level of Consciousness is awake, listless, Oriented to person, place, time, situation. Cardiovascular: Rhythm is sinus tachycardia. Respiratory: Airway is patent Respiratory effort is even, unlabored, Respiratory pattern is regular, symmetrical, Breath sounds are clear. GI: Abdomen is round distended, Abd is soft X 4 quads. Derm: Skin is pale. 12:45 Reassessment: Levophed increased to 8 mcg/min. aj1 13:00 Reassessment: Levophed increased to 12 mcg/min. aj1 13:00 Reassessment: Patient appears in no apparent distress at this time. No changes from aj1 previously documented assessment. Patient and/or family updated on plan of care and expected duration. Pain level reassessed. 13:29 Reassessment: 2nd Liter NS bolus started per Dr. Johnson, BP up to 120/51, family at iw bedside, pt awake, talking with family, no new episodes of black tarry stool. 14:03 Reassessment: Patient transported to CT, accompanied by me. aj1 14:21 Reassessment: Patient returned to ER bed 2. Tolerated CT well. aj1 14:21 Reassessment: Patient appears in no apparent distress at this time. Patient and/or aj1 family updated on plan of care and expected duration. Pain level reassessed. Patient states feeling better. General: Appears in no apparent distress. uncomfortable, ill, Behavior is calm, cooperative. Pain: Denies pain. Neuro: Level of Consciousness is awake, alert, Oriented to person, place, time, situation, Facial symmetry appears normal. Cardiovascular: Rhythm is irregular. Respiratory: Airway is patent Respiratory effort is even, unlabored, Respiratory pattern is regular, symmetrical, Breath sounds are clear bilaterally. GI: Abdomen is round distended, Bowel sounds present X 4 quads. Abd is soft X 4 quads. Derm: Skin is pale. 15:06 Reassessment: Patient transported to CT accompanied by me. aj1 15:17 Reassessment: Patient returned to ER bed 2. Tolerated CT well. aj1 15:17 Reassessment: Patient appears in no apparent distress at this time. No changes from aj1 previously documented assessment. Patient and/or family updated on plan of care and expected duration. Pain level reassessed. 15:28 Reassessment: Levophed increased to 16 mcg/min. aj1 16:00 Reassessment: Report given to Ricki Champagne RN at [facility]. aj1 16:15 Reassessment: Patient appears in no apparent distress at this time. Patient and/or aj1 family updated on plan of care and expected duration. Pain level reassessed. General: Appears in no apparent distress. uncomfortable, Behavior is calm, cooperative. Pain: Denies pain. Neuro: Level of Consciousness is awake, alert, obeys commands. Cardiovascular: Rhythm is sinus tachycardia Chest pain is denied. Respiratory: Airway is patent Respiratory effort is even, unlabored, Respiratory pattern is regular, symmetrical, Breath sounds are clear bilaterally. GI: Abdomen is round distended, Abd is soft X 4 quads. Derm: Skin is pale. Musculoskeletal: Circulation, motion, and sensation intact. 16:45 Reassessment: Patient appears in no apparent distress at this time. No changes from aj1 previously documented assessment. Life flight at bedside preparing to transport patient. Vital Signs: 10:00 BP 69 / 47; Pulse 107; Resp 24; Temp 98.9(A); Pulse Ox 100% on Non-rebreather mask; aj1 10:10 BP 65 / 39; Pulse 97; Resp 28; Pulse Ox 100% on Non-rebreather mask; aj1 10:30 BP 58 / 33; Pulse 114; Resp 27; Pulse Ox 98% on Non-rebreather mask; aj1 10:41 BP 89 / 32; Pulse 112; Resp 24; Pulse Ox 100% on Non-rebreather mask; aj1 10:55 BP 91 / 50; Pulse 104; Resp 18; Pulse Ox 100% on Non-rebreather mask; aj1 11:03 BP 84 / 46; Pulse 103; Resp 28; Temp 96.6(wong); Pulse Ox 100% on Non-rebreather mask; aj1 11:10 BP 90 / 47; Pulse 97; Resp 19; Pulse Ox 100% on NC; aj1 11:23 BP 64 / 45; Pulse 101; Resp 20; Pulse Ox 96% on NC; aj1 11:29 Weight 85.28 kg (R); iw 11:37 BP 88 / 59; Pulse 103; Resp 22 S; Pulse Ox 100% on 4 lpm NC; iw 11:51 BP 80 / 59; Pulse 110; Resp 16; Pulse Ox 98% on NC; aj1 12:00 BP 80 / 71; Pulse 110; Resp 18; Pulse Ox 100% on R/A; aj1 12:15 BP 81 / 39; Pulse 105; Resp 18; Temp 96.8; Pulse Ox 100% ; aj1 12:30 BP 93 / 36; Pulse 102; Resp 16; Pulse Ox 100% on NC; aj1 12:45 BP 74 / 36; Pulse 94; Resp 14; Pulse Ox 100% on NC; aj1 13:00 BP 89 / 58; Pulse 96; Resp 13; Pulse Ox 100% on NC; aj1 13:15 BP 103 / 49; Pulse 96; Resp 14; Temp 97.1; Pulse Ox 100% on NC; aj1 13:28 BP 120 / 51; Pulse 101; Resp 16 S; Pulse Ox 100% on 4 lpm NC; iw 13:33 BP 111 / 51; Pulse 104; Resp 23; Temp 97.1(C); Pulse Ox 98% on 4 lpm NC; iw 13:50 BP 107 / 54; Pulse 94; Resp 12; Temp 97.1; Pulse Ox 100% on NC; aj1 14:00 BP 117 / 54; Pulse 95; Resp 13; Temp 97.1; Pulse Ox 100% on NC; aj1 14:21 BP 107 / 38; Pulse 100; Resp 12; Temp 97.3; Pulse Ox 100% on NC; aj1 14:38 BP 114 / 70; Pulse 102; Resp 12; Temp 97.5; Pulse Ox 100% on R/A; aj1 15:18 BP 91 / 72; Pulse 99; Resp 12; Temp 97.9; Pulse Ox 100% ; aj1 15:27 BP 85 / 47; Pulse 101; Resp 22; Temp 98.1; Pulse Ox 100% on NC; aj1 15:40 BP 94 / 48; Pulse 107; Resp 14; Temp 98.1; Pulse Ox 100% on 2 lpm NC; aj1 16:10 BP 91 / 52; Pulse 109; Resp 18; Pulse Ox 100% ; jl7 16:30 BP 97 / 82; Pulse 112; Resp 12; Temp 98.8; Pulse Ox 100% on R/A; aj1 16:45 BP 103 / 45; Pulse 93; Resp 16; Pulse Ox 100% ; aj1 16:57 BP 100 / 43; Pulse 112; Resp 14; Pulse Ox 98% ; aj1 ED Course: 10:00 Arm band placed on. aj1 10:00 Patient has correct armband on for positive identification. Placed in gown. Bed in low aj1 position. Call light in reach. Side rails up X2. bus driver/monitor on. Pulse ox on. NIBP on. Warm blanket given. 10:01 Patient arrived in ED. iw 10:26 Anika King, RN is Primary Nurse. aj1 10:30 Triage completed. aj1 10:30 Assisted provider with central line placement. Set up central line tray. Triple lumen iw line placed in right femoral. Line placed by Sergio Johnson MD Placement verified by blood return, Dressed with 4X4s, Tape, Tegaderm, Blood was collected. Patient tolerated well. Before procedure, did Practitioner(s) obtain informed consent? No. Patient \T\ family education about procedure, CLABSI prevention and S/S of infection? Yes. Time-out/Briefing performed prior to start of procedure? Yes. Was handwashing/sanitizing done immediately prior to procedure? Yes. Was patient positioned to in a way to prevent air embolism? Yes. Was procedure site sterilized? Yes, with chlorhexidine. Was the site allowed to dry? Yes. Was local anesthetic and/or sedation utilized? Yes. During the procedure, did the Practitioner(s) maintain a sterile field? Yes. Were unused ports clamped during insertion? Yes. Was a 2nd qualified MD obtained after 3 unsuccessful insertion attempts? No. Was blood aspirated from each lumen? Yes. After the procedure, did the Practitioner(s) clean the site and apply a sterile dressing? Yes. 10:41 Sergio Johnson MD is Attending Physician. kdr 11:09 XRAY Chest (1 view) In Process Unspecified. EDMS 11:09 EKG done, by quality tech. reviewed by Sergio Johnson MD. at1 11:24 Urine collected: Wong catheter specimen, tea colored. dh3 13:05 Radiology exam delayed due to patient receiving breathing treatment at this time. ANIKA TO CALL WHEN READY. BP TOO LOW. 13:20 Pasquale Ross MD is Hospitalizing Provider. kdr 14:09 CT completed. Patient tolerated procedure well. Patient moved to CT via stretcher. sw 14:[address] via stretcher. sj 15:08 CT completed. Patient tolerated procedure well. Patient moved back from CT. nj 15:09 CT Head Brain wo Cont In Process Unspecified. EDMS 17:03 Patient transferred, IV remains in place. aj1 Administered Medications: Discontinued: Dopamine drip 5 mcg/kg/min - (DOPamine 400 mg, D5W 250 ml) IV at calculated rate continuous; Titrate to keep systolic blood pressure greater than 90mmHg Discontinued: NS 0.9% 1000 ml IV at 1 bolus Per protocol; 1000 mL bolus 10:35 Drug: Dopamine drip 5 mcg/kg/min - (DOPamine 400 mg, D5W 250 ml) Route: IV; Rate: aj1 calculated rate; Site: right femoral; 11:35 Follow up: Rate change 15 mcg/kg/min iw 13:30 Follow up: IV Status: Order to discontinue infusion aj1 10:35 Drug: NS 0.9% 500 ml Route: IV; Rate: bolus; Site: right femoral; aj1 11:30 Follow up: IV Status: Completed infusion; IV Intake: 500ml aj1 10:38 Drug: NS 0.9% 1000 ml Route: IV; Rate: 1 bolus; Site: right femoral; aj1 13:30 Follow up: IV Status: Order to discontinue infusion aj1 10:48 Drug: fentaNYL (PF) 25 mcg Route: IVP; Site: right femoral; aj1 17:05 Follow up: Response: No adverse reaction aj1 10:48 Drug: Zofran 4 mg Route: IVP; Site: right femoral; aj1 11:30 Follow up: Response: No adverse reaction aj1 11:13 Drug: ProTONIX 40 mg Route: IVP; Site: right femoral; aj1 11:30 Follow up: Response: No adverse reaction aj1 11:23 CANCELLED (Physician Discretion): NS 0.45 % 1000 ml IV at 125 ml/hr continuous aj1 11:23 Drug: NS 0.9% 1000 ml Route: IV; Rate: 125 ml/hr; Site: right femoral; aj1 17:07 Follow up: IV Status: Infusion continued upon transfer; IV Intake: 700ml aj1 12:30 Drug: Levophed (4 mg/250 mL D5W 4 mcg/min Route: IV; Rate: calculated rate; Site: right aj1 femoral; 12:53 Follow up: Rate change 8 mcg/min iw 17:07 Follow up: IV Status: Infusion continued upon transfer; IV Intake: 203ml aj1 12:53 Not Given (Duplicate Order): Levophed (4 mg/250 mL D5W 4 mcg/min IV at calculated rate iw Per protocol; (final conc is 16 microgram/mL) - Titrate to SBP >=90 13:00 Drug: Rocephin - (cefTRIAXone) 1 grams Route: IVPB; Infused Over: 30 mins; Site: right aj femoral; 17:08 Follow up: IV Status: Completed infusion aj1 13:05 Drug: vancoMYCIN 1 grams Route: IVPB; Infused Over: 2 hrs; Site: right femoral; aj1 17:08 Follow up: IV Status: Completed infusion; IV Intake: 250ml aj1 13:25 Drug: NS 0.9% 1000 ml Route: IV; Rate: 1 bolus; Site: right femoral; iw 17:08 Follow up: IV Status: Completed infusion; IV Intake: 1000ml aj1 13:45 Drug: ProTONIX 8 mg/hr Route: IV; Rate: 25 ml/hr; Site: right femoral; iw 17:09 Follow up: IV Status: Completed infusion; IV Intake: 76.62ml aj1 15:27 Drug: Flagyl 500 mg Volume: 100 ml; Route: IVPB; Rate: 200 ml/hr; Infused Over: 30 aj1 mins; Site: right femoral; 17:09 Follow up: IV Status: Completed infusion; IV Intake: 100ml aj Intake: 11:30 IV: 500ml; Total: 500ml. aj1 17:07 IV: 700ml; Total: 1200ml. aj1 17:07 IV: 203ml; Total: 1403ml. aj1 17:08 IV: 250ml; Total: 1653ml. aj1 17:08 IV: 1000ml; Total: 2653ml. aj1 17:09 IV: 77ml; Total: 2730ml. aj1 17:09 IV: 100ml; Total: 2830ml. aj1 Outcome: 13:22 Decision to Hospitalize by Provider. kdr 14:53 ER care complete, transfer ordered by MD. kdr 17:02 Transferred by helicopter to [facility]. aj1 17:02 critical 17:02 Discharge instructions given to patient, family, Instructed on the need for transfer, Demonstrated understanding of instructions. 17:12 Patient left the ED. aj1 Addendum: 11/24/2017 07:44 Addendum: Culture Results: Positive urine culture. Phone call Attempt #1 Faxed culture s s report to [facility] ATTN to IRIS Miranda. Signatures: Dispatcher [employer] EDMS Anika King RN RN fuentes Sergio Johnson MD MD kdr Jones, Susan sj Williams, Irene, RN RN Alyssa Kwon RN RN Benita basilio, as400 operator EKG Tat1 Tammy Lau, Holger Guzman RN RN 7 Nargis Moran 3 Corrections: (The following items were deleted from the chart) 11/20 11:38 11:37 BP 88 / 59; Pulse 103bpm; Resp 16bpm; Spontaneous; Pulse Ox 100% 4 lpm Nasal iw Cannula; iw 12:32 11:03 BP 84 / 46; Pulse 103bpm; Resp 28bpm; Pulse Ox 100% Non-rebreather mask; [place] [id number] 13:12 13:11 Reassessment: Levophed increased to 8 mcg/min [place] [id number] 13:30 13:29 Reassessment: 2nf Liter NS bolus started per Dr. Johnson, BP up to 120/51, family iw at bedside, pt awake, talking with family, no new episodes of black tarry stool iw
[2017-11-20] MEDS ORDERED: ACETAMINOPHEN 500 MG TAB PO PRN (13:24)
[2017-11-20] MEDS ORDERED: ONDANSETRON 4 MG/2 ML VIAL IV PRN (13:24)
[2017-11-20] MEDS ORDERED: PANTOPRAZOLE INJ 80 MG in NA CHLORIDE 0.9% 250 ML IV SCH ×4 (14:00)
[2017-11-20] MEDS ORDERED: D5 0.45 NS 1,000 ML IV SCH (14:00)
[2017-11-20] MEDS ORDERED: CEFTRIAXONE/SWI 1gm 1 GM/10 ML SYR IVP SCH ×2 (14:00→21:00)
[2017-11-20] MEDS ORDERED: NA CHLORIDE 0.9% 1,000 ML ONE ×2 (14:20→16:46)
--- NOTE | 2017-11-20 14:35 | RAD REPORT ---
EXAM DESCRIPTION: CT - Abdomen Pelvis Wo Contrast - 11/20/2017 2:13 pm CLINICAL HISTORY: Abdominal pain, foul smelling diarrhea COMPARISON: CT August 30 ; CT September 2016 TECHNIQUE: Axial [address] imaging of the abdomen and pelvis was performed without IV contrast. No IV contrast was given because of allergy, abnormal renal function, patient refusal or physician re quest. No oral contrast given. All CT scans are performed using dose optimization technique as appropriate and may include automated exposure control or mA/KV adjustment according to patient size. FINDINGS: Small to moderate bilateral pleural effusions are present, larger on the left, incompletel y imaged. No pericardial thickening or effusion. Hiatal hernia is present with approximately 20% of t he stomach intrathoracic. No focal liver lesion identifiable. There is a nodular liver contour. The pneumobilia seen in August s not present on the current examination. No focal splenic abnormality. No focal pancreatic mass or a cute peripancreatic process suspected. Biliary tree is not dilated. No hydronephrosis and no obstructing or nonobstructing calculi of either kidney. A 2.2 cm oval mixed attenuation mass at the lower pole of the left kidney has not changed back to September 2016. No significant adrenal finding. Isodense renal masses and pyelonephritis cannot be excluded in the ab sence of IV contrast. Urinary bladder is fully contracted around a Martinez catheter. Uterus is absent. Ovaries are absent or atrophic. Gastric dumont are mildly prominent believed to be due to contracted state. No dilated small bowel loo ps. Colon is grossly abnormal. There is a very prominent circumferential wall thickening and edema throug hout the colon. This is more pronounced on the right. Wall thickening is less pronounced in the sigmo id colon. Rectosigmoid anastomotic site shows no acute component. Free intraperitoneal air is present. This is collecting primary along the nondependent portion of the peritoneal cavity. There is free air present surrounding the herniated portion of the stomach in the middle mediastinum. No pneumatosis. Small quantity of free intraperitoneal fluid is present. No misty ia, mass or bulky lymphadenopathy. Disc and bony degenerative changes are present. No pathologic bone process. Small amount of retained fluid or edema in the subcutaneous fatty tissues. IMPRESSION: Free intraperitoneal air is present relatively small in quantity collecting along the an terior margin of the peritoneal cavity. Patient has a hiatal hernia with approximately 20% of the stomach intrathoracic. There is free air [place] rrounding the herniated portion of the stomach near the GE junction. Very pronounced circumferential wall thickening and edema throughout the colon with relative sparing of the sigmoid colon. Small to moderate bilateral pleural effusions. Source for the free air is not definitive. Greatest concentration is near the GE junction where there could be a small tear of the esophagus or stomach. Ulceration would be possible. Leakage of air near the rectosigmoid anastomosis would be an additional possibility. Perforation elsewhere in the colon would be possible. A C difficile or other infectious colitis etiol ogy would be possible. Ischemic etiology is a consideration as well. Full assessment is limited is the absence of IV contrast.
[2017-11-20] MEDS ORDERED: METRONIDAZOLE 500mg IVPB 500 MG/100 ML BAG IV ONE (15:21)
--- NOTE | 2017-11-20 15:39 | RAD REPORT ---
EXAM DESCRIPTION: CT - Head Brain Wo Cont - 11/20/2017 3:08 pm CLINICAL HISTORY: Headache, altered mental status COMPARISON: None. TECHNIQUE: Axial 5 mm thick images of the head were obtained without IV contrast. All CT scans are performed using dose optimization technique as appropriate and may include automated exposure control or mA/KV adjustment according to patient size. FINDINGS: No intracranial hemorrhage, mass, edema or shift of mid-line structures. No acute cortical based infarction. No cortical edema or sulcal effacement. Mild to moderate atrophy and mild chronic ischemic changes are present. No abnormal extra-axial fluid collections. Ventricles are in proportion to volume loss. Arterial and physiologic calcifications present. Mastoid air cells and visualized portions of the paranasal sinuses are clear. No acute bony findings. IMPRESSION: Mild to moderate atrophy and chronic ischemic change. No acute intracranial finding.
[2017-11-20] MEDS ORDERED: NOREPINEPHRINE 4mg/D5W 250mL 4 MG/250 ML BAG IV ONE (16:09)
[2017-11-20 17:47] VITALS: TEMP 98.8
[2017-11-20 17:49] VITALS: BP 100/43; O2SAT 98
[2017-11-21] MEDS ORDERED: VANCOMYCIN 1GM/D5W 1 GM/200 ML BAG IV SCH (01:00)
[2017-11-21] MEDS ORDERED: VANCOMYCIN 1 GM/250 ML BAG IV SCH (09:00)
== END 2017-11-20 17:12 | disposition short-term general hospital (02) ==
LOC: ER 09:59 → UNDOADMIN 13:22 → ERHOLD 13:22 → ER 17:12
PROC: 06HM33Z Insertion of Infusion Device into Right Femoral Vein, Percutaneous Approach (ICD-10-PCS; principal; 2017-11-20)
DX: K52.89 Other specified noninfective gastroenteritis and colitis (principal); K63.1 Perforation of intestine (nontraumatic); D64.9 Anemia, unspecified; K62.5 Hemorrhage of anus and rectum; I10 Essential (primary) hypertension; I25.2 Old myocardial infarction; Z88.2 Allergy status to sulfonamides; Z88.5 Allergy status to narcotic agent; Z88.7 Allergy status to serum and vaccine; Z88.8 Allergy status to other drugs, medicaments and biological substances
CPT/HCPCS: 36415; 36556; 70450; 71045; 74176; 80048; 80076; 81003; 82272; 82550; 82553; 83605; 83735; 83880; 84145; 84484; 85025; 85610; 85652; 85730; 86140; 86850; 86900; 86901; 87040 ×2; 87086; 87088; 93005; C9113 ×2; J0696; J1265; J2405; J3010; J3370; J7030 ×3; J7060; Q9967; 87077; 87186; 96361; 96365; 96366; 96367; 96375; 99291; 99292

== ENCOUNTER 2017-12-11 23:48 | Inpatient (IN) | payer OTHER ==
[2017-12-12] MEDS ORDERED: D50W 25 GM/50 ML SYRINGE IV ONE (00:03)
[2017-12-12 00:45] LABS: Absolute Lymphocytes (CBC) 0.2 K/uL (0.7-4.9); Absolute Monocytes 0.8 K/uL (0.1-1.3); Absolute Neutrophil 7.3 K/uL (1.8-8.0); Basophils % 0.4 % (0-1.3); Eosinophils % 0.2 % (0-4.4); Hematocrit 26.6 % (36.0-45.0); Lymphocytes % 2.5 % (15.3-44.8); MCH 28.9 pg (27.0-35.0); MCV 88.5 fL (80-100); MPV 9.7 fL (7.6-11.3); Monocytes % 9.5 % (3.3-12.3)
[2017-12-12] MEDS ORDERED: NA CHLORIDE 0.9% 1,000 ML ONE (00:57)
[2017-12-12 01:02] LABS: ALT/SGPT 23 U/L (12-78); AST/SGOT 43 U/L (15-37); Albumin 1.6 g/dL (3.4-5.0); Alkaline Phosphatase 682 U/L (45-117); BUN Blood Urea Nitrogen 32 mg/dL (7-18); Bicarbonate 28 mmol/L (21-32); Bilirubin Direct 0.1 mg/dL (0-0.2); Bilirubin Total 0.3 mg/dL (0.2-1.0); CKMB Creatine Kinase MB 1.5 ng/mL (0.3-3.6); Creatine Phosphokinase 17 U/L (26-192); Glucose Level 101 mg/dL (74-106); Lipase 118 U/L (73-393); Potassium 4.3 mmol/L (3.5-5.1); Protein, Total 5.3 g/dL (6.4-8.2); Sodium Level 149 mmol/L (136-145)
[2017-12-12 01:17] LABS: Arterial Blood Carboxyhemoglob 1.5 % (0-1.5); Blood Gas Oxyhemoglobin 92.1 % (94-97); Blood O2 Saturation 94.4 % (92-98.5)
[2017-12-12 01:26] LABS: Blood Morphology Comment NOT SEEN (NOT SEEN); Platelet Estimate ADEQ
[2017-12-12 01:58] LABS: Protime INR 1.18
[2017-12-12] MEDS ORDERED: VANCOMYCIN 1 GM/250 ML BAG ONE (02:08)
[2017-12-12] MEDS ORDERED: CEFEPIME 1 GM/100 ML BAG IV ONE (02:08)
[2017-12-12 02:11] LABS: Urine Blood NEGATIVE (NEG); Urine Glucose NEGATIVE (NEG); Urine Protein 2+ (NEG); Urine pH 5.5 (5.0-7.0)
--- NOTE | 2017-12-12 04:17 | ER ---
Nurse's Notes [facility] Name: Lainey Johnson Age: 87 yrs Sex: Female : 1930 Arrival Date: 12/12/2017 Time: 00:17 Bed 3 Private MD: Diagnosis: Altered mental status, unspecified;Anemia, unspecified;Type 1 diabetes mellitus;Left sided colitis-pancolitis;Ascites;Edema, unspecified Presentation: 12/12 00:18 Presenting complaint: EMS states: Per [facility] staff, patient not responding to lp1 questions, eyes closed, recently discharged from hospital; On arrival of EMS, O2 sat at 84% on RA, blood sugar of 20 en route to ED, unable to obtain IV access. Transition of care: patient was received from another setting of care (long-term care [facility]), [facility]. Onset of symptoms was December 11, 2017 at 23:30. Risk Assessment: Do you want to hurt yourself or someone else? Patient reports no desire to harm self or others. Initial Sepsis Screen: Does the patient meet any 2 criteria? No. Patient's initial sepsis screen is negative. Does the patient have a suspected source of infection? No. Patient's initial sepsis screen is negative. Care prior to arrival: Glucose check: 20 Oxygen administered. via a nebulizer mask. 00:18 Method Of Arrival: EMS: [facility] lp1 00:18 Acuity: BRIANA 2 lp1 Historical: - Allergies: 00:41 metformin; lp1 00:41 Morphine; lp1 00:41 Lyrica; lp1 00:41 Sulfa (Sulfonamide Antibiotics); lp1 00:41 Tetanus Vaccines \T\ Toxoid; lp1 00:41 CHLORINE; lp1 - Home Meds: 00:41 aspirin 81 mg Oral TbEC 1 tab once daily [Active]; atorvastatin 10 mg oral tab 1 tab lp1 once daily [Active]; cranberry 400 mg oral cap 200 mg daily [Active]; Flomax 0.4 mg Oral cp24 1 cap once daily [Active]; gabapentin 300 mg oral cap nightly [Active]; Plavix 75 mg Oral tab 1 tab once daily [Active]; Zyloprim 100 mg Oral tab 1 tab once daily [Active]; Lactobacillus acidophilus oral cap twice a day [Active]; Lantus 100 unit/mL Sub-Q soln 35 unit twice a day [Active]; Lopressor 12.5 mg Oral tab twice a day [Active]; Protonix 40 mg Oral TbEC 1 tab 2 times per day [Active]; Requip 2 mg Oral tab twice a day [Active]; meclizine 25 mg Oral tab 1 tab 3 times per day [Active]; Humalog 100 unit/mL Sub-Q soln 5 unit four times a day [Active]; acetaminophen 325 mg Oral tab 2 tabs every 6 hours for Pain [Active]; Lasix 40 mg Oral tab 1 tab once daily [Active]; tramadol 50 mg Oral tab 2 tabs every 8 hours [Active]; acetaminophen-codeine 300-30 mg Oral tab 1 tab every 6 hours [Active]; - PMHx: 00:41 Enterocolitis; Hypertension; Atrial Fib; pulmonary edema; DYSPHAGIA; Diabetes - IDDM; lp1 Depression; ATHEROSCLEROSIS; GERD; Anemia; CAD; C-diff; Gout; High Cholesterol; Myocardial infarction; restless leg syndrome; - PSHx: 00:41 Unable to obtain; lp1 - Immunization history:: Adult Immunizations up to date. - Social history:: Smoking status: unknown. - Ebola Screening: : No symptoms or risks identified at this time. Screenin:41 Abuse screen: Denies threats or abuse. Denies injuries from another. Nutritional lp1 screening: No deficits noted. Tuberculosis screening: No symptoms or risk factors identified. Fall Risk Total Marrero Fall Scale indicates High Risk Score (45 or more points). Fall prevention measures have been instituted. Side Rails Up X 2 Frequent Obs/Assessments Occuring As available patient and family educated on Fall Prevention Program and Strategies. Assessment: 00:30 General: Appears ill, obese, Behavior is unresponsive. Pain: Unable to use pain scale. lp1 Patient is disoriented. Patient is unresponsive. Neuro: Level of Consciousness is Responsive to painful stimuli . Pupils are PERRLA. Cardiovascular: Capillary refill < 3 seconds in bilateral fingers toes Edema pitting to right arm, right hand, left arm, left hand. Respiratory: Airway is patent Trachea midline Respiratory effort is even, Respiratory pattern is regular, Breath sounds are clear bilaterally. GI: Abdomen is round distended, PEG tube in place, clamped. drain noted to left side of abdomen, parveen noted to midline of abdomen. : No deficits noted. EENT: No deficits noted. Derm: Skin is fragile, is thin, with poor turgor Skin is dry, Skin is pale, Skin temperature is cool. Musculoskeletal: Swelling present in right arm and left arm. 02:14 Reassessment: patient in CT. mg2 02:45 Reassessment: Patient returned from CT at this time; eyes closed, respirations lp1 unlabored; responsive on painful stimulil; daughter in law at bedside. 03:00 Reassessment: daughter in law signed the informed consent for blood transfusion. mg2 04:06 Reassessment: Patient appears in no apparent distress at this time. Patient and/or mg2 family updated on plan of care and expected duration. Pain level reassessed. Patient is alert, oriented x 3, equal unlabored respirations, skin warm/dry/pink. Vital Signs: 00:10 BP 112 / 63; Pulse 98; Resp 19; Temp 97.1(A); Pulse Ox 94% on 2 lpm NC; Weight 104.33 lp1 kg; 00:45 BP 105 / 60; Pulse 95; Resp 19; Pulse Ox 97% on 2 lpm NC; lp1 01:00 BP 111 / 54; Pulse 93; Resp 15; Pulse Ox 96% on 2 lpm NC; lp1 01:15 BP 91 / 48; Pulse 91; Resp 20; Pulse Ox 99% on 2 lpm NC; lp1 01:45 BP 92 / 46; Pulse 90; Resp 20; Pulse Ox 99% on 2 lpm NC; lp1 02:15 BP 92 / 43; Pulse 90; Resp 18; Pulse Ox 99% on 3 lpm NC; Pain 0/10; mg2 02:45 BP 129 / 53; Pulse 87; Resp 22; Pulse Ox 97% on 2 lpm NC; lp1 04:01 BP 120 / 47; Pulse 95; Resp 18; Pulse Ox 98% on 2 lpm NC; Pain 0/10; lp1 04:30 BP 107 / 51; Pulse 94; Resp 17; Pulse Ox 93% on 2 lpm NC; lp1 05:00 BP 110 / 50; Pulse 98; Resp 18; Pulse Ox 96% on 2 lpm NC; lp1 05:00 lp1 06:10 BP 116 / 58; Pulse 85; Resp 18; Temp 96.8; Pulse Ox 96% on 2 lpm NC; Pain 0/10; mg2 05:00 See Blood Transfusion flowsheet for further vitals lp1 ED Course: 00:00 Inserted saline lock: 22 gauge in right antecubital area, using aseptic technique. By lp1 susan Calixto. 00:00 EKG done, by ED staff, reviewed by Lane Camara MD. lp1 00:17 Patient arrived in ED. ao 00:18 Lane Camara MD is Attending Physician. pamela 00:22 Triage completed. lp1 00:22 Arm band placed on left wrist. lp1 00:25 Patient has correct armband on for positive identification. Placed in gown. Side rails lp1 up X2. lunchroom monitor on. Pulse ox on. NIBP on. 00:33 X-ray completed. Portable x-ray completed in exam room. Patient tolerated procedure kw well. 00:36 XRAY Chest (1 view) In Process Unspecified. EDMS 02:03 Ortega Garrett, IRIS is Primary Nurse. mg2 02:15 Assisted provider with central line placement. Set up central line tray. in right mg2 femoral. Line placed by Lane Camara MD Placement verified by blood return, Dressed with Tegaderm, Blood was collected. Patient tolerated Was procedure site sterilized? Yes, with chlorhexidine. Was the site allowed to dry? Yes. Was local anesthetic and/or sedation utilized? Yes. During the procedure, did the Practitioner(s) maintain a sterile field? Were unused ports clamped during insertion? Yes. Was blood aspirated from each lumen? Yes. After the procedure, did the Practitioner(s) clean the site and apply a sterile dressing?. Urine collected: Martinez catheter specimen, cloudy, Amount Returned: 100mL. 02:29 CT Traumagram (Head C Spine CAP W Con) In Process Unspecified. EDMS 03:08 CT completed. Patient tolerated procedure well. Patient moved to CT via stretcher. Patient moved back from [place]. 04:13 Sisi Leary MD is Hospitalizing Provider. pamela 05:19 Patient admitted, IV remains in place. lp1 Administered Medications: 00:05 Drug: D50W 50 ml Route: IVP; Site: right antecubital; lp1 00:52 Follow up: Response: Blood sugar is elevated lp1 00:55 Drug: NS 0.9% 500 ml Route: IV; Rate: bolus; Site: right antecubital; lp1 01:39 Follow up: IV Status: Completed infusion; IV Intake: 500ml lp1 01:38 Drug: NS 0.9% 1000 ml Route: IV; Rate: 125 ml/hr; Site: right antecubital; lp1 05:25 Follow up: IV Status: Infusion continued upon admission lp1 02:42 Drug: Cefepime 1 grams Route: IVPB; Rate: 200 ml/hr; Infused Over: 30 mins; Site: right mg2 femoral; 03:35 Follow up: Response: No adverse reaction; IV Status: Completed infusion mg2 02:43 Drug: vancoMYCIN 1 grams Route: IVPB; Infused Over: 2 hrs; Site: right femoral; mg2 05:00 Follow up: IV Status: Completed infusion lp1 04:47 Drug: Flagyl 500 mg Volume: 100 ml; Route: IVPB; Rate: 200 ml/hr; Infused Over: 30 mg2 mins; Site: right femoral; 05:47 Follow up: Response: No adverse reaction; IV Status: Completed infusion mg2 05:05 Drug: Tylenol Suppository 650 mg Route: AR; lp1 05:21 Follow up: Response: No adverse reaction; medicated prior to blood transfusion lp1 05:05 Drug: Benadryl 12.5 mg Route: IVP; Site: right femoral; lp1 05:22 Follow up: Response: No adverse reaction; Medicated prior to blood transfusion lp1 Point of Care Testing: Blood Glucose: 00:00 Blood Glucose: Low (<40 mg/dL); lp1 00:19 Blood Glucose: 124 mg/dL; lp1 Ranges: Intake: 01:39 IV: 500ml; Total: 500ml. lp1 Outcome: 04:16 Decision to Hospitalize by Provider. pamela 05:19 critical lp1 05:19 Instructed on the need for admit, to daughter in law 06:15 Admitted to ICU accompanied by nurse, accompanied by tech, family with patient, via mg2 stretcher, room 1, with oxygen, on monitor, with chart, Report called to IRIS Worrell 06:15 critical 06:15 Instructed on the need for admit. 06:26 Patient left the ED. mg2 Signatures: Dispatcher [employer] EDMS Lane Camara MD MD cha Hagler, Ervin eh Whitley, Kimberlee kw Pena, Laura, RN RN lp1 Winchester, Filipe, RN RN ao Gardose, Ortega, RN RN mg2 Corrections: (The following items were deleted from the chart) 00:27 00:22 BP 112 / 63; Pulse 98bpm; Resp 19bpm; Pulse Ox 94% 2 lpm Nasal Cannula; Temp lp1 97.1F Axillary; 104.33 kg; lp1
--- NOTE | 2017-12-12 04:17 | EDPHYS ---
Physician Documentation [facility] Name: Lainey Johnson Age: 87 yrs Sex: Female : 1930 Arrival Date: 12/12/2017 Time: 00:17 Bed 3 Private MD: ED Physician Lane Camara HPI: 12/12 00:50 This 87 yrs old Female presents to ER via EMS with complaints of Altered pamela Mental Status. 00:50 The patient presents with confusion, decreased mental status, decreased responsiveness. pamela Onset: The symptoms/episode began/occurred just prior to arrival, 1 week(s) ago. Possible causes: unknown. Associated signs and symptoms: The patient has no apparent associated signs or symptoms. Patient's baseline: Neuro: alert but confused. The patient has not experienced similar symptoms in the past. Historical: - Allergies: 00:41 metformin; lp1 00:41 Morphine; lp1 00:41 Lyrica; lp1 00:41 Sulfa (Sulfonamide Antibiotics); lp1 00:41 Tetanus Vaccines \T\ Toxoid; lp1 00:41 CHLORINE; lp1 - Home Meds: 00:41 aspirin 81 mg Oral TbEC 1 tab once daily [Active]; atorvastatin 10 mg oral tab 1 tab lp1 once daily [Active]; cranberry 400 mg oral cap 200 mg daily [Active]; Flomax 0.4 mg Oral cp24 1 cap once daily [Active]; gabapentin 300 mg oral cap nightly [Active]; Plavix 75 mg Oral tab 1 tab once daily [Active]; Zyloprim 100 mg Oral tab 1 tab once daily [Active]; Lactobacillus acidophilus oral cap twice a day [Active]; Lantus 100 unit/mL Sub-Q soln 35 unit twice a day [Active]; Lopressor 12.5 mg Oral tab twice a day [Active]; Protonix 40 mg Oral TbEC 1 tab 2 times per day [Active]; Requip 2 mg Oral tab twice a day [Active]; meclizine 25 mg Oral tab 1 tab 3 times per day [Active]; Humalog 100 unit/mL Sub-Q soln 5 unit four times a day [Active]; acetaminophen 325 mg Oral tab 2 tabs every 6 hours for Pain [Active]; Lasix 40 mg Oral tab 1 tab once daily [Active]; tramadol 50 mg Oral tab 2 tabs every 8 hours [Active]; acetaminophen-codeine 300-30 mg Oral tab 1 tab every 6 hours [Active]; - PMHx: 00:41 Enterocolitis; Hypertension; Atrial Fib; pulmonary edema; DYSPHAGIA; Diabetes - IDDM; lp1 Depression; ATHEROSCLEROSIS; GERD; Anemia; CAD; C-diff; Gout; High Cholesterol; Myocardial infarction; restless leg syndrome; - PSHx: 00:41 Unable to obtain; lp1 - Immunization history:: Adult Immunizations up to date. - Social history:: Smoking status: unknown. - Ebola Screening: : No symptoms or risks identified at this time. ROS: 00:51 Constitutional: Negative for fever, chills, and weight loss, Eyes: Negative for injury, pamela pain, redness, and discharge, ENT: Negative for injury, pain, and discharge, Neck: Negative for injury, pain, and swelling, Cardiovascular: Negative for chest pain, palpitations, and edema, Back: Negative for injury and pain, : Negative for injury, bleeding, discharge, and swelling, Psych: Negative for depression, anxiety, suicide ideation, homicidal ideation, and hallucinations, Allergy/Immunology: Negative for hives, rash, and allergies, Endocrine: Negative for neck swelling, polydipsia, polyuria, polyphagia, and marked weight changes, Hematologic/Lymphatic: Negative for swollen nodes, abnormal bleeding, and unusual bruising. 00:51 Respiratory: Positive for shortness of breath. 00:51 Abdomen/GI: Positive for abdominal distension. 00:51 Skin: Positive for pallor. Exam: 00:51 Constitutional: This is a well developed, well nourished patient who is awake, alert, pamela and in no acute distress. Head/Face: Normocephalic, atraumatic. Eyes: Pupils equal round and reactive to light, extra-ocular motions intact. Lids and lashes normal. Conjunctiva and sclera are non-icteric and not injected. Cornea within normal limits. Periorbital areas with no swelling, redness, or edema. Neck: Trachea midline, no thyromegaly or masses palpated, and no cervical lymphadenopathy. Supple, full range of motion without nuchal rigidity, or vertebral point tenderness. No Meningismus. Chest/axilla: Normal chest wall appearance and motion. Nontender with no deformity. No lesions are appreciated. Cardiovascular: Regular rate and rhythm with a normal S1 and S2. No gallops, murmurs, or rubs. Normal PMI, no JVD. No pulse deficits. Abdomen/GI: Soft, non-tender, with normal bowel sounds. No distension or tympany. No guarding or rebound. No evidence of tenderness throughout. Back: No spinal tenderness. No costovertebral tenderness. Full range of motion. Psych: Awake, alert, with orientation to person, place and time. Behavior, mood, and affect are within normal limits. 00:51 Respiratory: moderate respiratory distress is noted, Breath sounds: rhonchi, + upper airway congestion. 00:51 Musculoskeletal/extremity: Circulation is intact in all extremities. Compartment Syndrome exam of affected extremity: is normal. 00:51 Neuro: Orientation: unable to test, Mentation: slow to respond, confused, Cranial nerves: is grossly normal based on the patient's age, Motor: moves all fours, Gait: not tested. Deep tendon reflexes are 1 (trace) + in the bilateral brachioradialis, bicep, tricep and patellar and Achilles tendons, Babinski testing is normal, seizure activity, is not displayed by the patient. Vital Signs: 00:10 BP 112 / 63; Pulse 98; Resp 19; Temp 97.1(A); Pulse Ox 94% on 2 lpm NC; Weight 104.33 lp1 kg; 00:45 BP 105 / 60; Pulse 95; Resp 19; Pulse Ox 97% on 2 lpm NC; lp1 01:00 BP 111 / 54; Pulse 93; Resp 15; Pulse Ox 96% on 2 lpm NC; lp1 01:15 BP 91 / 48; Pulse 91; Resp 20; Pulse Ox 99% on 2 lpm NC; lp1 01:45 BP 92 / 46; Pulse 90; Resp 20; Pulse Ox 99% on 2 lpm NC; lp1 02:15 BP 92 / 43; Pulse 90; Resp 18; Pulse Ox 99% on 3 lpm NC; Pain 0/10; mg2 02:45 BP 129 / 53; Pulse 87; Resp 22; Pulse Ox 97% on 2 lpm NC; lp1 04:01 BP 120 / 47; Pulse 95; Resp 18; Pulse Ox 98% on 2 lpm NC; Pain 0/10; lp1 04:30 BP 107 / 51; Pulse 94; Resp 17; Pulse Ox 93% on 2 lpm NC; lp1 05:00 BP 110 / 50; Pulse 98; Resp 18; Pulse Ox 96% on 2 lpm NC; lp1 05:00 lp1 06:10 BP 116 / 58; Pulse 85; Resp 18; Temp 96.8; Pulse Ox 96% on 2 lpm NC; Pain 0/10; mg2 05:00 See Blood Transfusion flowsheet for further vitals lp1 Procedures: 01:50 Central Line: the site was prepped with Betadine, in sterile fashion, a triple lumen [facility] catheter was inserted, in the right femoral vein, in 3 attempts. placement was verified, by blood return, the site was dressed with using sterile technique, the patient tolerated the procedure, well. MDM: 00:18 Patient medically screened. [facility] 00:59 Data reviewed: vital signs, nurses notes, lab test result(s), EKG, radiologic studies, [facility] CT scan, plain films. 12/12 00:29 Order name: Basic Metabolic Panel [facility] 12/12 00:29 Order name: CBC with Diff; Complete Time: 01:48 [facility] 12/12 00:29 Order name: Ckmb [facility] 12/12 00:29 Order name: CPK; Complete Time: 01:48 [facility] 12/12 00:29 Order name: LFT's; Complete Time: 01:48 [facility] 12/12 00:29 Order name: Magnesium; Complete Time: 01:48 [facility] 12/12 00:29 Order name: PT-INR; Complete Time: 02:54 [facility] 12/12 00:29 Order name: Ptt, Activated; Complete Time: 02:54 [facility] 12/12 00:29 Order name: Troponin (emerg Dept Use Only); Complete Time: 01:48 [facility] 12/12 00:29 Order name: Blood Culture Adult (2) [facility] 12/12 00:29 Order name: Lipase; Complete Time: 01:48 [facility] 12/12 00:29 Order name: Urine Culture [facility] 12/12 00:31 Order name: Basic Metabolic Panel; Complete Time: 01:48 [facility] 12/12 00:31 Order name: CKMB Creatine Kinase MB; Complete Time: 01:48 [facility] 12/12 00:29 Order name: XRAY Chest (1 view) [facility] 12/12 00:55 Order name: Type And Screen [facility] 12/12 00:55 Order name: AMMONIA; Complete Time: 02:54 [facility] 12/12 00:59 Order name: ABG; Complete Time: 01:48 [facility] 12/12 01:05 Order name: Manual Differential; Complete Time: 01:48 [facility] 12/12 01:54 Order name: CT Traumagram (Head C Spine CAP W Con) [facility] 12/12 02:02 Order name: Urine Dipstick--Ancillary (enter results); Complete Time: 02:54 12/12 02:20 Order name: Packed RBC Leukored -1 [facility] 12/12 02:20 Order name: Bb Add On 12/12 04:11 Order name: Stool Culture [facility] 12/12 04:11 Order name: Fecal Leukocyte Stain [facility] 12/12 04:11 Order name: CDIFF [facility] 12/12 00:29 Order name: EKG; Complete Time: 00:31 [facility] 12/12 00:29 Order name: Cardiac monitoring; Complete Time: 00:52 [facility] 12/12 00:29 Order name: EKG - Nurse/Tech; Complete Time: 00:52 [facility] 12/12 00:29 Order name: IV Saline Lock; Complete Time: 00:52 [facility] 12/12 00:29 Order name: Labs collected and sent; Complete Time: 00:53 [facility] 12/12 00:29 Order name: O2 Per Protocol; Complete Time: 00:52 [facility] 12/12 00:29 Order name: O2 Sat Monitoring; Complete Time: 00:52 [facility] 12/12 00:29 Order name: Urine Dipstick-Ancillary (obtain specimen); Complete Time: 02:04 [facility] 12/12 00:50 Order name: Martinez; Complete Time: 02:03 [facility] 12/12 01:49 Order name: Transfuse; Complete Time: 05:25 [facility] 12/12 04:22 Order name: CONS Physician Consult [facility] 12/12 04:23 Order name: CONS Physician Consult [facility] Administered Medications: 00:05 Drug: D50W 50 ml Route: IVP; Site: right antecubital; lp1 00:52 Follow up: Response: Blood sugar is elevated lp1 00:55 Drug: NS 0.9% 500 ml Route: IV; Rate: bolus; Site: right antecubital; lp1 01:39 Follow up: IV Status: Completed infusion; IV Intake: 500ml lp1 01:38 Drug: NS 0.9% 1000 ml Route: IV; Rate: 125 ml/hr; Site: right antecubital; lp1 05:25 Follow up: IV Status: Infusion continued upon admission lp1 02:42 Drug: Cefepime 1 grams Route: IVPB; Rate: 200 ml/hr; Infused Over: 30 mins; Site: right mg2 femoral; 03:35 Follow up: Response: No adverse reaction; IV Status: Completed infusion mg2 02:43 Drug: vancoMYCIN 1 grams Route: IVPB; Infused Over: 2 hrs; Site: right femoral; mg2 05:00 Follow up: IV Status: Completed infusion lp1 04:47 Drug: Flagyl 500 mg Volume: 100 ml; Route: IVPB; Rate: 200 ml/hr; Infused Over: 30 mg2 mins; Site: right femoral; 05:47 Follow up: Response: No adverse reaction; IV Status: Completed infusion mg2 05:05 Drug: Tylenol Suppository 650 mg Route: CA; lp1 05:21 Follow up: Response: No adverse reaction; medicated prior to blood transfusion lp1 05:05 Drug: Benadryl 12.5 mg Route: IVP; Site: right femoral; lp1 05:22 Follow up: Response: No adverse reaction; Medicated prior to blood transfusion lp1 Point of Care Testing: Blood Glucose: 00:00 Blood Glucose: Low (<40 mg/dL); lp1 00:19 Blood Glucose: 124 mg/dL; lp1 Ranges: Critical Glucose Levels:Adult <50 mg/dl or >400 mg/dl <40 mg/dl or >180 mg/dl Disposition: 12/12/17 04:16 Hospitalization ordered by Sisi Leary for Inpatient Admission. Preliminary diagnosis are Altered mental status, unspecified, Anemia, unspecified, Type 1 diabetes mellitus, Left sided colitis - pancolitis, Ascites, Edema, unspecified. - Bed requested for Intensive Care Unit. - Status is Inpatient Admission. mg2 - Condition is Serious. - Problem is new. - Symptoms have improved. UTI on Admission? No Signatures: Dispatcher [employer] EDMS Georgina Castillo RN RN mw Anderson, Corey, MD MD cha Pena, Laura, RN RN lp1 Leesa Molina Michele, RN RN mg2 Corrections: (The following items were deleted from the chart) 02:29 00:50 Head C Spine Cap Wo Con+CT.RAD.BRZ ordered. EDMS EDMS 04:19 04:16 Hospitalization Ordered by Sisi Leary MD for Inpatient Admission. Preliminary mw diagnosis is Altered mental status, unspecified; Anemia, unspecified; Type 1 diabetes mellitus; Left sided colitis - pancolitis; Ascites; Edema, unspecified. Bed requested for Telemetry/MedSurg (Inpatient). Status is Inpatient Admission. Condition is Serious. Problem is new. Symptoms have improved. UTI on Admission? No. pamela 04:28 04:19 12/12/2017 04:16 Hospitalization Ordered by Sisi Leary MD for Inpatient mw Admission. Preliminary diagnosis is Altered mental status, unspecified; Anemia, unspecified; Type 1 diabetes mellitus; Left sided colitis - pancolitis; Ascites; Edema, unspecified. Bed requested for Telemetry/MedSurg (Inpatient). Status is Inpatient Admission. Condition is Serious. Problem is new. Symptoms have improved. UTI on Admission? No. mw 04:31 04:28 12/12/2017 04:16 Hospitalization Ordered by Sisi Leary MD for Inpatient eb Admission. Preliminary diagnosis is Altered mental status, unspecified; Anemia, unspecified; Type 1 diabetes mellitus; Left sided colitis - pancolitis; Ascites; Edema, unspecified. Bed requested for Intensive Care Unit. Status is Inpatient Admission. Condition is Serious. Problem is new. Symptoms have improved. UTI on Admission? No. mw 06:26 04:31 12/12/2017 04:16 Hospitalization Ordered by Sisi Leary MD for Inpatient mg2 Admission. Preliminary diagnosis is Altered mental status, unspecified; Anemia, unspecified; Type 1 diabetes mellitus; Left sided colitis - pancolitis; Ascites; Edema, unspecified. Bed requested for Intensive Care Unit. Status is Inpatient Admission. Condition is Serious. Problem is new. Symptoms have improved. UTI on Admission? No. eb
[2017-12-12] MEDS ORDERED: GLUCAGON 1 MG/VIAL IM PRN ×2 (04:22→10:25)
[2017-12-12] MEDS ORDERED: D50W 25 GM/50 ML SYRINGE IV PRN ×2 (04:22→10:25)
[2017-12-12] MEDS ORDERED: METRONIDAZOLE 500mg IVPB 500 MG/100 ML BAG IV ONE (04:25)
[2017-12-12] MEDS ORDERED: ACETAMINOPHEN 650MG/RECT SUPP PR ONE (04:57)
[2017-12-12] MEDS ORDERED: DIPHENHYDRAMINE 50 MG/ML VIAL ONE (04:58)
[2017-12-12] MEDS ORDERED: NA CHLORIDE 0.9% 250 ML ONE (05:02)
[2017-12-12] MEDS ORDERED: ONDANSETRON 4 MG/2 ML VIAL IV PRN (05:45)
[2017-12-12] MEDS ORDERED: ACETAMINOPHEN 500 MG TAB PO PRN (05:45)
[2017-12-12] MEDS ORDERED: NA CHLORIDE 0.9% 1,000 ML IV SCH (06:00)
[2017-12-12 06:35] VITALS: BMI 29.7
--- NOTE | 2017-12-12 06:36 | EKG ---
Test Date: 2017-12-11 Test Time: 23:59:06 Main Line Assembler: MEASUREMENT RESULTS: Intervals: Rate: 98 MA: 126 QRSD: 82 QT: 366 QTc: 467 [place]: P: 49 MA: 126 QRS: 46 T: 40 INTERPRETIVE STATEMENTS: Sinus rhythm with premature atrial complexes Otherwise normal ECG Compared to ECG 11/20/2017 11:04:45 Atrial premature complex(es) now present Sinus tachycardia no longer present T-wave abnormality no longer present Electronically Signed On 12-12-17 06:35:59 CDT by Damion Ramsey
--- NOTE | 2017-12-12 07:47 | P.HP ---
Certification for Inpatient Patient admitted to: Inpatient With expected LOS: >2 Midnights Patient will require the following post-hospital care: None Practitioner: I am a practitioner with admitting privileges, knowledge of patient current condition, hospital course, and medical plan of care. Services: Services provided to patient in accordance with Admission requirements found in Title 42 Section 412.3 of the Code of Federal Regulations Patient History Date of Service: 12/12/17 Reason for admission: Altered mental status; hypotension; anemia History of Present Illness: Patient is an 87-year-old female came to the hospital if with hypotension. Patient has been at [facility] for the last few weeks. She was found to have a perforated stomach. Patient required surgical intervention and has a PEG tube as well as what appears to be a J-tube. Patient was sent to [facility] for rehab. Patient just arrived yesterday; however, her blood pressure had been running low and patient appears be short breath and altered. They sent her back to our hospital for further evaluation. Patient was found to be slightly anemic as well as hypotensive. Patient came into the ER and with numerous concerns including GIB, decision was made to admit her to the intensive care unit. Patient has been in the hospital for quiet and extensive stay over the past few weeks. She had improved however not to the point where she appears to be able to participate with therapy. We will go ahead and admit her to the hospital for further evaluation. Allergies Sulfa (Sulfonamide Antibiotics) Allergy (Mild, Verified 08/29/17 21:12) Itching/Hives/Rash metformin Allergy (Verified 08/29/17 21:12) Itching/Hives/Rash morphine Allergy (Verified 08/29/17 21:12) Rash pregabalin [From Lyrica] Allergy (Verified 08/29/17 21:12) Rash Tetanus Vaccines and Toxoid Allergy (Verified 08/29/17 21:12) Itching/Hives/Rash CHLORINE Allergy (Severe, Uncoded 08/29/17 21:12) Anaphylaxis Home Medications: Allopurinol [Zyloprim*] 100 mg PO DAILY 10/03/16 Atorvastatin Calcium [Lipitor*] 10 mg PO BEDTIME 10/03/16 Furosemide [Lasix*] 40 mg PO DAILY 10/03/16 Ropinirole HCl [Requip*] 2 mg PO BID 10/03/16 Acetaminophen with Codeine [Acetaminophen-Cod #3 Tablet] 650 mg PO Q6H PRN 08/29 Aspirin 81 mg PO DAILY 08/29/17 Clopidogrel Bisulfate [Plavix*] 75 mg PO DAILY 08/29/17 Meclizine HCl [Antivert*] 25 mg PO TID PRN 08/29/17 Tamsulosin [Flomax*] 0.4 mg PO DAILY #30 cap 09/03/17 Tramadol HCl [Ultram] 2 tab PO Q8H PRN MDD 300 mg 09/22/17 Cranberry Fruit Extract 200 mg PO TID cap 09/27/17 Gabapentin [Gralise] 300 mg PO DAILY AFTER SUPPER 12/12/17 L. Acidophilus/L.bulgaricus [Lactobacillus Tablet] 1 tab PO BID 12/12/17 Lidocaine 5% Patch [Lidoderm 5% Patch*] 1 patch TOP DAILY 12/12/17 Metoprolol Tartrate [Lopressor] 25 mg PO BID 12/12/17 Nystatin Powder [Mycostatin (Powder)*] TOP BID 12/12/17 Pantoprazole [Protonix Tab] 40 mg PO BID 12/12/17 Scopolamine 1 each TD Q3D 12/12/17 - Past Medical/Surgical History Diabetic: Yes -: Anemia -: CAD -: Depression -: IDDM -: GERD -: Gout -: HLD -: HTN -: NV -: Restless leg syndrome -: Hysterectomy -: Hernia repair -: CABG -: Cardiac stents -: Right leg sx -: Appendectomy -: Cholecystectomy - Family History Mother Medical History: Heart disease Father Medical History: Heart disease Brother Medical History: Heart disease Sister Medical History: Heart disease - Social History Alcohol use: No CD- Drugs: No Caffeine use: No Review of Systems is unable to be obtained Physical Examination - Vital Signs Temperature: 96.8 F Blood Pressure: 116/45 Pulse: 97 Respirations: 12 Pulse Ox (%): 92 - Physical Exam General: Alert, In no apparent distress, Oriented x1 HEENT: Atraumatic, PERRLA, Mucous membr. moist/pink, EOMI, Sclerae nonicteric Neck: Supple, 2+ carotid pulse no bruit, No LAD, Without JVD or thyroid abnormality Respiratory: Diminished, Expiratory wheezes, Rhonchi/gurgles Cardiovascular: Normal S1 S2, Systolic murmur Gastrointestinal: Normal bowel sounds, Soft and benign, Non-distended, No tenderness Musculoskeletal: No clubbing, No swelling, No tenderness Integumentary: No rashes Neurological: Normal gait, Normal speech, Normal strength at 5/5 x4 extr, Normal tone, Sensation intact, Cranial nerves 3-12 intact, Normal affect Lymphatics: No axilla or inguinal lymphadenopathy - Studies Laboratory Data (last 24 hrs) 12/12/17 01:35: PT 14.0 H, INR 1.18, APTT 30.4 12/12/17 00:35: WBC 8.4, Hgb 8.7 L, Hct 26.6 L, Plt Count 308 12/12/17 00:35: Sodium 149 H, Potassium 4.3, BUN 32 H, Creatinine 0.60, Glucose 101, Magnesium 2.0, Total Bilirubin 0.3, AST 43 H, ALT 23, Alkaline Phosphatase 682 H, Lipase 118 Microbiology Data (last 24 hrs): 12/12/17 00:35 Blood - Blood Anaerobic Blood Culture - Final Assessment & Plan - Problems (Diagnosis) (1) Altered mental status Onset Date: 12/12/17 Current Visit: Yes Status: Acute (2) Anemia Onset Date: 12/12/17 Current Visit: Yes Status: Acute Qualifiers: Other causes of anemia: acute posthemorrhagic (3) Gastrointestinal bleed Onset Date: 12/12/17 Current Visit: Yes Status: Acute (4) Coronary artery disease Onset Date: 12/12/17 Current Visit: Yes Status: Chronic Qualifiers: (5) Diabetes Onset Date: 12/12/17 Current Visit: Yes Status: Chronic Qualifiers: (6) Gout Onset Date: 12/12/17 Current Visit: Yes Status: Chronic Qualifiers: (7) HTN (hypertension) Onset Date: 12/12/17 Current Visit: Yes Status: Chronic Qualifiers: (8) Hyperlipidemia Onset Date: 12/12/17 Current Visit: Yes Status: Chronic Qualifiers: (9) Atrial fibrillation with RVR Onset Date: 12/12/17 Current Visit: Yes Status: Resolved (10) S/P partial gastrectomy Onset Date: 12/12/17 Current Visit: Yes Status: Acute - Plan Plan: 1. Monitor H&H; patient is being transfused 1u PRBC because of hypotension and concern for GIB 2. Gentle hydration 3. Cardiology and GI consultation 4. Medication for rate control 5. Pain control 6. Anti emetics 7. Neuro checks q.4 hr 8. PT eval and treatment 9. GI and DVT prophylaxis Discharge Plan: Mcfp Plan to discharge in: Greater than 2 days - Advance Directives Does patient have a Living Will: Yes Does patient have a Durable POA for Healthcare: Yes - Code Status/Comfort Care Code Status Assessed: Yes Code Status: Full Code Critical Care: No Time Spent Managing PTS Care (In Minutes): 50
--- NOTE | 2017-12-12 08:14 | P.CNS ---
Date of Consult: 12/12/17 Reason for Consult: Hypoxemia Chief Complaint: Altered mental status; hypotension; anemia History of Present Illness: Patient is 87 years of age she was at [facility] was discharged yesterday at 6 :00 p.m. she apparently had a perforated ball and has got a PEG tube and jtube. Patient was transferred to [facility] and 11:00 p.m. found altered mental status transfer to the emergency room was found to have hypotension anemia slight hypoxemia has some electrolyte abnormality with hypernatremia currently she is alert oriented responsive cooperative Allergies Sulfa (Sulfonamide Antibiotics) Allergy (Mild, Verified 08/29/17 21:12) Itching/Hives/Rash metformin Allergy (Verified 08/29/17 21:12) Itching/Hives/Rash morphine Allergy (Verified 08/29/17 21:12) Rash pregabalin [From Lyrica] Allergy (Verified 08/29/17 21:12) Rash Tetanus Vaccines and Toxoid Allergy (Verified 08/29/17 21:12) Itching/Hives/Rash CHLORINE Allergy (Severe, Uncoded 08/29/17 21:12) Anaphylaxis Home Medications: Allopurinol [Zyloprim*] 100 mg PO DAILY 10/03/16 Atorvastatin Calcium [Lipitor*] 10 mg PO BEDTIME 10/03/16 Furosemide [Lasix*] 40 mg PO DAILY 10/03/16 Insulin -Regular Human [Novolin -R*] 0 unit SQ SEECOM 10/03/16 Insulin Detemir [Levemir*] 18 unit SQ BEDTIME 10/03/16 Insulin Detemir [Levemir*] 25 unit SQ DAILY 10/03/16 Ropinirole HCl [Requip*] 2 mg PO BID 10/03/16 Acetaminophen with Codeine [Acetaminophen-Cod #3 Tablet] 1 tab PO Q6H PRN Aspirin 81 mg PO DAILY 08/29/17 Clopidogrel Bisulfate [Plavix*] 75 mg PO DAILY 08/29/17 Duloxetine HCl 40 mg PO DAILY 08/29/17 Losartan Potassium 100 mg PO DAILY 08/29/17 Meclizine HCl [Antivert*] 12.5 mg PO TID PRN 08/29/17 Metoprolol Succinate [Toprol Xl] 100 mg PO DAILY 08/29/17 Tamsulosin [Flomax*] 0.4 mg PO DAILY #30 cap 09/03/17 Mirtazapine [Remeron*] 15 mg PO BEDTIME 09/22/17 Tramadol HCl [Ultram] 1 tab PO Q8H 09/22/17 Cranberry Fruit Extract 200 mg PO TID cap 09/27/17 Gabapentin [Gralise] 300 mg PO TID #90 tab.er.24h 09/27/17 Insulin Detemir [Levemir] 18 unit SQ BEDTIME 10/28/17 - Past Medical/Surgical History Diabetic: Yes -: Anemia -: CAD -: Depression -: IDDM -: GERD -: Gout -: HLD -: HTN -: ID -: Restless leg syndrome -: Hysterectomy -: Hernia repair -: CABG -: Cardiac stents -: Right leg sx -: Appendectomy -: Cholecystectomy - Family History Mother Medical History: Heart disease Father Medical History: Heart disease Brother Medical History: Heart disease Sister Medical History: Heart disease - Social History Smoking Status: Unknown if ever smoked Alcohol use: No CD- Drugs: No Caffeine use: No Review of Systems 10-point ROS is otherwise unremarkable General: Weakness Gastrointestinal: Abdominal Pain Physical Examination Temp Pulse Resp BP Pulse Ox 96.8 F 97 H 12 116/45 L 92 12/12/17 07:50 12/12/17 07:50 12/12/17 07:50 12/12/17 07:50 12/12/17 07:50 General: Alert, Oriented x2 HEENT: Atraumatic Neck: Supple Respiratory: Clear to auscultation bilaterally, Diminished (Diminished on the left side some crackles bilaterally) Cardiovascular: No edema, Regular rate/rhythm Gastrointestinal: Normal bowel sounds, Soft and benign, Other (Patient has a J- tube and a PEG tube) Musculoskeletal: No swelling Integumentary: No rashes, No breakdown Neurological: Normal speech Laboratory Data (last 24 hrs) 12/12/17 01:35: PT 14.0 H, INR 1.18, APTT 30.4 12/12/17 00:35: WBC 8.4, Hgb 8.7 L, Hct 26.6 L, Plt Count 308 12/12/17 00:35: Sodium 149 H, Potassium 4.3, BUN 32 H, Creatinine 0.60, Glucose 101, Magnesium 2.0, Total Bilirubin 0.3, AST 43 H, ALT 23, Alkaline Phosphatase 682 H, Lipase 118 - Problems (1) Hypernatremia Current Visit: Yes Status: Acute Plan: Patient is 87 years of age admitted with electrolyte abnormality altered mental status low blood pressure mild anemia change patient to half-normal saline (2) Pleural effusion Current Visit: Yes Status: Acute Plan: Patient appears to have bilateral pleural effusion multi loculated on the left side white count is normal is quite possible that she has an infection of the pleural space currently her vital signs are stable oxygenation satisfactory patient was transfused 2 units of packed red blood cells (3) Respiratory failure Current Visit: Yes Status: Acute Plan: Blood gases show a relative hypoxemia with hypercapnia probably has underlying hypoventilation probably from obesity
--- NOTE | 2017-12-12 08:25 | RAD REPORT ---
EXAM DESCRIPTION: RAD - Chest Single View - 12/12/2017 12:39 am CLINICAL HISTORY: COUGH Chest pain. COMPARISON: Chest Single View dated 11/20/2017; Chest Single View dated 10/28/2017; Chest Single View d ated 09/27/2017; Chest Single View dated 09/22/2017; Head C Spine Cap W Con dated 12/12/2017 FINDINGS: Portable technique limits examination quality. The lungs are grossly clear. Haziness of both lungs, greater on the left probably indicates pleural f luid. The heart is moderately enlarged in size with sternotomy wires present. IMPRESSION: Bilateral pleural fluid suspected.
[2017-12-12] MEDS: ENOXAPARIN 40 MG/0.4 ML SQ SCH (08:30)
[2017-12-12] MEDS: NACHLORIDE 0.45% 1,000 ML IV SCH ×2 (08:30→20:10)
--- NOTE | 2017-12-12 08:43 | RAD REPORT ---
EXAM DESCRIPTION: CT - Head C Spine Cap W Con - 12/12/2017 6:55 am CLINICAL HISTORY: Trauma, head and neck injury. Chest, abdomen and pelvis pain. Drowsiness, unresponsiveness. COMPARISON: Head Brain Wo Cont dated 11/20/2017; Abdomen Pelvis Wo Contrast dated 11/20/2017; Stone Protocol dated 08/30/2017; Abdomen Pelvis W/Wo Contrast dated 11/22/2016 TECHNIQUE: CT head without contrast. CT cervical spine without contrast with coronal and sagittal reformatted images. CT chest, abdomen and pelvis with IV contrast (approximately 100 mL nonionic IV contrast) with houser l and sagittal reformatted images of the spine. All CT scans are performed using dose optimization technique as appropriate and may include automated exposure control or mA/KV adjustment according to patient size. FINDINGS: CT HEAD WITHOUT CONTRAST: No intracranial hemorrhage, hydrocephalus or extra-axial fluid collection. Mild generalized brain atr ophy is present with mild periventricular and deep white matter chronic microvascular ischemic change s. No areas of brain edema or midline shift. The paranasal sinuses and mastoids are clear. The calvarium is intact. CT CERVICAL SPINE WITHOUT CONTRAST: No fracture or subluxation. Prominent multilevel degenerative changes present. Significant C1-2 hyper trophy with erosion of posterior dens is seen. 4 mm degenerative anterolisthesis C4 on 5. 4 mm degene rative anterolisthesis of C5 on 6 seen. The prevertebral soft tissues are normal in thickness. CT CHEST, ABDOMEN, PELVIS WITH CONTRAST: A large multiloculated left pleural effusion is seen. Moderate right pleural effusion is seen, largel y free-flowing. Overall, these findings have progressed since 10/04/2016.Compressive atelectasis is n oted in the left lung and right lung base.No pericardial fluid. No pneumothorax. Colonic inflammatory changes are present compatible with a diffuse colitis. Moderate atherosclerosis is seen. Mild free fluid in the abdomen. 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 No additional significant solid org an abnormality. Mild to moderate anasarca. An acute fracture is not identified. IMPRESSION: Multiloculated left pleural effusion is noted with compressive atelectasis, large in siz e. Moderate right pleural effusion, largely free-flowing. Diffuse colitis pattern is seen which may be infectious or ischemic in etiology. Mild ascites and nikolay sarca is noted. Prominent degenerative cervical spine findings.
[2017-12-12] MEDS ORDERED: CODEINE 30MG/APAP 300MG TAB PO PRN (08:56)
[2017-12-12] MEDS: ALLOPURINOL 100 MG TAB PO SCH (10:35)
[2017-12-12] MEDS: TAMSULOSIN 0.4 MG SR CAP PO SCH (10:36)
[2017-12-12] MEDS: GABAPENTIN 300 MG CAP PO SCH ×3 (10:36→20:09)
[2017-12-12] MEDS: INSULIN -REGULAR HUMAN 50 UNIT/0.5 ML ML SQ SCH ×3 (11:26→21:00)
[2017-12-12 11:36] LABS: BUN Blood Urea Nitrogen 28 mg/dL (7-18); Bicarbonate 29 mmol/L (21-32); Glucose Level 51 mg/dL (74-106); Phosphorus 2.9 mg/dL (2.5-4.9); Potassium 4.7 mmol/L (3.5-5.1); Sodium Level 147 mmol/L (136-145)
[2017-12-12 11:43] LABS: Absolute Lymphocytes (CBC) 0.8 K/uL (0.7-4.9); Absolute Neutrophil 7.9 K/uL (1.8-8.0); Basophils % 0.3 % (0-1.3); Eosinophils % 0.3 % (0-4.4); Hematocrit 31.6 % (36.0-45.0); Lymphocytes % 8.5 % (15.3-44.8); MCH 28.2 pg (27.0-35.0); MCV 89.5 fL (80-100); MPV 9.8 fL (7.6-11.3); Monocytes % 9.9 % (3.3-12.3); RBC Red Blood Cell Count 3.54 M/uL (3.86-4.86)
[2017-12-12] MEDS: ATORVASTATIN 10 MG TAB PO SCH (20:09)
[2017-12-12] MEDS: MIRTAZAPINE 15 MG TAB PO SCH (20:09)
[2017-12-13] MEDS: INSULIN -REGULAR HUMAN 50 UNIT/0.5 ML ML SQ SCH ×4 (07:30→21:06)
[2017-12-13] MEDS: TAMSULOSIN 0.4 MG SR CAP PO SCH (08:28)
[2017-12-13] MEDS: ALLOPURINOL 100 MG TAB PO SCH (08:28)
[2017-12-13] MEDS: GABAPENTIN 300 MG CAP PO SCH ×3 (08:28→21:05)
[2017-12-13] MEDS: ENOXAPARIN 40 MG/0.4 ML SQ SCH (08:29)
[2017-12-13] MEDS ORDERED: metroNIDAZOLE 500 MG TABLET PO SCH (09:00)
--- NOTE | 2017-12-13 12:00 | P.PN ---
Subjective Date of Service: 12/13/17 Primary Care Provider: radha Chief Complaint: Altered mental status; hypotension; anemia Subjective: Improving (Patient is having clear liquid diet. Occasional coughing ) Review of Systems 10-point ROS is otherwise unremarkable Physical Examination - Vital Signs Temperature: 98.2 F Blood Pressure: 120/48 Pulse: 94 Respirations: 18 Pulse Ox (%): 94 - Physical Exam General: Alert, In no apparent distress HEENT: Atraumatic, PERRLA, EOMI Neck: Supple, JVD not distended Respiratory: Clear to auscultation bilaterally, Normal air movement Cardiovascular: Regular rate/rhythm, Normal S1 S2 Gastrointestinal: Normal bowel sounds, No tenderness Musculoskeletal: No tenderness Integumentary: No rashes Neurological: Normal speech, Normal tone, Normal affect Lymphatics: No axilla or inguinal lymphadenopathy - Studies Microbiology Data (last 24 hrs): 12/12/17 00:35 Blood - Blood Anaerobic Blood Culture - Final Assessment & Plan - Problems (Diagnosis) (1) Dysphagia Current Visit: Yes Status: Acute Plan: Patient family at the bedside. Stated she is on nectar thick diet. Will change to that. Will have her seen by speech therapy. Qualifiers: Dysphagia type: oral phase Qualified Code(s): R13.11 - Dysphagia, oral phase (2) Diarrhea Current Visit: Yes Status: Acute Plan: c dif is negative. will cancel flagyl and contact precautions Qualifiers: Diarrhea type: unspecified type Qualified Code(s): R19.7 - Diarrhea, unspecified (3) Altered mental status Onset Date: 12/12/17 Current Visit: Yes Status: Acute Plan: resolving. Will Qualifiers: Altered mental status type: delirium Qualified Code(s): R41.0 - Disorientation, unspecified (4) Acute kidney failure Onset Date: 10/03/16 Current Visit: No Status: Acute Plan: resolved. Will continue to monitor Qualifiers: Acute renal failure type: with acute renal cortical necrosis Qualified Code (s): N17.1 - Acute kidney failure with acute cortical necrosis Discharge Plan: Assisted Plan to discharge in: 24 Hours - Code Status/Comfort Care Code Status Assessed: No Code Status: Full Code Physician Review: Patient Assessed, Agree with Above Assessment and Plan Critical Care: No Time Spent Managing Pts Care (In Minutes): 30
--- NOTE | 2017-12-13 15:22 | RAD REPORT ---
EXAM DESCRIPTION: RAD - Barium Swallow Modified - 12/13/2017 1:53 pm CLINICAL HISTORY: Cough and dysphagia FINDINGS: Fluoroscopic time 1 minute 31 seconds. Eight fluoroscopic spot images were obtained. Aspiration without cough with thin liquid. Marked pharyngeal residue. Pooling of contrast within the valleculae and piriform sinus. The oropharyngeal phase of swallowing is delayed with reduced hyolaryngeal excursion.
[2017-12-13] MEDS: ATORVASTATIN 10 MG TAB PO SCH (21:05)
[2017-12-13] MEDS: MIRTAZAPINE 15 MG TAB PO SCH (21:05)
[2017-12-13] MEDS ORDERED: FUROSEMIDE 40 MG/4 ML VIAL IV ONE (21:20)
[2017-12-14] MEDS: INSULIN -REGULAR HUMAN 50 UNIT/0.5 ML ML SQ SCH ×4 (07:30→21:22)
[2017-12-14 08:05] LABS: Albumin 1.6 g/dL (3.4-5.0); Bilirubin Total 0.4 mg/dL (0.2-1.0); Magnesium 1.7 mg/dL (1.8-2.4); Potassium 4.8 mmol/L (3.5-5.1); Protein, Total 5.5 g/dL (6.4-8.2)
[2017-12-14] MEDS ORDERED: MAGNESIUM SULFATE 1 gm IVPB 1 GM/100 ML BAG IV ONE (08:14)
[2017-12-14] MEDS: TAMSULOSIN 0.4 MG SR CAP PO SCH (09:19)
[2017-12-14] MEDS: FUROSEMIDE 40 MG/4 ML VIAL IV SCH (09:19)
[2017-12-14] MEDS: ENOXAPARIN 40 MG/0.4 ML SQ SCH (09:20)
[2017-12-14] MEDS: GABAPENTIN 300 MG CAP PO SCH ×3 (09:20→21:23)
[2017-12-14] MEDS: ALLOPURINOL 100 MG TAB PO SCH (09:20)
--- NOTE | 2017-12-14 12:39 | P.PN ---
Subjective Date of Service: 12/14/17 Primary Care Provider: radha Chief Complaint: Altered mental status; hypotension; anemia Subjective: No new changes (Patient had some difficultywalking up. Code yellow was called. However the patient woke up) Review of Systems 10-point ROS is otherwise unremarkable (asking for water. However failed the barium swallow) Physical Examination - Vital Signs Temperature: 98 F Blood Pressure: 120/70 Pulse: 95 Respirations: 20 Pulse Ox (%): 97 - Physical Exam General: Alert, In no apparent distress HEENT: Atraumatic, PERRLA, EOMI Neck: Supple, JVD not distended Respiratory: Clear to auscultation bilaterally, Normal air movement Cardiovascular: Regular rate/rhythm, Normal S1 S2 Gastrointestinal: Normal bowel sounds, No tenderness Musculoskeletal: No tenderness Integumentary: No rashes Neurological: Normal speech, Normal tone, Normal affect Lymphatics: No axilla or inguinal lymphadenopathy Assessment & Plan - Problems (Diagnosis) (1) Dysphagia Current Visit: Yes Status: Acute Plan: Patient family at the bedside. Stated she is on nectar thick diet. Will change to that. Will have her seen by speech therapy. Qualifiers: Dysphagia type: oral phase Qualified Code(s): R13.11 - Dysphagia, oral phase (2) Diarrhea Current Visit: Yes Status: Acute Plan: c dif is negative. will cancel flagyl and contact precautions Qualifiers: Diarrhea type: unspecified type Qualified Code(s): R19.7 - Diarrhea, unspecified (3) Altered mental status Onset Date: 12/12/17 Current Visit: Yes Status: Acute Plan: resolving. Will Qualifiers: Altered mental status type: delirium Qualified Code(s): R41.0 - Disorientation, unspecified (4) Acute kidney failure Onset Date: 10/03/16 Current Visit: No Status: Acute Plan: resolved. Will continue to monitor Qualifiers: Acute renal failure type: with acute renal cortical necrosis Qualified Code (s): N17.1 - Acute kidney failure with acute cortical necrosis Discharge Plan: Home - Code Status/Comfort Care Code Status Assessed: No Code Status: Full Code Physician Review: Patient Assessed, Agree with Above Assessment and Plan Critical Care: No Time Spent Managing Pts Care (In Minutes): 25
[2017-12-14] MEDS: ATORVASTATIN 10 MG TAB PO SCH (21:23)
[2017-12-14] MEDS: MIRTAZAPINE 15 MG TAB PO SCH (21:23)
[2017-12-15 05:10] LABS: BUN Blood Urea Nitrogen 12 mg/dL (7-18); Bicarbonate 30 mmol/L (21-32); Glucose Level 181 mg/dL (74-106); Magnesium 1.6 mg/dL (1.8-2.4); Potassium 4.6 mmol/L (3.5-5.1); Sodium Level 138 mmol/L (136-145)
[2017-12-15] MEDS ORDERED: MAGNESIUM SULFATE 1 gm IVPB 1 GM/100 ML BAG IV ONE (05:14)
[2017-12-15] MEDS: INSULIN -REGULAR HUMAN 50 UNIT/0.5 ML ML SQ SCH ×4 (07:30→21:57)
[2017-12-15] MEDS: ENOXAPARIN 40 MG/0.4 ML SQ SCH (08:12)
[2017-12-15] MEDS: FUROSEMIDE 40 MG/4 ML VIAL IV SCH (08:12)
[2017-12-15] MEDS: GABAPENTIN 300 MG CAP PO SCH ×3 (08:13→21:56)
[2017-12-15] MEDS: TAMSULOSIN 0.4 MG SR CAP PO SCH (08:13)
[2017-12-15] MEDS: ALLOPURINOL 100 MG TAB PO SCH (08:13)
--- NOTE | 2017-12-15 10:10 | P.PN ---
Subjective Date of Service: 12/15/17 Primary Care Provider: radha Chief Complaint: Altered mental status; hypotension; anemia Subjective: No new changes Review of Systems 10-point ROS is otherwise unremarkable Physical Examination - Vital Signs Temperature: 98.4 F Blood Pressure: 134/54 Pulse: 102 Respirations: 20 Pulse Ox (%): 96 - Physical Exam General: Alert, In no apparent distress HEENT: Atraumatic, PERRLA, EOMI Neck: Supple, JVD not distended Respiratory: Clear to auscultation bilaterally, Normal air movement Cardiovascular: Regular rate/rhythm, Normal S1 S2 Gastrointestinal: Normal bowel sounds, No tenderness Musculoskeletal: No tenderness Integumentary: No rashes Neurological: Normal speech, Normal tone, Normal affect Lymphatics: No axilla or inguinal lymphadenopathy - Studies Microbiology Data (last 24 hrs): 12/12/17 01:55 Catheterized Urine [place] Count - Final >100,000 CFU/ML. 12/12/17 01:55 Catheterized Urine - Final Assessment & Plan - Problems (Diagnosis) (1) Dysphagia Current Visit: Yes Status: Acute Plan: Patient family at the bedside. Stated she is on nectar thick diet. Will change to that. Will have her seen by speech therapy. Qualifiers: Dysphagia type: oral phase Qualified Code(s): R13.11 - Dysphagia, oral phase (2) Diarrhea Current Visit: Yes Status: Acute Plan: c dif is negative. will cancel flagyl and contact precautions Qualifiers: Diarrhea type: unspecified type Qualified Code(s): R19.7 - Diarrhea, unspecified (3) Altered mental status Onset Date: 12/12/17 Current Visit: Yes Status: Acute Plan: resolving. Will Qualifiers: Altered mental status type: delirium Qualified Code(s): R41.0 - Disorientation, unspecified (4) Acute kidney failure Onset Date: 10/03/16 Current Visit: No Status: Acute Plan: resolved. Will continue to monitor Qualifiers: Acute renal failure type: with acute renal cortical necrosis Qualified Code (s): N17.1 - Acute kidney failure with acute cortical necrosis Physician Review: Patient Assessed, Agree with Above Assessment and Plan Critical Care: No Time Spent Managing Pts Care (In Minutes): 20
[2017-12-15] MEDS: ATORVASTATIN 10 MG TAB PO SCH (21:56)
[2017-12-15] MEDS: MIRTAZAPINE 15 MG TAB PO SCH (21:57)
[2017-12-16 04:19] LABS: Absolute Neutrophil 6.2 K/uL (1.8-8.0); Basophils % 0.4 % (0-1.3); Eosinophils % 1.4 % (0-4.4); Hematocrit 26.1 % (36.0-45.0); Lymphocytes % 12.4 % (15.3-44.8); MCH 28.5 pg (27.0-35.0); MCV 89.2 fL (80-100); Monocytes % 11.7 % (3.3-12.3); RBC Red Blood Cell Count 2.93 M/uL (3.86-4.86)
[2017-12-16 04:36] LABS: BUN Blood Urea Nitrogen 10 mg/dL (7-18); Bicarbonate 32 mmol/L (21-32); Glucose Level 211 mg/dL (74-106); Magnesium 1.5 mg/dL (1.8-2.4); Potassium 4.2 mmol/L (3.5-5.1); Sodium Level 142 mmol/L (136-145)
[2017-12-16] MEDS ORDERED: Magnesium Sulfate 2gm IVPB 2 G/50 ML BAG IV ONE (06:30)
[2017-12-16] MEDS: INSULIN -REGULAR HUMAN 50 UNIT/0.5 ML ML SQ SCH ×4 (08:08→20:44)
--- NOTE | 2017-12-16 09:28 | CON ---
Reason For Consultation: 1.Anemia, history of perforated stomach. 2.Abnormal barium swallow test. History Of Present Illness: Ms. Johnson is an 87-year-old female, whose initial presentation co nsisted of perforated peptic ulcer disease. She was transferred to [facility] and has been treated. Surgery has been done eventually she has been also converted to J-tube form G-tu be. She comes with mental status change and generalized dehydration. After this, . She d enies any abdominal pain. Denies any hematemesis, melena, or hematochezia recuperating qu ite well She has also no idea why her condition deteriorated. Past Medical History: Obesity, hypertension, diabetes . Past Surgical History: Gastric perforation repair. Family History: No history of peptic ulcer disease. Social History: No alcohol or tobacco on a regular basis. Psychiatric History: None. Allergies: REVIEWED IN THE CHART. Medications: Reviewed in the chart. Review of Systems: General: She has some weight loss. No fever or chills. Pulmonary: Occasional cough. No expectoration. She denies any dysphagia although. Cardiac: Occasional shortness of breath. However at this time, no murmur, no extra breathing sounds . Musculoskeletal: Upper and lower extremities are normal and symmetrical. Some deformity is noted. Again symmetrical. Dermatologic: No jaclyn of pruritus. bruisability. No gross lesions noted. Pulmonary: No shortness of breath, cough, or expectoration. Cardiac: No palpitation. No heart murmur. Neuropsychiatric: None. Neuroendocrine: Other than obesity nothing new. Physical Examination: General: Elderly female, at this time. No other acute distress noted. Vital Signs: Hemodynamic and respiratory profile within normal range. HEENT: Atraumatic, normocephalic. Oropharyngeal area is clear. Neck: Supple. No lymphadenopathy. Trachea central in position. Chest: Clear to auscultation and percussion. Cardiovascular: Normal S1, S2. No S3, no S4. Abdomen: Soft, however, well made scar has been noted due to surgical and in addition to that, long in the central area. . Bowel sounds are present. No hepatomegaly. No splenomegaly. No succussion splash. Neurologic: Alert, oriented x3. Intact memory, mentation, and judgment. Can move all her extremiti es without any other problem. Diagnostic Data: Reviewed and analyzed. Impression, Plan, And Recommendation: The patient is a 87-year-old female with significant systemic symptoms with nausea, vomiting. CT scan shows a distended stomach AND gallbladder. However, she phoebe ht have had ERCP in the past. However, I am not sure of that. At this time, we will have to manage her nausea and vomiting with medication and conservative treatment. Etiology of distended stomach an d cholelithiasis could be incidental finding. Gastric outlet obstruction and gastroparesi s will be the primary concern. If she does not improve on conservative treatment, an EGD will be war ranted. I discussed with her and regarding the indications, contraindications, possible complications , and alternatives of EGD this procedure including rare fatality as a complication. Other discussion of complications included but not limited to possibility of bleeding, perforation, tear, infection, sepsis, need for surgery, need for blood transfusion, her and they are agreeable to this should it be necessary. CED/MARYJO Voice ID: [id number] Report ID: [id number]
[2017-12-16] MEDS: ENOXAPARIN 40 MG/0.4 ML SQ SCH (09:31)
[2017-12-16] MEDS: FUROSEMIDE 40 MG/4 ML VIAL IV SCH (09:32)
[2017-12-16] MEDS: TAMSULOSIN 0.4 MG SR CAP PO SCH (09:33)
[2017-12-16] MEDS: GABAPENTIN 300 MG CAP PO SCH ×3 (09:33→20:45)
[2017-12-16] MEDS: ALLOPURINOL 100 MG TAB PO SCH (09:33)
--- NOTE | 2017-12-16 13:31 | CON ---
Date of Consultation: 12/13/2017 An 87-year-old female, 424. Reason For Consultation: Dysphagia, weight loss. History Of Present Illness: Ms. Johnson is an 87-year-old female, who [facility] with [facility]. She has had history of anemia and acute mental status change. At this time, she does not give any history. I am unaware of any abdominal pain, odynophagia, dysphagia, however, she does have history of aspiration and pooling, especially on examination. I am not sure of weight loss, weight gain. Past Medical History: Other than above, unknown. Past Surgical History: Unknown. Family History: Unknown. Social History: Unknown. Psychiatric History: Other than mental status change, unknown. Allergies: REVIEWED IN THE CHART. Medications: Reviewed in the chart. Review of Systems: Impossible to obtain at this time due to the patient's condition. Physical Examination: General: Elderly female. At this time, no acute distress noted from respiratory or cardiac viewpoin t. Vital Signs: Hemodynamic and respiratory profile within normal range. HEENT: Atraumatic, normocephalic. Some evidence of wasting, bitemporal area. Neck: Supple. No lymphadenopathy. Trachea central in position. Chest: Poor air exchange due to lack of effort. Cardiac: S1, S2 appears to be somewhat irregular. Abdomen: Soft, nontender, nondistended. Excellent bowel sounds present in all quadrants. Ascites c annot be examined. Dermatologic: Multiple bruises in the upper extremities. Lower extremities, some swelling noted. Musculoskeletal: No selective loss has been noted, however, exam is limited. Neurologic: Alert and oriented x1. Memory, mentation, and judgment cannot be tested; however, she i s moving her extremities. Diagnostic Data: Reviewed and analyzed as previously discussed. In addition to that, hemoglobin and hematocrit 8.7 and 26. Albumin is 1.6. Impression, Plan, And Recommendation: Ms. Johnson is an 87-year-old female with multiple medica l problems including anemia, history of hyperglycemia, gout, perforation, and apparently was [facility] the [facility]. At the end of history taking, upon physical examination, although the patient completely woke up and gave a very relevant history. She became alert, oriented x3 and gave me relevant information. Given at this time, she certainly tells that she is able to eat better. DICTATION ENDS HERE. NMM/MODL Voice ID: [id number] Report ID: [id number]
--- NOTE | 2017-12-16 13:32 | P.DS ---
Admission Date: 12/12/17 Discharge Date: 12/16/17 Primary Care Provider: radha Disposition: TRANSFER TO [facility] Discharge Condition: GOOD Reason for Admission: Altered mental status; hypotension; anemia - Problems (1) Dysphagia Current Visit: Yes Status: Acute Qualifiers: Dysphagia type: oral phase Qualified Code(s): R13.11 - Dysphagia, oral phase (2) Diarrhea Current Visit: Yes Status: Acute Qualifiers: Diarrhea type: unspecified type Qualified Code(s): R19.7 - Diarrhea, unspecified (3) Altered mental status Onset Date: 12/12/17 Current Visit: Yes Status: Acute Qualifiers: Altered mental status type: delirium Qualified Code(s): R41.0 - Disorientation, unspecified (4) Acute kidney failure Onset Date: 10/03/16 Current Visit: No Status: Acute Qualifiers: Acute renal failure type: with acute renal cortical necrosis Qualified Code (s): N17.1 - Acute kidney failure with acute cortical necrosis Brief History of Present Illness: Patient was recently transfered from [place] to [facility]. The patient was there for a few hours when she developed respiratory distress. She recieved a unit of blood in the ER. No drop of HB. Hospital Course: Patient is doing well. had a modified barium swallow. Which she failed. She has been placed on nectar thick liquids. The patient has not been using the tube. Will transfer back to the [facility] today. She has been otherwise doing well. Vital Signs/Physical Exam: Temp Pulse Resp BP Pulse Ox 98.6 F 109 H 18 119/56 L 96 12/16/17 12:00 12/16/17 12:00 12/16/17 12:00 12/16/17 12:00 12/16/17 12:00 General: Alert, In no apparent distress HEENT: Atraumatic, PERRLA, EOMI Neck: Supple, JVD not distended Respiratory: Clear to auscultation bilaterally, Normal air movement Cardiovascular: Regular rate/rhythm, Normal S1 S2 Gastrointestinal: Normal bowel sounds, No tenderness Musculoskeletal: No tenderness Integumentary: No rashes Neurological: Normal speech, Normal tone, Normal affect Lymphatics: No axilla or inguinal lymphadenopathy Laboratory Data at Discharge: WBC 8.4 K/uL (4.3-10.9) D 12/16/17 04:05 Hgb 8.3 g/dL (12.0-15.0) L 12/16/17 04:05 Hct 26.1 % (36.0-45.0) L D 12/16/17 04:05 Plt Count 367 K/uL (152-406) 12/16/17 04:05 PT 14.0 SECONDS (9.5-12.5) H 12/12/17 01:35 INR 1.18 12/12/17 01:35 APTT 30.4 SECONDS (24.3-36.9) 12/12/17 01:35 Sodium 142 mmol/L (136-145) 12/16/17 04:05 Potassium 4.2 mmol/L (3.5-5.1) 12/16/17 04:05 BUN 10 mg/dL (7-18) 12/16/17 04:05 Creatinine 0.60 mg/dL (0.55-1.3) 12/16/17 04:05 Glucose 211 mg/dL (74-106) H 12/16/17 04:05 Phosphorus 2.9 mg/dL (2.5-4.9) 12/12/17 10:58 Magnesium 1.5 mg/dL (1.8-2.4) L 12/16/17 04:05 Total Bilirubin 0.4 mg/dL (0.2-1.0) 12/14/17 07:40 AST 34 U/L (15-37) 12/14/17 07:40 ALT 25 U/L (12-78) 12/14/17 07:40 Alkaline Phosphatase 905 U/L (45-117) H 12/14/17 07:40 Triglycerides 74 mg/dL (<150) 12/13/17 04:42 Cholesterol 107 mg/dL (<200) 12/13/17 04:42 HDL Cholesterol 17 mg/dL (40-60) L 12/13/17 04:42 Cholesterol/HDL Ratio 6.29 12/13/17 04:42 Lipase 118 U/L (73-393) 12/12/17 00:35 Home Medications: Allopurinol [Zyloprim*] 100 mg PO DAILY 10/03/16 Atorvastatin Calcium [Lipitor*] 10 mg PO BEDTIME 10/03/16 Furosemide [Lasix*] 40 mg PO DAILY 10/03/16 Ropinirole HCl [Requip*] 2 mg PO BID 10/03/16 Acetaminophen with Codeine [Acetaminophen-Cod #3 Tablet] 650 mg PO Q6H PRN 08/29 Aspirin 81 mg PO DAILY 08/29/17 Clopidogrel Bisulfate [Plavix*] 75 mg PO DAILY 08/29/17 Meclizine HCl [Antivert*] 25 mg PO TID PRN 08/29/17 Tamsulosin [Flomax*] 0.4 mg PO DAILY #30 cap 09/03/17 Tramadol HCl [Ultram] 2 tab PO Q8H PRN MDD 300 mg 09/22/17 Cranberry Fruit Extract 200 mg PO TID cap 09/27/17 Gabapentin [Gralise] 300 mg PO DAILY AFTER SUPPER 12/12/17 L. Acidophilus/L.bulgaricus [Lactobacillus Tablet] 1 tab PO BID 12/12/17 Lidocaine 5% Patch [Lidoderm 5% Patch*] 1 patch TOP DAILY 12/12/17 Metoprolol Tartrate [Lopressor] 25 mg PO BID 12/12/17 Nystatin Powder [Mycostatin (Powder)*] TOP BID 12/12/17 Pantoprazole [Protonix Tab] 40 mg PO BID 12/12/17 Scopolamine 1 each TD Q3D 12/12/17 Diet: nectar thickening fluids Activity: Fall precautions Time spent managing pt's care (in minutes): 30
[2017-12-16] MEDS: MIRTAZAPINE 15 MG TAB PO SCH (20:45)
[2017-12-16] MEDS: ATORVASTATIN 10 MG TAB PO SCH (20:45)
[2017-12-17 05:58] LABS: BUN Blood Urea Nitrogen 9 mg/dL (7-18); Bicarbonate 34 mmol/L (21-32); Glucose Level 153 mg/dL (74-106); Magnesium 1.6 mg/dL (1.8-2.4); Phosphorus 3.1 mg/dL (2.5-4.9); Potassium 4.1 mmol/L (3.5-5.1); Sodium Level 142 mmol/L (136-145)
[2017-12-17] MEDS ORDERED: MAGNESIUM SULFATE 1 gm IVPB 1 GM/100 ML BAG IV ONE (06:33)
[2017-12-17] MEDS: INSULIN -REGULAR HUMAN 50 UNIT/0.5 ML ML SQ SCH ×2 (07:30→11:39)
[2017-12-17 08:14] VITALS: BP 101/39; TEMP 98.7
[2017-12-17] MEDS: FUROSEMIDE 40 MG/4 ML VIAL IV SCH (08:51)
[2017-12-17] MEDS: ALLOPURINOL 100 MG TAB PO SCH (08:52)
[2017-12-17] MEDS: ENOXAPARIN 40 MG/0.4 ML SQ SCH (08:52)
[2017-12-17] MEDS: GABAPENTIN 300 MG CAP PO SCH ×2 (08:52→14:47)
[2017-12-17] MEDS: TAMSULOSIN 0.4 MG SR CAP PO SCH (08:52)
[2017-12-17 09:46] VITALS: O2SAT 94
--- NOTE | 2017-12-17 12:02 | P.PN ---
Subjective Date of Service: 12/17/17 Primary Care Provider: radha Chief Complaint: Altered mental status; hypotension; anemia Subjective: No new changes (Patient discharge held due to paperwork) Review of Systems 10-point ROS is otherwise unremarkable Respiratory: Shortness of Breath (respiratory at bedside normal pulse oxyimeter) Physical Examination - Vital Signs Temperature: 98.7 F Blood Pressure: 101/39 Pulse: 90 Respirations: 16 Pulse Ox (%): 98 - Physical Exam General: Alert, In no apparent distress HEENT: Atraumatic, PERRLA, EOMI Neck: Supple, JVD not distended Respiratory: Clear to auscultation bilaterally, Normal air movement Cardiovascular: Regular rate/rhythm, Normal S1 S2 Gastrointestinal: Normal bowel sounds, No tenderness Musculoskeletal: No tenderness Integumentary: No rashes Neurological: Normal speech, Normal tone, Normal affect Lymphatics: No axilla or inguinal lymphadenopathy - Studies Microbiology Data (last 24 hrs): 12/12/17 02:30 Blood - Blood Aerobic Blood Culture - Final No growth in 5 days. 12/12/17 02:30 Blood - Blood Anaerobic Blood Culture - Final No growth in 5 days. 12/12/17 00:35 Blood - Blood Aerobic Blood Culture - Final No growth in 5 days. 12/12/17 00:35 Blood - Blood Anaerobic Blood Culture - Final Assessment & Plan - Problems (Diagnosis) (1) Dysphagia Current Visit: Yes Status: Acute Plan: Patient family at the bedside. Stated she is on nectar thick diet. Will change to that. Will have her seen by speech therapy. Qualifiers: Dysphagia type: oral phase Qualified Code(s): R13.11 - Dysphagia, oral phase (2) Diarrhea Current Visit: Yes Status: Acute Plan: c dif is negative. will cancel flagyl and contact precautions Qualifiers: Diarrhea type: unspecified type Qualified Code(s): R19.7 - Diarrhea, unspecified (3) Altered mental status Onset Date: 12/12/17 Current Visit: Yes Status: Acute Plan: resolving. Will Qualifiers: Altered mental status type: delirium Qualified Code(s): R41.0 - Disorientation, unspecified (4) Acute kidney failure Onset Date: 10/03/16 Current Visit: No Status: Acute Plan: resolved. 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 Has had a long hospitalization. She states she feels like dying to her children. Yesterday they asked for hospice. This was not a requirement for her return to [facility]. She needs PT. However an antidepressant in the future may be helpful. Physician Review: Patient Assessed, Agree with Above Assessment and Plan Critical Care: No Time Spent Managing Pts Care (In Minutes): 25
== END 2017-12-17 15:24 | DRG 811 ==
LOC: ER 23:48 → ERHOLD 12-12 04:18 → 3RD-ICU 12-12 05:54 → 4TH 12-12 14:20
PROVIDERS: ADMIT Hospitalist; ATTEND Internal Medicine
PROC: 30233N1 Transfusion of Nonautologous Red Blood Cells into Peripheral Vein, Percutaneous Approach (ICD-10-PCS; principal; 2017-12-12)
PROC: 06HM33Z Insertion of Infusion Device into Right Femoral Vein, Percutaneous Approach (ICD-10-PCS; 2017-12-12)
DX: D62 Acute posthemorrhagic anemia (principal); N17.1 Acute kidney failure with acute cortical necrosis; E87.0 Hyperosmolality and hypernatremia; J90 Pleural effusion, not elsewhere classified; E66.2 Morbid (severe) obesity with alveolar hypoventilation; K92.2 Gastrointestinal hemorrhage, unspecified; I95.9 Hypotension, unspecified; E11.649 Type 2 diabetes mellitus with hypoglycemia without coma; R13.11 Dysphagia, oral phase; R19.7 Diarrhea, unspecified; R41.0 Disorientation, unspecified; F43.20 Adjustment disorder, unspecified; M10.9 Gout, unspecified; E86.0 Dehydration; I10 Essential (primary) hypertension; R11.2 Nausea with vomiting, unspecified; I25.10 Atherosclerotic heart disease of native coronary artery without angina pectoris; G25.81 Restless legs syndrome; F32.9 Major depressive disorder, single episode, unspecified; K21.9 Gastro-esophageal reflux disease without esophagitis; I48.91 Unspecified atrial fibrillation; E78.5 Hyperlipidemia, unspecified; Z79.02 Long term (current) use of antithrombotics/antiplatelets; Z79.82 Long term (current) use of aspirin; Z93.1 Gastrostomy status; Z93.4 Other artificial openings of gastrointestinal tract status; Z88.5 Allergy status to narcotic agent; Z88.2 Allergy status to sulfonamides; Z88.7 Allergy status to serum and vaccine; Z88.8 Allergy status to other drugs, medicaments and biological substances; Z79.4 Long term (current) use of insulin; I25.2 Old myocardial infarction; Z95.1 Presence of aortocoronary bypass graft; Z95.5 Presence of coronary angioplasty implant and graft; Z90.3 Acquired absence of stomach [part of]; Z68.29 Body mass index [BMI] 29.0-29.9, adult
CPT/HCPCS: 36415; 70450; 71045; 71260; 72125; 74177; 74230; 80048; 80053; 80061; 80076; 81003; 82140; 82274; 82550; 82553; 82805; 82962; 83690; 83735; 84100; 84145; 84484; 85025; 85610; 85730; 86850; 86900; 86901; 87040; 87045; 87046; 87086; 87088; 87493; 89055; 93005; 97163; 99285; J0692; J1650; J3370; J3475; J7030; P9016; Q9967